=== PATIENT | male | born 1945 | race Caucasian/White ===

== ENCOUNTER 2017-03-14 09:18 | Emergency (ER) | payer OTHER, MEDICARE ==
[~2017-03-14] VITALS: Ht 180.3 cm; Wt 127.0 kg
[~2017-03-14 09:18] MED LIST: AMLO5TAB2 PO; ASPI81CH PO; ATOR1TAB18 PO; CITA20TA4 PO; DRON40TA PO; GLIP2.5T6 PO; HYDR50TAB PO; LISI40TAB PO; METO100T PO; NICO14DI3 TD; OMEP20CA3 PO; PRAD150C PO; TERA1CAP46 PO; VITA50003 PO
[2017-03-14] MEDS ORDERED: METO100T PO (09:59)
[2017-03-14] MEDS ORDERED: METF500T PO ×2 (09:59)
[2017-03-14] MEDS ORDERED: METF1000 PO (09:59)
[2017-03-14] MEDS ORDERED: K-TA10TA2 PO ×2 (09:59)
[2017-03-14] MEDS ORDERED: GABAPENTIN 300 MG CAP PO ONE (10:45)
[2017-03-14] MEDS ORDERED: VALI5TAB PO (11:18)
[2017-03-14] MEDS ORDERED: GABA-282 PO (11:18)
[2017-03-14 11:30] VITALS: BP 108/65
[2017-03-14] MEDS ORDERED: NORCO, ANEXSIA 5/325MG TABLET (HYDROcodone/ACETAMINOPHEN) PO ONE (11:30)
--- NOTE | 2017-03-14 11:49 | ED PDOC ---
Post-Departure Follow-Up AT THIS TIME, MADE AWARE THAT PT IS REFUSING TO GET INTO CAR FROM THE WHEEL CHAIR, STATING HE CAN'T. IS SIGNIFICANTLY SMALLER THAN PT AND UNABLE TO HELP HIM AMBULATE. PT ALREADY HAS VALIUM, GABAPENTIN AND NORCO FROM ER VISIT. PT IS DIABETIC AND SOLUM-MEDROL NOT APPROPRIATE FOR THIS PT AT THIS TIME. TORADOL OR OTHER ANTI-INFLAMMATORIES ALSO NOT INDICATED PT IS ON ASA AND XARELTO. PT DENIES ANY FECAL INCONTINENCE, NUMBNESS, WEAKNESS. IMAGING NOT INDICATED AT THIS TIME. AT THIS TIME, ATTEMPTED TO CHANGE DISPOSITION TO ADMITTED. [facility] STATING CANNOT CHANGE DISPOSITION AT THIS TIME. PT IS ADMITTED BY DR. YOUNG, HOSPITALIST. AT THIS TIME ([id number]), PT STATED HE DID NOT WANT TO BE ADMITTED AND STOOD UP OUT OF THE WHEEL CHAIR IN THE EXAM ROOM AND NOW WISHES TO GO HOME. SPOKE WITH RESIDENT AND HOSPITALIST AT THIS TIME REGARDING THIS PT. ADVISED HE WAS ALREADY DISCHARGED AND HAS ALREADY SIGNED THE DISCHARGE PAPERS. PT AND LEAVING DEPARTMENT AT THIS TIME. YENI CERRATO PA-C Mar 14, 2017 11:49
[2017-03-14] MEDS ORDERED: XARE20TA PO (13:21)
[2017-03-14] MEDS ORDERED: ASPI81TA7 PO (13:21)
[2017-03-14] MEDS ORDERED: POTA20TA PO ×2 (13:21)
== END 2017-03-14 11:33 | disposition home or self-care (01) ==
LOC: M ED 10:43
DX: M54.42 Lumbago with sciatica, left side (principal); R01.1 Cardiac murmur, unspecified; E11.9 Type 2 diabetes mellitus without complications; I25.10 Atherosclerotic heart disease of native coronary artery without angina pectoris; Z95.5 Presence of coronary angioplasty implant and graft; Z79.01 Long term (current) use of anticoagulants; F17.200 Nicotine dependence, unspecified, uncomplicated; Z79.899 Other long term (current) drug therapy; Z79.84 Long term (current) use of oral hypoglycemic drugs; Z79.82 Long term (current) use of aspirin
CPT/HCPCS: 96372; 99282; J3360

== ENCOUNTER 2017-03-17 09:54 | Inpatient (IN) | payer OTHER, MEDICARE ==
[~2017-03-17] VITALS: Ht 182.9 cm; Wt 103.0 kg
[2017-03-17] MEDS: LIDOCAINE 5% (LIDODERM) PATCH TD SCH (09:00)
[~2017-03-17 09:54] MED LIST changes: +ASPI81TA7 PO; +GABA-282 PO; +K-TA10TA2 PO; +METF1000 PO; +METF500T PO; +POTA20TA PO; +VALI5TAB PO; +XARE20TA PO
[2017-03-17] MEDS ORDERED: GABA-282 PO (10:28)
[2017-03-17] MEDS ORDERED: DIAZ5TAB PO (10:28)
[2017-03-17] MEDS ORDERED: SODIUM CHLORIDE 0.9% 1000 ML IV ONE (10:30)
[2017-03-17] MEDS ORDERED: ONDANSETRON 4MG/2ML VIAL (J2405) IV ONE (10:30)
[2017-03-17] MEDS ORDERED: MORPHINE 4 MG/ML 1ML SYRINGE IV ONE (10:30)
[2017-03-17 10:58] LABS: BASO # 0.1 K/mm3 (0.0-0.2); BASO % 0.4 % (0.0-1.0); EOS # 0.4 K/mm3 (0.0-0.50); EOS % 2.9 % (0.0-3.0); LARGE UNSTAINED CELL # 0.2 K/mm3 (0.0-0.4); LARGE UNSTAINED CELL % 1.7 % (0.0-4.0); LYMPH # 2.2 K/mm3 (1.5-4.5); LYMPH % 15.9 % (24.0-44.0); MEAN CORPUSCULAR HEMOGLOBIN 27.8 pg (27.0-33.0); MEAN CORPUSCULAR HGB CONC 31.6 g/dl (32.0-36.5); MONO # 0.8 K/mm3 (0.0-0.8); MONO % 6.3 % (0.0-5.0); NEUTROPHILS # 9.1 K/mm3 (1.8-7.7); NEUTROPHILS % 72.7 % (36.0-66.0); PLATELET COUNT, AUTOMATED 298 k/mm3 (150-450); RED CELL DISTRIBUTION WIDTH 14.5 % (11.5-14.5); WHITE BLOOD COUNT 12.5 K/mm3 (4.0-10.0)
[2017-03-17 11:15] LABS: ANION GAP 5 MEQ/L (8-16); BLOOD UREA NITROGEN 17 MG/DL (7-18); CALCIUM LEVEL 9.2 MG/DL (8.8-10.2); CARBON DIOXIDE LEVEL 30 MEQ/L (21-32); CHLORIDE LEVEL 106 MEQ/L (98-107); CREATININE FOR GFR 0.94 MG/DL (0.70-1.30); GLOMERULAR FILTRATION RATE > 60.0 (>49); GLUCOSE, FASTING 130 MG/DL (80-110); POTASSIUM SERUM 4.5 MEQ/L (3.5-5.1); SODIUM LEVEL 141 MEQ/L (136-145)
[2017-03-17] MEDS ORDERED: ACETAMINOPHEN TAB 650MG DOSE (2X325MG) PO PRN (12:45)
[2017-03-17] MEDS ORDERED: ONDANSETRON 4MG/2ML VIAL (J2405) IV PRN (12:45)
[2017-03-17] MEDS ORDERED: GLUCOSE 4 GM CHEW TABLET PO PRN (12:45)
[2017-03-17] MEDS ORDERED: DEXTROSE 50% 50 ML SYRINGE IV PRN (12:45)
[2017-03-17] MEDS ORDERED: GLUCAGON FOR INJ 1 MG VIAL (J1610) SC PRN (12:45)
[2017-03-17] MEDS ORDERED: ONDANSETRON 4 MG TAB (S0181) PO PRN (12:45)
--- NOTE | 2017-03-17 15:06 | HPEPDOC ---
Medical History and Physical Date of Admission Mar 17, 2017 at 12:39 History and Physical HISTORY AND PHYSICAL Date of admission: 03/17/2017 PCP: Dr. Manoj Mac at the [facility] Chief complaint: back pain HPI: 71-year-old male with atrial fibrillation status post ablation and pacemaker placement, coronary artery disease status post stents, diabetes mellitus type 2, hypertension, "a bad valve," who presented to the emergency department because his lower back hurt. Patient was seen in our emergency department for the same symptoms on . At that time, the patient was initially discharged from the ER, but the patient then stated he was unable to walk, so he was offered admission. The admitting resident physician went to see him, but he did not want to stay in the hospital and he stood up and walked, so he was subsequently discharged from the emergency department. At that time, he was given prescriptions for Valium and Neurontin. He proceeded to go to the emergency department at [facility] on Saturday. He tells me that they gave him some medication but he is not sure what it was. He is returning today because he states that he continues to be in pain. He states the pain is located at the center of his back and runs down his left leg. He says it began approximately 4 days ago. He describes it as feeling like some has kicked him in the back and stabbed him. He says that he has frequently had this same pain before, but it has never been this bad. He describes it as constant. Of note, the patient was taking the Valium more frequently than he was prescribed, but has not been taking the Neurontin. The patient initially says that nothing makes it better and nothing makes it worse, but after further discussion, he states that if he walks for a long distance, that bothers his back. He also states that his daughter gave him one of her tramadol, and that did not help. He denies any numbness or tingling in his groin. He states that if he attempts to urinate while standing, it is very painful, but if he urinates into the urinal while laying in bed, he is able to urinate without any difficulty. The patient does report several episodes of loose stools over the last couple days. He states that he will know he has to use the restroom, but they are so loose that he sometimes has an accident before he is able to make it to the commode. In the emergency department a rectal exam was performed, and was noted to show normal rectal tone Past medical history: Atrial fibrillation, coronary artery disease, diabetes mellitus type 2, hypertension, "a bad valve" that the patient is unable to further describe nor is he able to describe which valve it is Past surgical history: Cardiac ablation, pacemaker placement, back surgery, knee surgery, cardiac stents Family history: Diabetes mellitus type 2, coronary artery disease Social history: The patient used to smoke approximately one pack per day, he currently has decreased it to one third of a pack per day. He reports drinking heavily in the past, but states that he quit approximately 6-7 years ago. He denies any drug use. Allergies: No known drug allergies Review of systems: General: Negative for fever and chills Eyes: Negative for vision changes and ocular discharge ENT: Negative for sore throat and nose bleed Cardiovascular: Negative for chest pain and palpitations Respiratory: Negative for cough and shortness of breath GI: Negative for nausea and vomiting, positive for diarrhea Musculoskeletal: Positive for back pain Skin: Negative for rash Neuro: Negative for headache, dizziness, numbness. The patient reports occasional tingling in his left foot but none at the moment. Psych: Negative for depression and suicidal ideation Endocrine: Negative for polyuria : Positive for dysuria Heme: Negative for bleeding Home meds: See below Physical exam: Vital signs: Vital Sign - Last 24 Hours 03/17/17 03/17/17 03/17/17 03/17/17 10:19 10:24 10:32 10:39 Temp 97.9 Pulse 66 64 76 Resp 18 B/P (MAP) 178/79 (112) Pulse Ox 93 94 93 O2 Delivery Room Air 03/17/17 03/17/17 03/17/17 03/17/17 10:54 10:56 10:58 11:09 Pulse 60 60 Resp 14 B/P (MAP) 171/76 (107) Pulse Ox 94 88 03/17/17 03/17/17 03/17/17 03/17/17 11:10 11:13 11:24 11:39 Pulse 60 60 Resp 16 B/P (MAP) 147/69 (95) Pulse Ox 87 88 03/17/17 03/17/17 03/17/17 03/17/17 11:43 11:54 11:58 12:09 Pulse 60 60 B/P (MAP) 134/80 (98) 136/62 (86) Pulse Ox 87 88 03/17/17 03/17/17 03/17/17 03/17/17 12:39 12:43 12:58 13:00 Temp 99.6 Pulse 62 60 102 Resp 18 B/P (MAP) 145/72 (96) 139/65 (89) 137/91 (106) Pulse Ox 89 88 97 O2 Delivery Room Air 03/17/17 03/17/17 03/17/17 03/17/17 13:13 13:28 13:43 13:58 Pulse 60 66 74 60 B/P (MAP) 207/95 (132) Pulse Ox 92 90 91 90 03/17/17 03/17/17 03/17/17 14:13 14:28 14:59 Temp 98.5 Pulse 60 60 81 Resp 18 B/P (MAP) 142/78 (99) Pulse Ox 88 86 96 Gen.: awake, alert, no acute distress Eyes: Extraocular movements intact, normal sclera ENT: Moist mucous membranes Cardiovascular: RRR Lungs: clear to auscultation bilaterally, no rales, rhonchi, or wheeze Abdomen: Soft, NT/ND, normal BS Musculoskeletal: ipsilateral and contralateral straight leg elicits only back pain Extremities: No peripheral edema Neuro: alert and oriented 3, normal speech, both legs are about 3-4/5 strength , however, they are equal and symmetric; sensation to touch is equal in the BLE Psych: Normal mood with congruent affect Labs and radiology: See below WBC 12.5 BMP unremarkable UA shows 1+ leuk esterase, 32 wbc's, 1+ bacteria Assessment and plan: 71-year-old male with atrial fibrillation status post ablation and pacemaker placement, coronary artery disease status post stents, diabetes mellitus type 2 , hypertension, "a bad valve," who presented to the emergency department because his lower back hurt. He is admitted for intractable back pain, as well as possible UTI. 1. Possible UTI: We'll start the patient on Rocephin as well as check urine and blood cultures. The patient is afebrile, but his white count is slightly elevated to 12.5. The patient has not received any steroids at our facility, but we do not know what he received at [facility] emergency department. 2. Intractable back pain: The patient denies any saddle anesthesia, and he is not experiencing urinary retention. He reports very loose stools, and although he has had a couple accidents, he reports that he can feel when he needs to go, he just has trouble making it to the bathroom quickly enough. His straight leg exam is negative. Rectal exam performed by the ED physician showed normal rectal tone. I do not believe that this represents cauda equina. The patient was started on Valium and Neurontin recently, which we will continue. We will also add narcotics as needed for pain control, as well as Flexeril and a lidocaine patch. Given that he has diabetes, as well as the fact that he is on a blood thinner, we will attempt to avoid any steroids. Additionally, because of the blood thinner, we will also attempt to avoid any NSAIDs. The patient reports that he follows with Dr. Toth, one [facility] the [facility] at [facility] orthopedics. If the patient continues to be in persistent pain, we may consider consultation with their group. If he were to require imaging, he would need a CT myelogram, as his pacemaker prevents him from getting an MRI. We'll also get PT and OT to work with the patient. 3. A. fib status post ablation and pacemaker placement: The patient appears to be in sinus rhythm at this time. Continue his home metoprolol and home several toe. 4. Coronary artery disease status post stents: The patient currently denies any chest pain. We'll continue his home aspirin, statin, beta winston. 5. Diabetes mellitus type 2: We will hold the patient's home metformin. We will use sliding scale insulin while the patient is in-house. 6. Hypertension: The patient has had a few episodes of elevated blood pressure in the ER, but he has also had several readings that are normal. I suspect that this might be related to his pain. We'll continue his home beta winston, and will otherwise treat his underlying pain. DVT prophylaxis: Home Xarelto Dispo: Place in observation on the service of Dr. Portillo CODE STATUS: DO NOT INTUBATE Vital Signs Vital Signs Date Time Temp Pulse Resp B/P (MAP) Pulse Ox O2 Delivery O2 Flow Rate FiO2 03/17/17 14:59 98.5 81 18 142/78 (99) 96 03/17/17 13:00 Room Air Laboratory Data Labs 24H Laboratory Tests 2 03/17/17 10:47: White Blood Count 12.5H, Red Blood Count 4.56, Hemoglobin 12.7L, Hematocrit 40.1L, Mean Corpuscular Volume 88.0, Mean Corpuscular Hemoglobin 27.8, Mean Corpuscular Hemoglobin Concent 31.6L, Red Cell Distribution Width 14.5, Platelet Count 298, Neutrophils (%) (Auto) 72.7H, Lymphocytes (%) (Auto) 15.9L, Monocytes (%) (Auto) 6.3H, Eosinophils (%) (Auto) 2.9, Basophils (%) (Auto) 0.4 , Neutrophils # (Auto) 9.1H, Lymphocytes # (Auto) 2.2, Monocytes # (Auto) 0.8, Eosinophils # (Auto) 0.4, Basophils # (Auto) 0.1, Large Unclassified Cells % 1.7 , Large Unclassified Cells # 0.2, Urine Appearance HAZY, Urine Color YELLOW, Urine pH 5.0, Urine Specific Curran 1.021, Urine Protein 2+H, Urine Glucose (UA ) NEGATIVE, Urine Ketones NEGATIVE, Urine Urobilinogen 0.2, Urine Bilirubin NEGATIVE, Urine Leukocyte Esterase 1+H, Urine Blood NEGATIVE, Urine Nitrite NEGATIVE, Urine WBC (Auto) 32H, Urine RBC (Auto) 5H, Urine Hyaline Casts (Auto) 0, Urine Bacteria (Auto) 1+H, Urine Squamous Epithelial Cells 0, Urine Mucus ( Auto) SMALL, Urine Sperm (Auto) , Anion Gap 5L, Glomerular Filtration Rate > 60.0, Blood Urea Nitrogen 17, Creatinine 0.94, Sodium Level 141, Potassium Level 4.5, Chloride Level 106, Carbon Dioxide Level 30, Calcium Level 9.2 CBC/BMP Laboratory Tests 03/17/17 10:47 Red Blood Count 4.56, Mean Corpuscular Volume 88.0, Mean Corpuscular Hemoglobin 27.8, Mean Corpuscular Hemoglobin Concent 31.6 L, Red Cell Distribution Width 14.5, Neutrophils (%) (Auto) 72.7 H, Lymphocytes (%) (Auto) 15.9 L, Monocytes (% ) (Auto) 6.3 H, Eosinophils (%) (Auto) 2.9, Basophils (%) (Auto) 0.4, Neutrophils # (Auto) 9.1 H, Lymphocytes # (Auto) 2.2, Monocytes # (Auto) 0.8, Eosinophils # (Auto) 0.4, Basophils # (Auto) 0.1, Calcium Level 9.2 Home Medications Scheduled Aspirin (Aspirin) 81 Mg Tab, 81 MG PO DAILY Atorvastatin Calcium (Atorvastatin Calcium) 80 Mg Tab, 80 MG PO QPM Gabapentin (Gabapentin) 300 Mg Cap, 300 MG PO TID Metformin Hydrochloride (Metformin HCl) 1,000 Mg Tab, 1,000 MG PO QAM Metformin Hydrochloride (Metformin HCl) 500 Mg Tab, 500 MG PO BID TAKE AT NOON AND DINNERTIME Metoprolol Tartrate (Metoprolol Tartrate) 100 Mg Tab, 100 MG PO BID Omeprazole (Omeprazole) 20 Mg Cap, 20 MG PO DAILY Potassium Chloride (Klor-Con M20) 20 Meq Tabcr, 40 MEQ PO QAM Potassium Chloride (Klor-Con M20) 20 Meq Tabcr, 20 MEQ PO QPM Rivaroxaban (Xarelto) 20 Mg Tab, 20 MG PO QPM Terazosin HCl (Terazosin HCl) 1 Mg Cap, 1 MG PO QPM Scheduled PRN Diazepam (Diazepam) 5 Mg Tab, 5 MG PO Q8H PRN for BACK PAIN Allergies Coded Allergies: No Known Drug Allergy (Verified Allergy, Unknown, 05/06/14) CJ YOUNG Mar 17, 2017 15:06
[2017-03-17] MEDS: cefTRIAXone SOD 1 GM in D5W MINI-BAG PLUS 50 ML IV SCH (15:42)
[2017-03-17] MEDS: MORPHINE 2 MG/ML 1ML SYRINGE IV PRN ×2 (15:43→22:33)
[2017-03-17] MEDS: GABAPENTIN 300 MG CAP PO SCH ×2 (15:45→21:20)
[2017-03-17 16:00] VITALS: BP 172/98
[2017-03-17] MEDS: PERCOCET 5MG/325MG TAB PO PRN ×2 (17:06→21:12)
[2017-03-17] MEDS: HumaLOG INSULIN (NovoLOG) PER UNIT SC SCH ×2 (17:08→21:00)
[2017-03-17] MEDS: **NOTE PATIENT COMMENT** MISC XX SCH (21:00)
[2017-03-17] MEDS: ATORVASTATIN 20 MG TAB PO SCH (21:19)
[2017-03-17] MEDS: RIVAROXABAN 20 MG TAB (XARELTO) PO SCH (21:19)
[2017-03-17] MEDS: DOCUSATE SODIUM 100 MG CAP PO SCH (21:20)
[2017-03-17] MEDS: METOPROLOL TARTRATE 100 MG TAB PO SCH (21:20)
[2017-03-17] MEDS: TERAZOSIN 1 MG CAP PO SCH (21:20)
[2017-03-17] MEDS: POTASSIUM CHLORIDE 10 MEQ SR TABLET PO SCH (21:21)
[2017-03-17 22:00] VITALS: BP 164/81
[2017-03-18] MEDS: MORPHINE 2 MG/ML 1ML SYRINGE IV PRN ×5 (03:27→22:08)
[2017-03-18 06:00] VITALS: BP 127/60
[2017-03-18 06:48] LABS: ANION GAP 6 MEQ/L (8-16); BLOOD UREA NITROGEN 20 MG/DL (7-18); CALCIUM LEVEL 8.5 MG/DL (8.8-10.2); CARBON DIOXIDE LEVEL 31 MEQ/L (21-32); CHLORIDE LEVEL 106 MEQ/L (98-107); CREATININE FOR GFR 1.03 MG/DL (0.70-1.30); GLOMERULAR FILTRATION RATE > 60.0 (>49); GLUCOSE, FASTING 169 MG/DL (80-110); MAGNESIUM LEVEL 1.7 MG/DL (1.8-2.4); POTASSIUM SERUM 4.3 MEQ/L (3.5-5.1); SODIUM LEVEL 143 MEQ/L (136-145)
[2017-03-18 07:21] LABS: BASO # 0.1 K/mm3 (0.0-0.2); BASO % 0.6 % (0.0-1.0); EOS # 0.5 K/mm3 (0.0-0.50); EOS % 4.3 % (0.0-3.0); LARGE UNSTAINED CELL # 0.2 K/mm3 (0.0-0.4); LYMPH # 2.5 K/mm3 (1.5-4.5); LYMPH % 20.5 % (24.0-44.0); MEAN CORPUSCULAR HEMOGLOBIN 28.5 pg (27.0-33.0); MEAN CORPUSCULAR HGB CONC 32.1 g/dl (32.0-36.5); MEAN CORPUSCULAR VOLUME 88.9 fl (80.0-96.0); MONO # 0.8 K/mm3 (0.0-0.8); NEUTROPHILS # 7.1 K/mm3 (1.8-7.7); NEUTROPHILS % 65.5 % (36.0-66.0); PLATELET COUNT, AUTOMATED 264 k/mm3 (150-450); RED CELL DISTRIBUTION WIDTH 14.5 % (11.5-14.5); WHITE BLOOD COUNT 10.9 K/mm3 (4.0-10.0)
[2017-03-18] MEDS: GABAPENTIN 300 MG CAP PO SCH ×3 (08:41→20:18)
[2017-03-18] MEDS: OMEPRAZOLE 20 MG CAP PO SCH (08:41)
[2017-03-18] MEDS: DOCUSATE SODIUM 100 MG CAP PO SCH ×2 (08:41→20:18)
[2017-03-18] MEDS: POTASSIUM CHLORIDE 10 MEQ SR TABLET PO SCH ×2 (08:41→20:18)
[2017-03-18] MEDS: METOPROLOL TARTRATE 100 MG TAB PO SCH ×2 (08:41→20:18)
[2017-03-18] MEDS: ASPIRIN 81 MG ENTERIC TAB PO SCH (08:42)
[2017-03-18] MEDS: HumaLOG INSULIN (NovoLOG) PER UNIT SC SCH ×4 (08:42→20:19)
[2017-03-18] MEDS: LIDOCAINE 5% (LIDODERM) PATCH TD SCH (08:43)
[2017-03-18] MEDS ORDERED: MAG SULF 1GM/100ML (MAG RUN) 1 GM in APPROPRIATE DILUENT 1 EA IV ONE (09:00)
[2017-03-18] MEDS: PERCOCET 5MG/325MG TAB PO PRN ×3 (10:37→20:19)
--- NOTE | 2017-03-18 12:01 | IPNPDOC ---
Subjective Date Seen The patient was seen on 03/18/17. Subjective Chief Complaint/HPI The patient is a 71-year-old male admitted with a reason for visit of Intractable Back Pain. Events since last encounter Patient reports still having back pain. Pain is below the gluteus coordinates the leg on the left. Patient describes that the pain goes down his left leg to his heel. Patient rates the pain at approximately 3 out of 10 when laying down and with sitting up or moving goes to a 10 out of 10. Physical therapy stopped by today the patient was able to sit on the edge of the bed. General: Denies: Chills Constitutional: Denies: Chills, Fever Eyes: Denies: Vision change ENT: Denies: Head Aches Skin: Denies: Rash, Lesions Pulmonary: Denies: Dyspnea, Cough Cardiovascular: Denies: Chest Pain, Palpitations Gastrointestinal: Denies: Nausea, Vomiting, Abdominal Pain Genitourinary: Denies: Dysuria, Frequency Musculoskeletal: Reports: Back Pain (radiates down to his left heel) Neurological: Denies: Weakness, Numbness Psych: Reports: Mood Normal Objective Physical Examination General Exam: Positive: Alert, Cooperative, No Acute Distress Eye Exam: Positive: PERRLA, EOMI ENT Exam: Positive: Atraumatic, Mucous membr. moist/pink, Pharynx Normal Neck Exam: Positive: Supple, Negative: JVD, thyromegaly Chest Exam: Positive: Clear to auscultation, Normal air movement Heart Exam: Positive: Rate Normal, Normal S1, Normal S2, Negative: Gallops, Murmurs, Rubs Abdomen Exam: Positive: Normal bowel sounds, Negative: Tenderness, Mass Extremity Exam: Positive: Normal pulses (radial pulses 2 out of 4 bilaterally. Pupils 2 out of 4 bilaterally.), Negative: Clubbing, Cyanosis, Edema Skin Exam: Positive: Nl turgor and temperature, Negative: Rash, Breakdown Neuro Exam: Positive: Normal Speech, Strength at 5/5 X4 ext (lower extremities. ), Sensation Intact (no numbness lower extremities.) Psych Exam: Positive: Mood NL, Oriented x 3 VS, I&O, 24H, Fishbone Vital Signs/I&O Vital Signs Date Time Temp Pulse Resp B/P (MAP) Pulse Ox O2 Delivery O2 Flow Rate FiO2 03/18/17 11:44 18 03/18/17 11:40 92 Room Air 03/18/17 08:41 59 127/60 03/18/17 06:00 97.9 I&O- Last 24 Hours up to 6 AM 03/18/17 06:00 Intake Total 1250 ml Output Total 800 ml Balance 450 ml Laboratory Data 24H LABS Laboratory Tests 2 03/17/17 16:50: Bedside Glucose (Misc Panel) 133H 03/17/17 21:14: Bedside Glucose (Misc Panel) 127H 03/18/17 05:58: White Blood Count 10.9H, Red Blood Count 4.13L, Hemoglobin 11.8L, Hematocrit 36.7L, Mean Corpuscular Volume 88.9, Mean Corpuscular Hemoglobin 28.5, Mean Corpuscular Hemoglobin Concent 32.1, Red Cell Distribution Width 14.5, Platelet Count 264, Neutrophils (%) (Auto) 65.5, Lymphocytes (%) (Auto) 20.5L, Monocytes (%) (Auto) 7.0H, Eosinophils (%) (Auto) 4.3H, Basophils (%) (Auto) 0.6, Neutrophils # (Auto) 7.1, Lymphocytes # (Auto) 2.5, Monocytes # (Auto) 0.8, Eosinophils # (Auto) 0.5, Basophils # (Auto) 0.1, Large Unclassified Cells % 2.0 , Large Unclassified Cells # 0.2, Anion Gap 6L, Glomerular Filtration Rate > 60.0, Blood Urea Nitrogen 20H, Creatinine 1.03, Sodium Level 143, Potassium Level 4.3, Chloride Level 106, Carbon Dioxide Level 31, Calcium Level 8.5L, Magnesium Level 1.7L 03/18/17 11:36: Bedside Glucose (Misc Panel) 116H CBC/BMP Laboratory Tests 03/18/17 05:58 Red Blood Count 4.13 L, Mean Corpuscular Volume 88.9, Mean Corpuscular Hemoglobin 28.5, Mean Corpuscular Hemoglobin Concent 32.1, Red Cell Distribution Width 14.5, Neutrophils (%) (Auto) 65.5, Lymphocytes (%) (Auto) 20.5 L, Monocytes (%) (Auto) 7.0 H, Eosinophils (%) (Auto) 4.3 H, Basophils (%) (Auto) 0.6, Neutrophils # (Auto) 7.1, Lymphocytes # (Auto) 2.5, Monocytes # ( Auto) 0.8, Eosinophils # (Auto) 0.5, Basophils # (Auto) 0.1, Calcium Level 8.5 L Microbiology Microbiology 03/17/17 Blood Culture, Received Pending 03/17/17 Blood Culture, Received Pending 03/17/17 Urine Culture - Final, Complete Assessment/Plan Patient having no symptoms of UTI. Stopping patient's antibiotic today. Problems (1) Intractable back pain Problem Text: Patient has received multiple doses of pain medication. Patient is currently on Percocet 1 tab every 4 hours when necessary, morphine every 4 hours 2 mg IV when necessary, Valium 5 mg every 8 hours when necessary, gabapentin 300 mg 3 times a day. Patient also is receiving Zofran when necessary 's every 6 hours. Patient still had some pain on exam. Patient had full muscle strength bilaterally. Was unable to walk for PT today. May need to order a CT myelogram or MRI. Patient has a history of a pacemaker. This is to better assess structure of the spine. Patient has been seen by orthopedist. May need to refer back for pain management. (2) Left-sided low back pain with sciatica Status: Acute Problem Text: Patient still complaining of pain going down his leg. Pain is not as bad falling down. May need to assess with imaging. (3) Control of atrial fibrillation with pacemaker Problem Text: Patient is in sinus rhythm at this time. Continue metoprolol and Xarelto. (4) Diabetes mellitus type 2 in obese Problem Text: Continue to hold patient's metformin. Will use sliding scale insulin. (5) Hypertension Problem Text: Continue patient's home beta winston. Monitor as needed. (6) CAD (coronary artery disease) Problem Text: Patient's history of CT. Continue patient's aspirin, statin, beta winston. Monitor as needed. Plan / VTE VTE Prophylaxis Ordered?: Yes (home Xarelto) GME ATTESTATION GME ATTESTATION My preceptor for this patient encounter was Dr. Portillo and he was physically present in the building during the encounter and was fully available. As needed , all aspects of the patient interview, examination, medical decision making process, and medical care plan development were reviewed and approved by the preceptor. Preceptor is aware and concurs with the plan as stated in the body of this note and will attest to such by his/her cosignature. VIOLET CHAVES DO Mar 18, 2017 12:01
[2017-03-18 14:00] VITALS: BP 136/65
[2017-03-18] MEDS: cefTRIAXone SOD 1 GM in D5W MINI-BAG PLUS 50 ML IV SCH (15:50)
[2017-03-18] MEDS: ATORVASTATIN 20 MG TAB PO SCH (20:17)
[2017-03-18] MEDS: TERAZOSIN 1 MG CAP PO SCH (20:18)
[2017-03-18] MEDS: RIVAROXABAN 20 MG TAB (XARELTO) PO SCH (20:18)
[2017-03-18] MEDS: **NOTE PATIENT COMMENT** MISC XX SCH (20:19)
[2017-03-18 22:00] VITALS: BP 145/76
[2017-03-19] MEDS: PERCOCET 5MG/325MG TAB PO PRN ×4 (02:00→16:55)
--- NOTE | 2017-03-19 02:13 | REP ---
Clinical: Pacemaker. Arnaud: 05/06/2014. Findings: Mediastinum and cardiac silhouette are within normal limits. Dual lead pacemaker in satisfactory position. Lung lan are clear without focal consolidation, effusion, or pneumothorax. Skeletal structures intact. Impression: No acute cardiopulmonary process or focal consolidation appreciated. Signed by Rosendo Victor MD 03/19/2017 02:05 A
[2017-03-19 06:00] VITALS: BP 125/61
[2017-03-19 06:51] LABS: BASO % 0.4 % (0.0-1.0); EOS # 0.6 K/mm3 (0.0-0.50); EOS % 5.3 % (0.0-3.0); LARGE UNSTAINED CELL # 0.3 K/mm3 (0.0-0.4); LARGE UNSTAINED CELL % 2.8 % (0.0-4.0); LYMPH # 2.2 K/mm3 (1.5-4.5); LYMPH % 20.4 % (24.0-44.0); MEAN CORPUSCULAR HEMOGLOBIN 27.6 pg (27.0-33.0); MEAN CORPUSCULAR HGB CONC 30.7 g/dl (32.0-36.5); MEAN CORPUSCULAR VOLUME 89.9 fl (80.0-96.0); MONO # 0.7 K/mm3 (0.0-0.8); MONO % 6.8 % (0.0-5.0); NEUTROPHILS # 6.9 K/mm3 (1.8-7.7); NEUTROPHILS % 64.3 % (36.0-66.0); PLATELET COUNT, AUTOMATED 285 k/mm3 (150-450); RED CELL DISTRIBUTION WIDTH 14.3 % (11.5-14.5); WHITE BLOOD COUNT 10.8 K/mm3 (4.0-10.0)
[2017-03-19 07:16] LABS: ANION GAP 4 MEQ/L (8-16); BLOOD UREA NITROGEN 23 MG/DL (7-18); CALCIUM LEVEL 8.7 MG/DL (8.8-10.2); CARBON DIOXIDE LEVEL 32 MEQ/L (21-32); CHLORIDE LEVEL 107 MEQ/L (98-107); CREATININE FOR GFR 1.03 MG/DL (0.70-1.30); GLOMERULAR FILTRATION RATE > 60.0 (>49); GLUCOSE, FASTING 137 MG/DL (80-110); POTASSIUM SERUM 4.2 MEQ/L (3.5-5.1); SODIUM LEVEL 143 MEQ/L (136-145)
[2017-03-19] MEDS: ASPIRIN 81 MG ENTERIC TAB PO SCH (07:39)
[2017-03-19] MEDS: OMEPRAZOLE 20 MG CAP PO SCH (07:39)
[2017-03-19] MEDS: DOCUSATE SODIUM 100 MG CAP PO SCH ×2 (07:39→20:53)
[2017-03-19] MEDS: METOPROLOL TARTRATE 100 MG TAB PO SCH ×2 (07:39→20:53)
[2017-03-19] MEDS: LIDOCAINE 5% (LIDODERM) PATCH TD SCH (07:39)
[2017-03-19] MEDS: POTASSIUM CHLORIDE 10 MEQ SR TABLET PO SCH ×2 (07:40→20:53)
[2017-03-19] MEDS: GABAPENTIN 300 MG CAP PO SCH ×3 (07:40→20:53)
[2017-03-19] MEDS: MORPHINE 2 MG/ML 1ML SYRINGE IV PRN ×2 (07:40→12:10)
[2017-03-19] MEDS: HumaLOG INSULIN (NovoLOG) PER UNIT SC SCH ×4 (07:41→20:54)
--- NOTE | 2017-03-19 09:34 | REP ---
MRI LUMBAR SPINE WITHOUT AND WITH CONTRAST: HISTORY: Back pain. CONTRAST: ProHance 25 mL. COMPARISON: 01/01/2013. Decreased signal intensity on T2-weighted images is present in the lumbar intervertebral discs. The discs are decreased in height. These findings are consistent with disc degeneration. A diffuse disc bulge is present at the L1-2 level. There is hypertrophy of the ligamenta flava and posterior articulating facets. These findings produce minimal central canal stenosis. The L1 nerves exit the neural foramina without compression. A diffuse disc bulge is present at the L2-3 level. There is hypertrophy of the ligamenta flava and posterior articulating facets. These findings produce minimal central canal stenosis. The L2 nerves exit the neural foramina without compression. A diffuse disc bulge is present at the L3-4 level. There is hypertrophy of the ligamenta flava and posterior articulating facets. These findings produce moderate central canal stenosis. The L3 nerves exit the neural foramina without compression. A diffuse disc bulge is present at the L4-5 level. There is hypertrophy of the ligamenta flava and posterior articulating facets. The previously noted right synovial cyst is not seen. These findings produce severe central canal stenosis. The L4 nerves exit the neural foramina without compression. There is severe loss of height of the L5-S1 intervertebral disc. Posterior and lateral osteophytes are present. There is no thecal sac compression. There is hypertrophy of the posterior articulating facets. There is compression of the L5 nerves in the neural foramina. A right laminectomy defect is present. There is clumping of the cauda equina at the L5-S1 level consistent with arachnoiditis. The conus medullaris is normal in appearance terminating at the level of the T12-L1 intervertebral disc. Normal signal intensity is present in the lumbar vertebral bodies. IMPRESSION: 1. Minimal central canal stenosis at the L1-2 and L2-3 levels secondary to disc bulge, ligamentous and facet hypertrophy. The canal stenosis at the L2-3 level is a new finding. 2. Moderate central canal stenosis at the L3-4 level secondary to disc bulge, ligamentous and facet hypertrophy. There has been progression of the canal stenosis. 3. Severe central canal stenosis at the L4-5 level secondary to disc bulge, ligamentous and facet hypertrophy. The previously noted right synovial cyst is not seen. 4. Severe loss of height of the L5-S1 intervertebral disc. Posterior and lateral osteophytes are present. There is no thecal sac compression. There is compression of the L5 nerves in the neural foramina. A right laminectomy defect is present. The left L5 nerve compression is a new finding. 5. Arachnoiditis. Signed by Ricardo Luis MD 03/19/2017 09:44 A
--- NOTE | 2017-03-19 11:44 | IPNPDOC ---
Subjective Date Seen The patient was seen on 03/19/17. Subjective Chief Complaint/HPI The patient is a 71-year-old male admitted with a reason for visit of Intractable Back Pain. Events since last encounter Patient reports the back pain feels about the same as yesterday. No change in pain while laying down. Patient has not yet ambulated. Reports sitting on the edge of the bed yesterday. Has some discomfort with urination. Describes it as back pain. Constitutional: Denies: Chills, Fever Eyes: Denies: Vision change ENT: Denies: Head Aches Skin: Denies: Lesions Pulmonary: Denies: Dyspnea, Cough Cardiovascular: Denies: Chest Pain, Palpitations Gastrointestinal: Denies: Nausea, Vomiting, Abdominal Pain Genitourinary: Reports: Dysuria (back pain with urinating standing up. ), Denies: Frequency, Incontinence, Hematuria Neurological: Reports: Other Symptoms (No tremors. ), Denies: Weakness, Numbness, Change in speech Psych: Reports: Mood Normal Objective Physical Examination General Exam: Positive: Alert, Cooperative, No Acute Distress Eye Exam: Positive: PERRLA, EOMI ENT Exam: Positive: Atraumatic, Mucous membr. moist/pink, Pharynx Normal Neck Exam: Positive: Supple, Negative: JVD, thyromegaly Chest Exam: Positive: Clear to auscultation, Normal air movement Heart Exam: Positive: Rate Normal, Murmurs (systolic murmur 2 out of 6 left sternal border.) Abdomen Exam: Positive: Normal bowel sounds, Negative: Tenderness, Mass Extremity Exam: Positive: Normal pulses (radial pulses 2 out of 4 bilaterally. ), Other (No tremors on exam. ), Negative: Clubbing, Cyanosis, Edema Skin Exam: Positive: Nl turgor and temperature, Negative: Rash, Breakdown Neuro Exam: Positive: Normal Speech Psych Exam: Positive: Mood NL, Oriented x 3 Assessment /Plan Problems (1) Intractable back pain Problem Text: Patient has received multiple doses of pain medication. Patient is currently on Percocet 1 tab every 4 hours when necessary, morphine every 4 hours 2 mg IV when necessary, Valium 5 mg every 8 hours when necessary, gabapentin 300 mg 3 times a day. Patient also is receiving Zofran when necessary 's every 6 hours. Patient still had some pain on exam. Patient had full muscle strength bilaterally. MRI was ordered for this morning. This is to better assess structure of the spine. Patient does have a pacemaker however, patient can have an MRI. A benefits representative from the pacemaker company will be present during the MRI. Patient has a history of a pacemaker. This was visualized on chest radiograph on 03/18/17. Patient has been seen by orthopedist. May need to refer back for pain management. (2) Left-sided low back pain with sciatica Status: Acute Problem Text: Patient still complaining of pain going down his leg. Pain is not as bad falling down. MRI ordered today. (3) Control of atrial fibrillation with pacemaker Problem Text: Patient is in sinus rhythm at this time. Continue metoprolol and Xarelto. (4) Diabetes mellitus type 2 in obese Problem Text: Continue to hold patient's metformin. Will use sliding scale insulin. (5) Hypertension Problem Text: Continue patient's home beta winston. Monitor as needed. (6) CAD (coronary artery disease) Problem Text: Patient's history of MS. Continue patient's aspirin, statin, beta winston. Monitor as needed. Patient sees a Upper Extremity Surgeon at the [facility] in [place]. Patient will need to follow up outpatient. Plan/VTE VTE Prophylaxis Ordered?: Yes (home Xarelto) VS, I&O, 24H, Fishbone Vital Signs/I&O Vital Signs Date Time Temp Pulse Resp B/P (MAP) Pulse Ox O2 Delivery O2 Flow Rate FiO2 03/19/17 11:02 20 03/19/17 08:00 Room Air 03/19/17 07:39 67 125/61 03/19/17 06:00 97.5 93 03/19/17 05:21 2.0 I&O- Last 24 Hours up to 6 AM 03/19/17 06:00 Intake Total 1200 ml Output Total 250 ml Balance 950 ml Laboratory Data 24H LABS Laboratory Tests 2 03/18/17 17:18: Bedside Glucose (Misc Panel) 144H 03/18/17 19:50: Bedside Glucose (Misc Panel) 121H 03/19/17 06:23: White Blood Count 10.8H, Red Blood Count 4.31, Hemoglobin 11.9L, Hematocrit 38.8L, Mean Corpuscular Volume 89.9, Mean Corpuscular Hemoglobin 27.6, Mean Corpuscular Hemoglobin Concent 30.7L, Red Cell Distribution Width 14.3, Platelet Count 285, Neutrophils (%) (Auto) 64.3, Lymphocytes (%) (Auto) 20.4L, Monocytes (%) (Auto) 6.8H, Eosinophils (%) (Auto) 5.3H, Basophils (%) (Auto) 0.4 , Neutrophils # (Auto) 6.9, Lymphocytes # (Auto) 2.2, Monocytes # (Auto) 0.7, Eosinophils # (Auto) 0.6H, Basophils # (Auto) 0.0, Large Unclassified Cells % 2.8, Large Unclassified Cells # 0.3, Anion Gap 4L, Glomerular Filtration Rate > 60.0, Blood Urea Nitrogen 23H, Creatinine 1.03, Sodium Level 143, Potassium Level 4.2, Chloride Level 107, Carbon Dioxide Level 32, Calcium Level 8.7L, Magnesium Level 2.0 CBC/BMP Laboratory Tests 03/19/17 06:23 Red Blood Count 4.31, Mean Corpuscular Volume 89.9, Mean Corpuscular Hemoglobin 27.6, Mean Corpuscular Hemoglobin Concent 30.7 L, Red Cell Distribution Width 14.3, Neutrophils (%) (Auto) 64.3, Lymphocytes (%) (Auto) 20.4 L, Monocytes (%) (Auto) 6.8 H, Eosinophils (%) (Auto) 5.3 H, Basophils (%) (Auto) 0.4, Neutrophils # (Auto) 6.9, Lymphocytes # (Auto) 2.2, Monocytes # (Auto) 0.7, Eosinophils # (Auto) 0.6 H, Basophils # (Auto) 0.0, Calcium Level 8.7 L Microbiology Microbiology 03/17/17 Blood Culture - Preliminary, Resulted No growth after 24 hours . All specim... 03/17/17 Blood Culture - Preliminary, Resulted No growth after 24 hours . All specim... 03/17/17 Urine Culture - Final, Complete GME ATTESTATION GME ATTESTATION My preceptor for this patient encounter was Dr. Zuleta and he was physically present in the building during the encounter and was fully available. As needed , all aspects of the patient interview, examination, medical decision making process, and medical care plan development were reviewed and approved by the preceptor. Preceptor is aware and concurs with the plan as stated in the body of this note and will attest to such by his/her cosignature. VIOLET CHAVES DO Mar 19, 2017 11:44
[2017-03-19] MEDS: CYCLOBENZAPRINE 10 MG TAB PO PRN (12:55)
[2017-03-19 14:00] VITALS: BP 168/81
[2017-03-19] MEDS: ATORVASTATIN 20 MG TAB PO SCH (20:53)
[2017-03-19] MEDS: RIVAROXABAN 20 MG TAB (XARELTO) PO SCH (20:53)
[2017-03-19] MEDS: **NOTE PATIENT COMMENT** MISC XX SCH (20:54)
[2017-03-19] MEDS: TERAZOSIN 1 MG CAP PO SCH (20:54)
[2017-03-19 22:00] VITALS: BP 161/82
[2017-03-20] MEDS: PERCOCET 5MG/325MG TAB PO PRN ×3 (01:20→16:32)
[2017-03-20] MEDS: MORPHINE 2 MG/ML 1ML SYRINGE IV PRN (03:50)
[2017-03-20 06:00] VITALS: BP 149/81
[2017-03-20 07:14] LABS: BASO # 0.1 K/mm3 (0.0-0.2); BASO % 0.6 % (0.0-1.0); EOS # 0.5 K/mm3 (0.0-0.50); EOS % 4.1 % (0.0-3.0); LARGE UNSTAINED CELL # 0.2 K/mm3 (0.0-0.4); LARGE UNSTAINED CELL % 1.8 % (0.0-4.0); LYMPH # 2.6 K/mm3 (1.5-4.5); LYMPH % 17.8 % (24.0-44.0); MEAN CORPUSCULAR HEMOGLOBIN 27.6 pg (27.0-33.0); MEAN CORPUSCULAR HGB CONC 31.2 g/dl (32.0-36.5); MEAN CORPUSCULAR VOLUME 88.4 fl (80.0-96.0); MONO # 0.9 K/mm3 (0.0-0.8); MONO % 7.2 % (0.0-5.0); NEUTROPHILS % 68.5 % (36.0-66.0); PLATELET COUNT, AUTOMATED 268 k/mm3 (150-450); RED CELL DISTRIBUTION WIDTH 14.5 % (11.5-14.5); WHITE BLOOD COUNT 13.2 K/mm3 (4.0-10.0)
[2017-03-20 07:36] LABS: ANION GAP 3 MEQ/L (8-16); BLOOD UREA NITROGEN 22 MG/DL (7-18); CALCIUM LEVEL 8.7 MG/DL (8.8-10.2); CARBON DIOXIDE LEVEL 32 MEQ/L (21-32); CHLORIDE LEVEL 108 MEQ/L (98-107); CREATININE FOR GFR 0.94 MG/DL (0.70-1.30); GLOMERULAR FILTRATION RATE > 60.0 (>49); GLUCOSE, FASTING 122 MG/DL (80-110); MAGNESIUM LEVEL 1.9 MG/DL (1.8-2.4); POTASSIUM SERUM 4.3 MEQ/L (3.5-5.1); SODIUM LEVEL 143 MEQ/L (136-145)
[2017-03-20] MEDS ORDERED: PERCOCET 5MG/325MG TAB PO PRN (08:00)
[2017-03-20] MEDS: HumaLOG INSULIN (NovoLOG) PER UNIT SC SCH ×4 (08:18→20:32)
[2017-03-20] MEDS: KETOROLAC 30 MG/ML VIAL (J1885) IV SCH ×3 (08:18→20:29)
[2017-03-20] MEDS: GABAPENTIN 300 MG CAP PO SCH ×3 (08:19→20:31)
[2017-03-20] MEDS: OMEPRAZOLE 20 MG CAP PO SCH (08:19)
[2017-03-20] MEDS: POTASSIUM CHLORIDE 10 MEQ SR TABLET PO SCH ×2 (08:19→20:31)
[2017-03-20] MEDS: METOPROLOL TARTRATE 100 MG TAB PO SCH ×2 (08:19→20:31)
[2017-03-20] MEDS: DOCUSATE SODIUM 100 MG CAP PO SCH ×2 (08:19→20:29)
[2017-03-20] MEDS: ASPIRIN 81 MG ENTERIC TAB PO SCH (08:19)
[2017-03-20] MEDS: LIDOCAINE 5% (LIDODERM) PATCH TD SCH (08:20)
--- NOTE | 2017-03-20 11:16 | IPNPDOC ---
Subjective Date Seen The patient was seen on 03/20/17. Subjective Chief Complaint/HPI The patient is a 71-year-old male admitted with a reason for visit of Intractable Back Pain. Events since last encounter Patient reports the back pain feels about the same as yesterday. No real changes. Still rating down from the low back into his left heel. Says he is able to roll around more in the bed. Was able to sit up on the edge of the bed but patient experiences increase in pain when doing so. General: Denies: Chills Constitutional: Denies: Chills, Fever Eyes: Denies: Pain, Vision change ENT: Denies: Head Aches Skin: Denies: Rash, Lesions Pulmonary: Reports: Dyspnea (patient is on nasal cannula. 1 L.), Denies: Cough Cardiovascular: Denies: Chest Pain, Palpitations Gastrointestinal: Denies: Nausea, Vomiting Genitourinary: Denies: Dysuria, Frequency Hematologic: Denies: Bruising, Bleeding Excessively Musculoskeletal: Reports: Back Pain (low back pain on the left radiating down into the heel. Patient relates that about the same as the day before.) Neurological: Denies: Change in speech, Confusion Objective Physical Examination General Exam: Positive: Alert, Cooperative, No Acute Distress Eye Exam: Positive: PERRLA, EOMI ENT Exam: Positive: Atraumatic, Mucous membr. moist/pink, Pharynx Normal Neck Exam: Positive: Supple, Negative: JVD, thyromegaly Chest Exam: Positive: Clear to auscultation, Normal air movement Heart Exam: Positive: Rate Normal, Murmurs (systolic murmur 2 out of 6 left sternal border.) Abdomen Exam: Positive: Normal bowel sounds, Negative: Tenderness, Mass Extremity Exam: Positive: Normal pulses (radial pulses 2 out of 4 bilaterally. ), Negative: Clubbing, Cyanosis, Edema Skin Exam: Positive: Nl turgor and temperature, Negative: Rash, Breakdown Neuro Exam: Positive: Normal Speech Psych Exam: Positive: Mood NL, Oriented x 3 Assessment /Plan Assessment Murmur Patient has had a systolic murmur on exam. Patient has seen a specimen technician in [facility] in the past. Order placed to retrieve old records such as Echos, EKGs, progress notes, problem lists and medications. Also ordering ECHO while patient is admitted. Checking that are no changes since previous ECHO in case surgery is considered during this admission. Problems (1) Intractable back pain Problem Text: Patient has received multiple doses of pain medication. Patient is currently on Percocet 1 tab every 4 hours when necessary, morphine every 4 hours 2 mg IV when necessary, Valium 5 mg every 8 hours when necessary, gabapentin 300 mg 3 times a day. Patient also is receiving Zofran when necessary 's every 6 hours. Patient still had some pain on exam. Patient had full muscle strength bilaterally. Patient had an MRI of his lumbar spine on 03/20. MRI on 03/19/2017 showed 1. Minimal central canal stenosis at the L1-2 and L2-3 levels secondary to disc bulge, ligamentous and facet hypertrophy. The canal stenosis at the L2-3 level is a new finding. 2. Moderate central canal stenosis at the L3-4 level secondary to disc bulge, ligamentous and facet hypertrophy. There has been progression of the canal stenosis. 3. Severe central canal stenosis at the L4-5 level secondary to disc bulge, ligamentous and facet hypertrophy. The previously noted right synovial cyst is not seen. 4. Severe loss of height of the L5-S1 intervertebral disc. Posterior and lateral osteophytes are present. There is no thecal sac compression. There is compression of the L5 nerves in the neural foramina. A right laminectomy defect is present. The left L5 nerve compression is a new finding. 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 This was visualized on chest radiograph on 03/18/17. Patient has been seen by orthopedist previously. Consulting Dr. Rubi while patient is in the hospital for assistance in management of his low back pain. Appreciate Dr. Rubi's assistance with the patient at this time. (2) Left-sided low back pain with sciatica Status: Acute Problem Text: Patient still complaining of pain going down his leg. MRI performed. (3) Control of atrial fibrillation with pacemaker Problem Text: Patient is in sinus rhythm at this time. Continue metoprolol and Xarelto. (4) Diabetes mellitus type 2 in obese Problem Text: Continue to hold patient's metformin. Will use sliding scale insulin. (5) Hypertension Problem Text: Continue patient's home beta winston. Monitor as needed. (6) CAD (coronary artery disease) Problem Text: Patient's history of SC. Continue patient's aspirin, statin, beta winston. Monitor as needed. Patient sees a Resource Program Teacher at the [facility] in [place]. Patient will need to follow up outpatient. Plan/VTE VTE Prophylaxis Ordered?: Yes (home Xarelto) VS, I&O, 24H, Fishbone Vital Signs/I&O Vital Signs Date Time Temp Pulse Resp B/P (MAP) Pulse Ox O2 Delivery O2 Flow Rate FiO2 03/20/17 11:00 77 96 Nasal Cannula 1.0 03/20/17 10:32 18 03/20/17 08:19 149/81 03/20/17 06:00 98.1 I&O- Last 24 Hours up to 6 AM 03/20/17 06:00 Intake Total 840 ml Output Total 925 ml Balance -85 ml Laboratory Data 24H LABS Laboratory Tests 2 03/19/17 11:39: Bedside Glucose (Misc Panel) 151H 03/19/17 14:38: Urine Appearance CLEAR, Urine Color YELLOW, Urine pH 5.0, Urine Specific Mode 1.030, Urine Protein 2+H, Urine Glucose (UA) NEGATIVE, Urine Ketones NEGATIVE, Urine Urobilinogen 0.2, Urine Bilirubin NEGATIVE, Urine Leukocyte Esterase NEGATIVE, Urine Blood NEGATIVE, Urine Nitrite NEGATIVE, Urine WBC (Auto ) 4H, Urine RBC (Auto) 5H, Urine Hyaline Casts (Auto) 0, Urine Bacteria (Auto) NEGATIVE, Urine Squamous Epithelial Cells 0, Urine Mucus (Auto) SMALL, Urine Sperm (Auto) 03/19/17 16:16: Bedside Glucose (Misc Panel) 127H 03/19/17 20:28: Bedside Glucose (Misc Panel) 186H 03/20/17 06:57: White Blood Count 13.2H, Red Blood Count 4.17L, Hemoglobin 11.5L, Hematocrit 36.9L, Mean Corpuscular Volume 88.4, Mean Corpuscular Hemoglobin 27.6, Mean Corpuscular Hemoglobin Concent 31.2L, Red Cell Distribution Width 14.5, Platelet Count 268, Neutrophils (%) (Auto) 68.5H, Lymphocytes (%) (Auto) 17.8L, Monocytes (%) (Auto) 7.2H, Eosinophils (%) (Auto) 4.1H, Basophils (%) (Auto) 0.6 , Neutrophils # (Auto) 9.0H, Lymphocytes # (Auto) 2.6, Monocytes # (Auto) 0.9H, Eosinophils # (Auto) 0.5, Basophils # (Auto) 0.1, Large Unclassified Cells % 1.8 , Large Unclassified Cells # 0.2, Anion Gap 3L, Glomerular Filtration Rate > 60.0, Blood Urea Nitrogen 22H, Creatinine 0.94, Sodium Level 143, Potassium Level 4.3, Chloride Level 108H, Carbon Dioxide Level 32, Calcium Level 8.7L, Magnesium Level 1.9 CBC/BMP Laboratory Tests 03/20/17 06:57 Red Blood Count 4.17 L, Mean Corpuscular Volume 88.4, Mean Corpuscular Hemoglobin 27.6, Mean Corpuscular Hemoglobin Concent 31.2 L, Red Cell Distribution Width 14.5, Neutrophils (%) (Auto) 68.5 H, Lymphocytes (%) (Auto) 17.8 L, Monocytes (%) (Auto) 7.2 H, Eosinophils (%) (Auto) 4.1 H, Basophils (%) (Auto) 0.6, Neutrophils # (Auto) 9.0 H, Lymphocytes # (Auto) 2.6, Monocytes # ( Auto) 0.9 H, Eosinophils # (Auto) 0.5, Basophils # (Auto) 0.1, Calcium Level 8.7 L Microbiology Microbiology 03/17/17 Blood Culture - Preliminary, Resulted No Growth after 48 hours. All Specime... 03/17/17 Blood Culture - Preliminary, Resulted No Growth after 48 hours. All Specime... 03/17/17 Urine Culture - Final, Complete GME ATTESTATION GME ATTESTATION My preceptor for this patient encounter was Dr. Zuleta and he was physically present in the building during the encounter and was fully available. As needed , all aspects of the patient interview, examination, medical decision making process, and medical care plan development were reviewed and approved by the preceptor. Preceptor is aware and concurs with the plan as stated in the body of this note and will attest to such by his/her cosignature. VIOLET CHAVES DO Mar 20, 2017 11:16
[2017-03-20] MEDS: CYCLOBENZAPRINE 10 MG TAB PO PRN (12:34)
[2017-03-20 14:00] VITALS: BP 148/65
[2017-03-20] MEDS: diazePAM 5 MG TAB PO PRN (17:37)
--- NOTE | 2017-03-20 18:46 | CR ---
DATE OF CONSULTATION: 03/20/2017 REASON FOR CONSULTATION: Asked to see this patient to evaluate back discomfort radiating down the left lower extremity. HISTORY: Mr. Mccabe has had a long history of back problems, actually going back a few years that have been getting worse he thinks over the course the past 6 months. He has been having progressively worsening issues with ambulation. He sees Dr. Toth. He has had epidurals in the past, but has not had epidurals recently that he can recall. He indicates that he also had low back surgery for a disk in his back with Dr. Gilliam years ago. That was in the 1970s. Indicates that he was referred to [place] for evaluation of his back because of lumbar spinal stenosis (back issues) and they told him that could not have surgery because he was high risk because of his smoking, his obesity, his bad valve in his heart as well as his diabetes. He has been admitted to apparently the hospitalist service. He says he has not had an epidural while here. He says that he has not seen someone from pain management yet. He has been placed on oxygen here. He says he has not been out of bed with therapy. Says it hurts to sit or stand for prolonged periods of time, but it does not hurt to lay down. Recent MRI interpreted Dr. Luis as canal stenosis at 4-5, canal stenosis at 3-4, loss of height L5-S1 and suggestion of "clumping" of the cauda equina at L5-S1 that is consistent with arachnoiditis, a chronic condition. LABS: Laboratory studies here. He has had an elevated white count today 13.2. Microbiology here: Urine culture: No growth. Blood culture: No growth. Percent neutrophils 68.5. Did have significant leukocyte esterase on urinalysis 03/17/2017. ALLERGIES: NO KNOWN DRUG ALLERGIES. MEDICAL HISTORY: Atrial fibrillation, coronary artery disease, diabetes mellitus type 2, high blood pressure, valvular heart disease. [facility] He is unaware of what valve problem he has in his heart. PAST SURGICAL HISTORY: Including cardiac ablation, back surgery, knee surgery, cardiac stents. History recorded in the chart of pacemaker placement. FAMILY HISTORY: Diabetes type 2, coronary artery disease. SOCIAL HISTORY: While he used to smoke a pack a day, he has been trying to cut down and smokes about a half a pack a day. He does not currently drink. REVIEW OF SYSTEMS: General: He is not complaining of fever or chills. He is not complaining of visual changes. He is not complaining of sore throat. He is not complaining of chest pain. He is not complaining of shortness of breath, although he is on oxygen. He is not complaining of stomach trouble. He is not complaining of skin trouble. He is not complaining of neurologic changes. He is not complaining of depression or suicidal ideation. He does report diabetes. MRI as above. MEDICATIONS AT HOME: Include aspirin, atorvastatin. Had a history of being on gabapentin but he said he did not take it any more. Metformin, metoprolol, omeprazole,, potassium, rivaroxaban/Xarelto, terazosin and diazepam as needed for spasms. CLINICAL EXAMINATION: He is alert, oriented and cooperative. Seems to be able to talk in complete sentences, although he is wearing oxygen at about 3 liters right now. He is not short of breath. His abdomen is very large, not distended. It is soft. Extremities appreciates light touch. Motor seems to be intact. Extremities are warm and not edematous today. Back: Tender. Grossly no deformity or swelling or fluctuance around the back. Old incision on the back about 12 cm long over the lumbar spine. IMPRESSION: Chronic back pain. Lumbar spinal stenosis. Dural scarring. RECOMMENDATIONS: From an operative perspective, I agree with what the providers told him in [place]. In my opinion he is an extremely high risk for any type of spinal surgical procedure and I would not recommend that avenue of treatment. Even if the patient were to quit smoking, which would certainly be mandatory before any consideration of surgery, he would be high risk. I would recommend consultation and evaluation by pain management at [facility] and further considerations if appropriate for epidurals as long as an infection is ruled out as I do see he did have an elevated white count that is not explained. In the meantime, the primary team may work with the pain service to optimize dosing of gabapentin and other medications which could for this gentleman be helpful. Physical therapy. Physical therapy should see the patient and try to mobilize the patient and work on that on a daily basis. For further details please refer to medical record. Thank you for this interesting consultation.
[2017-03-20] MEDS: ATORVASTATIN 20 MG TAB PO SCH (20:30)
[2017-03-20] MEDS: TERAZOSIN 1 MG CAP PO SCH (20:30)
[2017-03-20] MEDS: RIVAROXABAN 20 MG TAB (XARELTO) PO SCH (20:31)
[2017-03-20] MEDS: **NOTE PATIENT COMMENT** MISC XX SCH (20:32)
[2017-03-20 22:00] VITALS: BP 148/66
[2017-03-21] MEDS: KETOROLAC 30 MG/ML VIAL (J1885) IV SCH ×4 (01:06→20:23)
[2017-03-21] MEDS: PERCOCET 5MG/325MG TAB PO PRN ×4 (02:11→22:10)
[2017-03-21 06:00] VITALS: BP 139/77
[2017-03-21 07:42] LABS: BASO # 0.1 K/mm3 (0.0-0.2); BASO % 0.6 % (0.0-1.0); EOS # 0.4 K/mm3 (0.0-0.50); EOS % 4.2 % (0.0-3.0); LARGE UNSTAINED CELL # 0.2 K/mm3 (0.0-0.4); LARGE UNSTAINED CELL % 1.8 % (0.0-4.0); LYMPH # 2.3 K/mm3 (1.5-4.5); LYMPH % 19.7 % (24.0-44.0); MEAN CORPUSCULAR HGB CONC 31.9 g/dl (32.0-36.5); MEAN CORPUSCULAR VOLUME 87.6 fl (80.0-96.0); MONO # 0.7 K/mm3 (0.0-0.8); MONO % 6.2 % (0.0-5.0); NEUTROPHILS # 7.2 K/mm3 (1.8-7.7); NEUTROPHILS % 67.5 % (36.0-66.0); PLATELET COUNT, AUTOMATED 256 k/mm3 (150-450); RED CELL DISTRIBUTION WIDTH 14.5 % (11.5-14.5); WHITE BLOOD COUNT 10.6 K/mm3 (4.0-10.0)
[2017-03-21 07:49] LABS: ANION GAP 4 MEQ/L (8-16); BLOOD UREA NITROGEN 32 MG/DL (7-18); CALCIUM LEVEL 8.6 MG/DL (8.8-10.2); CARBON DIOXIDE LEVEL 30 MEQ/L (21-32); CHLORIDE LEVEL 109 MEQ/L (98-107); CREATININE FOR GFR 1.15 MG/DL (0.70-1.30); GLOMERULAR FILTRATION RATE > 60.0 (>49); GLUCOSE, FASTING 123 MG/DL (80-110); MAGNESIUM LEVEL 2.3 MG/DL (1.8-2.4); POTASSIUM SERUM 4.5 MEQ/L (3.5-5.1); SODIUM LEVEL 143 MEQ/L (136-145)
[2017-03-21] MEDS: POTASSIUM CHLORIDE 10 MEQ SR TABLET PO SCH ×2 (08:09→20:23)
[2017-03-21] MEDS: GABAPENTIN 300 MG CAP PO SCH ×3 (08:09→20:23)
[2017-03-21] MEDS: METOPROLOL TARTRATE 100 MG TAB PO SCH ×2 (08:10→20:24)
[2017-03-21] MEDS: OMEPRAZOLE 20 MG CAP PO SCH (08:10)
[2017-03-21] MEDS: ASPIRIN 81 MG ENTERIC TAB PO SCH (08:10)
[2017-03-21] MEDS: DOCUSATE SODIUM 100 MG CAP PO SCH ×2 (08:10→20:23)
[2017-03-21] MEDS: HumaLOG INSULIN (NovoLOG) PER UNIT SC SCH ×4 (08:11→20:24)
[2017-03-21] MEDS: LIDOCAINE 5% (LIDODERM) PATCH TD SCH (08:11)
--- NOTE | 2017-03-21 10:53 | IPNPDOC ---
Subjective Date Seen The patient was seen on 03/21/17. Subjective Chief Complaint/HPI The patient is a 71-year-old male admitted with a reason for visit of Intractable Back Pain. Events since last encounter She reports still having back pain. Pain is has been laying down. He is most same as it did yesterday. Patient was unable to get up and ambulate with PT due to the pain. Patient reports being seen by Dr. Rubi. Dr. Rubi told the patient is nonoperable candidate at this time. Total abdominal pain nausea or vomiting. No headaches. Constitutional: Denies: Chills, Fever Eyes: Denies: Pain, Vision change ENT: Denies: Head Aches Skin: Denies: Rash Pulmonary: Reports: Dyspnea Cardiovascular: Denies: Chest Pain, Palpitations Gastrointestinal: Denies: Nausea, Vomiting Genitourinary: Denies: Dysuria, Frequency Hematologic: Denies: Bruising, Bleeding Excessively Musculoskeletal: Reports: Back Pain Neurological: Denies: Numbness, Change in speech, Confusion Psych: Reports: Mood Normal Objective Physical Examination General Exam: Positive: Alert, Cooperative, No Acute Distress Eye Exam: Positive: PERRLA, EOMI ENT Exam: Positive: Atraumatic, Mucous membr. moist/pink, Pharynx Normal Neck Exam: Positive: Supple, Negative: JVD, thyromegaly Chest Exam: Positive: Clear to auscultation, Normal air movement Heart Exam: Positive: Rate Normal, Murmurs (systolic murmur 2 out of 6 left sternal border.) Abdomen Exam: Positive: Normal bowel sounds, Negative: Tenderness, Mass Extremity Exam: Positive: Normal pulses (radial pulses 2 out of 4 bilaterally. ), Other (patient's muscle strength may be restricted due to pain. L1-L3 bilaterally for F5. L4-L5 and S1 5 out of 5.), Negative: Clubbing, Cyanosis, Edema Skin Exam: Positive: Nl turgor and temperature, Negative: Rash, Breakdown Neuro Exam: Positive: Normal Speech Psych Exam: Positive: Mood NL Assessment /Plan Assessment Murmur Patient has had a systolic murmur on exam. Patient has had a history of this. Patient has seen a pmo business analyst in [facility] in the past. Order placed to retrieve old records such as Echos, EKGs, progress notes, problem lists and medications. Also ordering ECHO while patient is admitted. Checking that are no changes since previous ECHO in case surgery is considered during this admission. Dysuria Repeat UA on 03/19/17 showed no leukocyte esterase or bacteria as previous UA had. Urine Culture negative. Problems (1) Intractable back pain Problem Text: Patient is currently on Toradol IV 15 mg every 6 and Percocet 1- 2 tabs every 4 hours for mild to moderate pain. Patient had an MRI of his lumbar spine on 03/20. MRI on 03/19/2017 showed 1. Minimal central canal stenosis at the L1-2 and L2-3 levels secondary to disc bulge, ligamentous and facet hypertrophy. The canal stenosis at the L2-3 level is a new finding. 2. Moderate central canal stenosis at the L3-4 level secondary to disc bulge, ligamentous and facet hypertrophy. There has been progression of the canal stenosis. 3. Severe central canal stenosis at the L4-5 level secondary to disc bulge, ligamentous and facet hypertrophy. The previously noted right synovial cyst is not seen. 4. Severe loss of height of the L5-S1 intervertebral disc. Posterior and lateral osteophytes are present. There is no thecal sac compression. There is compression of the L5 nerves in the neural foramina. A right laminectomy defect is present. The left L5 nerve compression is a new finding. 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 This was visualized on chest radiograph on 03/18/17. Patient has been seen by orthopedist previously. Consulted Dr. Rubi while patient is in the hospital for assistance in management of his low back pain. Per Dr. Rubi's consult note patient is not a surgical candidate at this time. Smoking sensation would be mandatory requirements and patient is a high risk. Recommendation to consult and evaluation by pain management. Appreciate Dr. Rubi's assistance with the patient at this time. Consult was placed for pain management. Patient has seen pain management in the past. Appreciate their assistance in management of the patient at this time. (2) Left-sided low back pain with sciatica Status: Acute Problem Text: Patient still complaining of pain going down his leg. MRI performed. (3) Control of atrial fibrillation with pacemaker Problem Text: Patient is in sinus rhythm at this time. Continue metoprolol and Xarelto. (4) Diabetes mellitus type 2 in obese Problem Text: Continue to hold patient's metformin. Will use sliding scale insulin. (5) Hypertension Problem Text: Continue patient's home beta winston. Monitor as needed. (6) CAD (coronary artery disease) Problem Text: Patient's history of AR. Continue patient's aspirin, statin, beta winston. Monitor as needed. Patient sees a Tablet Tester at the [facility] in [place]. Patient will need to follow up outpatient. Plan/VTE VTE Prophylaxis Ordered?: Yes (home Xarelto) VS, I&O, 24H, Fishbone Vital Signs/I&O Vital Signs Date Time Temp Pulse Resp B/P (MAP) Pulse Ox O2 Delivery O2 Flow Rate FiO2 03/21/17 10:34 96 Nasal Cannula 1.0 03/21/17 08:10 60 139/77 03/21/17 06:00 98.3 20 I&O- Last 24 Hours up to 6 AM 03/21/17 06:00 Intake Total 1200 ml Output Total 125 ml Balance 1075 ml Laboratory Data 24H LABS Laboratory Tests 2 03/20/17 12:17: Bedside Glucose (Misc Panel) 115 03/20/17 16:41: Bedside Glucose (Misc Panel) 134H 03/20/17 20:24: Bedside Glucose (Misc Panel) 122H 03/21/17 06:50: White Blood Count 10.6H, Red Blood Count 3.90L, Hemoglobin 10.9L, Hematocrit 34.2L, Mean Corpuscular Volume 87.6, Mean Corpuscular Hemoglobin 28.0, Mean Corpuscular Hemoglobin Concent 31.9L, Red Cell Distribution Width 14.5, Platelet Count 256, Neutrophils (%) (Auto) 67.5H, Lymphocytes (%) (Auto) 19.7L, Monocytes (%) (Auto) 6.2H, Eosinophils (%) (Auto) 4.2H, Basophils (%) (Auto) 0.6 , Neutrophils # (Auto) 7.2, Lymphocytes # (Auto) 2.3, Monocytes # (Auto) 0.7, Eosinophils # (Auto) 0.4, Basophils # (Auto) 0.1, Large Unclassified Cells % 1.8 , Large Unclassified Cells # 0.2, Anion Gap 4L, Glomerular Filtration Rate > 60.0, Blood Urea Nitrogen 32H, Creatinine 1.15, Sodium Level 143, Potassium Level 4.5, Chloride Level 109H, Carbon Dioxide Level 30, Calcium Level 8.6L, Magnesium Level 2.3 CBC/BMP Laboratory Tests 03/21/17 06:50 Red Blood Count 3.90 L, Mean Corpuscular Volume 87.6, Mean Corpuscular Hemoglobin 28.0, Mean Corpuscular Hemoglobin Concent 31.9 L, Red Cell Distribution Width 14.5, Neutrophils (%) (Auto) 67.5 H, Lymphocytes (%) (Auto) 19.7 L, Monocytes (%) (Auto) 6.2 H, Eosinophils (%) (Auto) 4.2 H, Basophils (%) (Auto) 0.6, Neutrophils # (Auto) 7.2, Lymphocytes # (Auto) 2.3, Monocytes # ( Auto) 0.7, Eosinophils # (Auto) 0.4, Basophils # (Auto) 0.1, Calcium Level 8.6 L Microbiology Microbiology 03/17/17 Blood Culture - Preliminary, Resulted No Growth after 72 hours. All specime... 03/17/17 Blood Culture - Preliminary, Resulted No Growth after 72 hours. All specime... 03/17/17 Urine Culture - Final, Complete GME ATTESTATION GME ATTESTATION My preceptor for this patient encounter was Dr. Zuleta and he was physically present in the building during the encounter and was fully available. As needed , all aspects of the patient interview, examination, medical decision making process, and medical care plan development were reviewed and approved by the preceptor. Preceptor is aware and concurs with the plan as stated in the body of this note and will attest to such by his/her cosignature. VIOLET CHAVES DO Mar 21, 2017 10:52
[2017-03-21 14:00] VITALS: BP 160/98
[2017-03-21] MEDS: diazePAM 5 MG TAB PO PRN (14:42)
--- NOTE | 2017-03-21 18:06 | CR.PDOC ---
[facility] Pain Clinic Consultation General Date of Consultation: 03/21/17 Consultation Report For: VIOLET CHAVES DO Chief Complaint The patient is a 71-year-old male admitted with a reason for visit of Intractable Back Pain. Pain management is asked to evaluate for further options to manage his pain History of Present Illness Prateek Mccabe is a 71-year-old white male who was admitted on 4 intractable low back pain. Patient was seen and evaluated. He reports he has been having pain in his low back for many years. He has been following intermittently with Dr. Lyons at [facility] orthopedics. In the past approximately 10 years ago. He did have epidural injections. Reports that this was helpful in decreasing some of his pain. Currently he reports the pain is centered over the left buttock with radiation into the left leg to the level of the knee and occasionally to the foot. He has noted a marked increase in pain over the last 6 months. He is followed usually by his primary care provider at the [facility] in [place]. He has had no recent treatment for his back pain. He states he was given some gabapentin, which she reports he was taking 6 tablets at a time. States that this was helpful. He reports recently the pain has become so bad he has not been able to get up and walk. Dates that if he is lying still. He is fairly comfortable. Denies any pain into the right leg or along the spine. Denies any numbness or tingling into the legs or feet. Has noted severe charley horses and cramping in his left posterior thigh but states he has had no specific weakness in his legs. Reports that his pain level as he is lying in bed at this time is 0-2/10. Reports getting up and walking will increase the pain to an 8-9/10. Denies any loss of bowel or bladder control. Home Medications Scheduled Aspirin (Aspirin) 81 Mg Tab, 81 MG PO DAILY, (Reported) Atorvastatin Calcium (Atorvastatin Calcium) 80 Mg Tab, 80 MG PO QPM, (Reported) Gabapentin (Gabapentin) 300 Mg Cap, 300 MG PO TID, (Reported) Metformin Hydrochloride (Metformin HCl) 1,000 Mg Tab, 1,000 MG PO QAM, (Reported ) Metformin Hydrochloride (Metformin HCl) 500 Mg Tab, 500 MG PO BID, (Reported) TAKE AT NOON AND DINNERTIME Metoprolol Tartrate (Metoprolol Tartrate) 100 Mg Tab, 100 MG PO BID, (Reported) Omeprazole (Omeprazole) 20 Mg Cap, 20 MG PO DAILY, (Reported) Potassium Chloride (Klor-Con M20) 20 Meq Tabcr, 40 MEQ PO QAM, (Reported) Potassium Chloride (Klor-Con M20) 20 Meq Tabcr, 20 MEQ PO QPM, (Reported) Rivaroxaban (Xarelto) 20 Mg Tab, 20 MG PO QPM, (Reported) Terazosin HCl (Terazosin HCl) 1 Mg Cap, 1 MG PO QPM, (Reported) Scheduled PRN Diazepam (Diazepam) 5 Mg Tab, 5 MG PO Q8H PRN for BACK PAIN, (Reported) Allergies Coded Allergies: No Known Drug Allergy (Verified Allergy, Unknown, 05/06/14) Past Medical History Medical History Atrial fibrillation currently on Xarelto, diabetes mellitus, non-insulin- dependent, obesity. Coronary artery disease, hypertension. Chart also indicates she has a pacemaker and has had coronary artery stents placed. Family History Significant Family History: Other (noncontributory) Social History Social History Smokes less than 1 pack cigarettes per day. History of heavy alcohol use but none in the last 6-7 years. Denies illicit substance use. Review of Systems Subjective Constitutional: Reports: fatigue, Denies: unexplained weight loss HEENT: Denies: head aches, vision problems, hearing problems Skin: Denies: lesions, rash, breakdown Pulmonary: Reports: cough (denies), shortness of breath (on exertion) Cardiovascular: Reports: irregular heart rate (has history of atrial fibrillation), Denies: chest pain, edema, palpitations Gastrointestinal: Reports: other (history of loose bowel movements. Denies GERD symptoms. Denies loss of bowel control) Genitourinary: Reports: other (denies difficulty with starting urinary stream, unless lying in bed), Denies: hematuria Endocrine: Reports: Diabetes mellitus Musculoskeletal: Reports: leg pain (left leg, usually to the knee level of the knee, occasionally to the foot), muscle pain, spasms (into the left posterior thigh) Neurological: Reports: numbness, pre-existing deficit, Denies: headache, seizures, tremors, weakness, migraines Physical Examination Physical Examination Vital Signs/I&O Vital Signs Date Time Temp Pulse Resp B/P (MAP) Pulse Ox O2 Delivery O2 Flow Rate FiO2 03/21/17 17:08 18 03/21/17 14:00 97.4 56 160/98 (118) 95 Nasal Cannula 1.0 I&O- Last 24 Hours up to 6 AM 03/21/17 06:00 Intake Total 1200 ml Output Total 125 ml Balance 1075 ml General Exam: Positive: alert, attentive, talkative, no acute distress, oriented times three ENT EXAM: Positive: normocephalic Neck Exam: Negative: Lymphadenopathy, Thyromegaly Chest Exam: Positive: Clear to auscultation (no wheezes, rales or rhonchi) Heart Exam: Positive: Regular rate and rhythm, Normal S1, S2, Negative: Murmurs, Rubs Abdominal Exam: Positive: Normal bowel sounds, Soft Extremity Exam: Negative: Edema Skin Exam: Positive: Warm, Dry, Negative: Rashes, Lesions Neuro Exam: Positive: Normal sensation (in the lower extremities) Inspection of spine Well-healed surgical incision identified over lumbar spinous processes. No tenderness with palpation over lumbar spinous processes or across the lumbar facets. Few trigger points and tight fibrous bands are identified. Exquisite tenderness noted with palpation over the left sacroiliac joint. Trigger points and tight fibrous bands identified into the left buttock and over the left piriformis. Musculoskeletal Muscle strength 5 over 5 in the bilateral upper extremities and right lower extremity 5 minus over 5 distally and proximally in the left lower extremity. No weakness with plantar flexion or extension. Straight leg raise positive on for pain in the buttock and some in the low back with at 20. Laboratory Data CBC/BMP Laboratory Tests 03/21/17 06:50 Red Blood Count 3.90 L, Mean Corpuscular Volume 87.6, Mean Corpuscular Hemoglobin 28.0, Mean Corpuscular Hemoglobin Concent 31.9 L, Red Cell Distribution Width 14.5, Neutrophils (%) (Auto) 67.5 H, Lymphocytes (%) (Auto) 19.7 L, Monocytes (%) (Auto) 6.2 H, Eosinophils (%) (Auto) 4.2 H, Basophils (%) (Auto) 0.6, Neutrophils # (Auto) 7.2, Lymphocytes # (Auto) 2.3, Monocytes # ( Auto) 0.7, Eosinophils # (Auto) 0.4, Basophils # (Auto) 0.1, Calcium Level 8.6 L FSBS Laboratory Tests Test 03/20/17 20:24 03/21/17 11:32 03/21/17 16:44 Range/Units Bedside Glucose (Misc Panel) 122 163 168 80-115 MG/DL Microbiology Microbiology 03/17/17 Blood Culture - Preliminary, Resulted No Growth after 72 hours. All specime... 03/17/17 Blood Culture - Preliminary, Resulted No Growth after 72 hours. All specime... 03/17/17 Urine Culture - Final, Complete Diagnostic and Imaging Studies MRI of the lumbar spine with and without contrast was completed on 03/19/2017. This demonstrates minimal central canal stenosis at the L1-2 and L2-3 level secondary to disc bulge ligamentous and facet hypertrophy. The canal stenosis at L2-3 level as a new finding. There is moderate central canal stenosis at L3- L4 level secondary to disc bulge ligamentous and facet hypertrophy. There is been progression of the canal stenosis. There is severe central canal stenosis at the L4-5 level secondary to disc bulge ligamentous and facet hypertrophy. The previously noted right synovial cyst is not seen. There is severe loss of height of the L5 S1 intervertebral disc. Posterior and lateral osteophytes are present. There is no thecal sac compression. There is compression of the L5 5 nerves in the neural foramina. A right laminectomy defect is present. The left L5 nerve compression is a new finding. There is also evidence of arachnoiditis with clumping of the cauda equina at the L5-S1 level. Assessment 1. Postlaminectomy pain syndromelumbar spine. 2. Left sacroiliac joint dysfunction/sacroiliitis. 3. Lumbar spinal stenosis at multiple levels. 4. 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 5. Lumbar radiculopathy. 6. Multiple medical problems including diabetes mellitus, atrial fibrillation on Xarelto, elevated white cell count of uncertain etiology, and obesity. Recommendation and Plan Case was reviewed with Dr. Vance and he did evaluate the MRI. He will be calling Dr. Luis,radiologiist. tomorrow to further review options. Patient reports he been taking large doses of gabapentin and had been noting some relief with this. Currently he is on 300 mg 3 times a day. It may be reasonable to increase this to 400 mg 3 times a day and slowly increase from there. Would have him continue with physical therapy. In particular he needs to work on balance, gait, and the correct use of a walker. Patient states he has done physical therapy in the past and has not provided much help. We did review option for interventional treatment. Ongoing Dr. Vance's discussion with Dr. Luis may look to move towards sacroiliac joint injection. Timing will depend on whether or not we will able to hold his Xaralto. We will evaluate that in the morning. Thank you Dr Chaves for allowing us to participate in the care of this most interesting patient. His multiple health issues are creating challenges. Should you have any questions we will be glad to discuss this with you at any time please contact us here at the pain center at [phone]. Destinee Willson Mar 21, 2017 18:06
[2017-03-21] MEDS: CYCLOBENZAPRINE 10 MG TAB PO PRN (18:42)
[2017-03-21] MEDS: ATORVASTATIN 20 MG TAB PO SCH (20:23)
[2017-03-21] MEDS: TERAZOSIN 1 MG CAP PO SCH (20:24)
[2017-03-21] MEDS: RIVAROXABAN 20 MG TAB (XARELTO) PO SCH (20:24)
[2017-03-21] MEDS: **NOTE PATIENT COMMENT** MISC XX SCH (20:25)
[2017-03-21 22:00] VITALS: BP 121/58
[2017-03-22] MEDS: KETOROLAC 30 MG/ML VIAL (J1885) IV SCH ×4 (01:39→19:54)
[2017-03-22] MEDS: diazePAM 5 MG TAB PO PRN ×3 (01:51→21:16)
[2017-03-22] MEDS: PERCOCET 5MG/325MG TAB PO PRN (03:17)
[2017-03-22 06:00] VITALS: BP 134/63
[2017-03-22] MEDS ORDERED: MOM 30ML SUSPENSION UDC PO PRN (07:30)
[2017-03-22 07:32] LABS: BASO # 0.1 K/mm3 (0.0-0.2); BASO % 0.6 % (0.0-1.0); EOS # 0.4 K/mm3 (0.0-0.50); EOS % 4.2 % (0.0-3.0); LARGE UNSTAINED CELL # 0.2 K/mm3 (0.0-0.4); LARGE UNSTAINED CELL % 1.4 % (0.0-4.0); LYMPH # 2.2 K/mm3 (1.5-4.5); LYMPH % 19.8 % (24.0-44.0); MEAN CORPUSCULAR HEMOGLOBIN 27.7 pg (27.0-33.0); MEAN CORPUSCULAR HGB CONC 31.4 g/dl (32.0-36.5); MEAN CORPUSCULAR VOLUME 88.3 fl (80.0-96.0); MONO # 0.6 K/mm3 (0.0-0.8); NEUTROPHILS # 6.9 K/mm3 (1.8-7.7); NEUTROPHILS % 67.9 % (36.0-66.0); PLATELET COUNT, AUTOMATED 250 k/mm3 (150-450); RED CELL DISTRIBUTION WIDTH 14.5 % (11.5-14.5); WHITE BLOOD COUNT 10.2 K/mm3 (4.0-10.0)
[2017-03-22 07:36] LABS: ANION GAP 4 MEQ/L (8-16); BLOOD UREA NITROGEN 35 MG/DL (7-18); CALCIUM LEVEL 8.5 MG/DL (8.8-10.2); CARBON DIOXIDE LEVEL 28 MEQ/L (21-32); CHLORIDE LEVEL 111 MEQ/L (98-107); GLOMERULAR FILTRATION RATE > 60.0 (>49); GLUCOSE, FASTING 138 MG/DL (80-110); MAGNESIUM LEVEL 2.1 MG/DL (1.8-2.4); SODIUM LEVEL 143 MEQ/L (136-145)
--- NOTE | 2017-03-22 07:49 | ECHO ---
DATE OF PROCEDURE: 03/21/2017 REFERRING PHYSICIAN: Ricardo Smyth MD INDICATION: Heart murmur. HEIGHT: 183 cm. WEIGHT: 103 kg. DIMENSIONS: IVS: 1.6 LV: 4.5 LVPW: 1.6 LA: 5.5 Aorta: 4.0 FINDINGS: The study is of acceptable technical quality. Left ventricle is of normal size and normal systolic function. I estimate EF around 55-60%. Moderate left ventricular hypertrophy is noted. Right ventricle appears to be normal size and systolic function. Left atrium is severely enlarged. Right atrium was poorly seen. Aortic valve is heavily sclerotic and there are definite restrictions of cusp mobility. By 2-D imaging, I assume around moderate aortic stenosis. There are prominent mitral annular calcifications, but mobility of the leaflets is preserved. Tricuspid and pulmonic valves appear normal. No pericardial effusion is noted. Inferior vena cava is dilated but collapses appropriately with respiration indicative of mildly elevated central venous pressure. Aortic root is dilated at 4.0 cm. Aortic arch and abdominal aorta were not seen. Doppler interrogation of aortic valve reveals approximately mild to moderate aortic insufficiency. There is probably moderately severe aortic stenosis. Mean gradient across the valve was 37, peak gradient 68 and calculated aortic valve area 0.5 cm2. Calculation is likely inaccurate due to error in LVOT measurement. Approximately mild mitral insufficiency is noted. There is trace tricuspid insufficiency. Calculated pulmonary artery pressure is at least in 40s which would correspond to moderate pulmonary hypertension. Trace pulmonic insufficiency is noted. Evaluation of diastolic function is inconclusive. The A-wave on mitral inflow is obscured by aortic insufficiency jet but tissue Doppler velocities of mitral annulus are very low and consequently I assume at least grade 2 diastolic dysfunction. CONCLUSIONS: 1. Study is of fair technical quality. 2. Normal LV size with moderate left ventricular hypertrophy and preserved LV systolic function. Likely grade 2 diastolic dysfunction. 3. Moderately severe aortic stenosis, [id number] aortic insufficiency. 4. Degenerative abnormalities of mitral valve resulting in mild mitral insufficiency. 5. Elevated central venous pressure. 6. At least moderate pulmonary hypertension. COMMENT: Subacute bacterial endocarditis (SBE) prophylaxis is not recommended. By 2-D imaging , the severity of aortic stenosis is not critical. CC: Sonam West MD [facility]
[2017-03-22] MEDS: POTASSIUM CHLORIDE 10 MEQ SR TABLET PO SCH ×2 (08:30→21:16)
[2017-03-22] MEDS: oxyCODONE 5MG TAB PO PRN ×3 (08:31→17:07)
[2017-03-22] MEDS: SENOKOT S TAB PO SCH ×2 (08:31→21:16)
[2017-03-22] MEDS: ASPIRIN 81 MG ENTERIC TAB PO SCH (08:31)
[2017-03-22] MEDS: METOPROLOL TARTRATE 100 MG TAB PO SCH ×2 (08:32→21:15)
[2017-03-22] MEDS: GABAPENTIN 300 MG CAP PO SCH ×3 (08:32→21:16)
[2017-03-22] MEDS: HumaLOG INSULIN (NovoLOG) PER UNIT SC SCH ×4 (08:32→21:00)
[2017-03-22] MEDS: OMEPRAZOLE 20 MG CAP PO SCH (08:32)
[2017-03-22] MEDS: LIDOCAINE 5% (LIDODERM) PATCH TD SCH (08:33)
--- NOTE | 2017-03-22 11:26 | IPNPDOC ---
Subjective Date Seen The patient was seen on 03/22/17. Subjective Chief Complaint/HPI The patient is a 71-year-old male admitted with a reason for visit of Intractable Back Pain. Events since last encounter Patient reports having constant pain. Pain got worse last night. Had trouble sleeping. Patient still has continuous pain down his left leg. Was not able to do much walking or standing yesterday. Was able to walk to the bathroom back and this caused severe pain. Pain clinic was consulted and did see patient yesterday. Patient has not had a BM since admission. Denies any abdominal pain, nausea, vomiting. Constitutional: Denies: Chills, Fever Eyes: Denies: Vision change ENT: Denies: Head Aches, Ear Pain Skin: Denies: Rash, Lesions Pulmonary: Denies: Dyspnea, Cough Cardiovascular: Denies: Chest Pain, Palpitations Gastrointestinal: Reports: Constipation (no BM since admission.), Denies: Nausea, Vomiting, Abdominal Pain Genitourinary: Denies: Dysuria, Frequency Hematologic: Denies: Bruising, Bleeding Excessively Musculoskeletal: Reports: Back Pain (left lobe back down the left leg.) Neurological: Denies: Weakness, Change in speech, Confusion Psych: Reports: Mood Normal Objective Physical Examination General Exam: Positive: Alert, Cooperative, No Acute Distress Eye Exam: Positive: PERRLA, EOMI ENT Exam: Positive: Atraumatic, Mucous membr. moist/pink, Pharynx Normal Neck Exam: Positive: Supple, Negative: JVD, thyromegaly Chest Exam: Positive: Clear to auscultation, Normal air movement Heart Exam: Positive: Rate Normal, Murmurs (systolic murmur 2 out of 6 left sternal border.) Abdomen Exam: Positive: Normal bowel sounds, Negative: Tenderness, Mass Extremity Exam: Positive: Normal pulses (radial pulses 2 out of 4 bilaterally. ), Other (patient's muscle strength may be restricted due to pain. L1-L3 bilaterally for F5. L4-L5 and S1 5 out of 5.), Negative: Clubbing, Cyanosis, Edema Skin Exam: Positive: Nl turgor and temperature, Negative: Rash, Breakdown Neuro Exam: Positive: Normal Speech Psych Exam: Positive: Mood NL Assessment /Plan Assessment (1) Intractable back pain Problem Text: Patient is currently on Toradol IV 15 mg every 6, Oxycodone 15 mg q4hr for pain, morphine q4hr for pain. Patient also has Ativan when necessary. Patient had an MRI of his lumbar spine on 03/20. MRI on 03/19/2017 showed 1. Minimal central canal stenosis at the L1-2 and L2-3 levels secondary to disc bulge, ligamentous and facet hypertrophy. The canal stenosis at the L2-3 level is a new finding. 2. Moderate central canal stenosis at the L3-4 level secondary to disc bulge, ligamentous and facet hypertrophy. There has been progression of the canal stenosis. 3. Severe central canal stenosis at the L4-5 level secondary to disc bulge, ligamentous and facet hypertrophy. The previously noted right synovial cyst is not seen. 4. Severe loss of height of the L5-S1 intervertebral disc. Posterior and lateral osteophytes are present. There is no thecal sac compression. There is compression of the L5 nerves in the neural foramina. A right laminectomy defect is present. The left L5 nerve compression is a new finding. 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 This was visualized on chest radiograph on 03/18/17. Patient has been seen by orthopedist previously. Consulted Dr. Rubi while patient is in the hospital for assistance in management of his low back pain. Per Dr. Rubi's consult note patient is not a surgical candidate at this time. Smoking sensation would be mandatory requirements and patient is a high risk. Recommendation to consult and evaluation by pain management. Appreciate Dr. Rubi's assistance with the patient at this time. [facility] management was consulted and was seen by SHERRIE Butler. Case was also reviewed with Dr. Vance. At this time per pain management recommendations may increase patient's gabapentin, continue physical therapy, consider interventional treatment such as sacroiliac joint injections. That is the case we'll need to hold Xarelto. Continue current treatment plan at this time. Appreciate their assistance in management of the patient at this time. (2) Left-sided low back pain with sciatica Status: Acute Problem Text: Patient still complaining of pain going down his leg. MRI showed no acute changes. (3) Control of atrial fibrillation with pacemaker Problem Text: Patient is in sinus rhythm at this time. Continue metoprolol and Xarelto. (4) Diabetes mellitus type 2 in obese Problem Text: Continue to hold patient's metformin. Will use sliding scale insulin. (5) Hypertension Problem Text: Continue patient's home beta win[place]. Monitor as needed. (6) CAD (coronary artery disease) Problem Text: Patient's history of [place]. Continue patient's aspirin, statin, beta winston. Monitor as needed. Murmur Echo was performed. Awaiting results. This was in case surgery was considered. Old records were requested and will need to be reviewed. Plan/VTE VTE Prophylaxis Ordered?: Yes (home Xarelto) VS, I&O, 24H, Fishbone Vital Signs/I&O Vital Signs Date Time Temp Pulse Resp B/P (MAP) Pulse Ox O2 Delivery O2 Flow Rate FiO2 03/22/17 09:30 12 03/22/17 08:32 68 134/63 03/22/17 07:37 Room Air 03/22/17 07:35 93 03/22/17 06:00 96.8 1.0 I&O- Last 24 Hours up to 6 AM 03/22/17 06:00 Intake Total 510 ml Output Total 375 ml Balance 135 ml Laboratory Data 24H LABS Laboratory Tests 2 03/21/17 11:32: Bedside Glucose (Misc Panel) 163H 03/21/17 16:44: Bedside Glucose (Misc Panel) 168H 03/21/17 20:14: Bedside Glucose (Misc Panel) 115 03/22/17 07:04: White Blood Count 10.2H, Red Blood Count 3.99L, Hemoglobin 11.0L, Hematocrit 35.2L, Mean Corpuscular Volume 88.3, Mean Corpuscular Hemoglobin 27.7, Mean Corpuscular Hemoglobin Concent 31.4L, Red Cell Distribution Width 14.5, Platelet Count 250, Neutrophils (%) (Auto) 67.9H, Lymphocytes (%) (Auto) 19.8L, Monocytes (%) (Auto) 6.0H, Eosinophils (%) (Auto) 4.2H, Basophils (%) (Auto) 0.6 , Neutrophils # (Auto) 6.9, Lymphocytes # (Auto) 2.2, Monocytes # (Auto) 0.6, Eosinophils # (Auto) 0.4, Basophils # (Auto) 0.1, Large Unclassified Cells % 1.4 , Large Unclassified Cells # 0.2, Anion Gap 4L, Glomerular Filtration Rate > 60.0, Blood Urea Nitrogen 35H, Creatinine 1.10, Sodium Level 143, Potassium Level 5.0, Chloride Level 111H, Carbon Dioxide Level 28, Calcium Level 8.5L, Magnesium Level 2.1 CBC/BMP Laboratory Tests 03/22/17 07:04 Red Blood Count 3.99 L, Mean Corpuscular Volume 88.3, Mean Corpuscular Hemoglobin 27.7, Mean Corpuscular Hemoglobin Concent 31.4 L, Red Cell Distribution Width 14.5, Neutrophils (%) (Auto) 67.9 H, Lymphocytes (%) (Auto) 19.8 L, Monocytes (%) (Auto) 6.0 H, Eosinophils (%) (Auto) 4.2 H, Basophils (%) (Auto) 0.6, Neutrophils # (Auto) 6.9, Lymphocytes # (Auto) 2.2, Monocytes # ( Auto) 0.6, Eosinophils # (Auto) 0.4, Basophils # (Auto) 0.1, Calcium Level 8.5 L Microbiology Microbiology 03/17/17 Blood Culture - Preliminary, Resulted No Growth after 72 hours. All specime... 03/17/17 Blood Culture - Preliminary, Resulted No Growth after 72 hours. All specime... 03/17/17 Urine Culture - Final, Complete GME ATTESTATION GME ATTESTATION My preceptor for this patient encounter was Dr. Zuleta and he was physically present in the building during the encounter and was fully available. As needed , all aspects of the patient interview, examination, medical decision making process, and medical care plan development were reviewed and approved by the preceptor. Preceptor is aware and concurs with the plan as stated in the body of this note and will attest to such by his/her cosignature. VIOLET CHAVES DO Mar 22, 2017 11:26
[2017-03-22 14:00] VITALS: BP 158/68
[2017-03-22] MEDS: CYCLOBENZAPRINE 10 MG TAB PO PRN (14:44)
[2017-03-22] MEDS: MORPHINE 2 MG/ML 1ML SYRINGE IV PRN (15:21)
[2017-03-22] MEDS: **NOTE PATIENT COMMENT** MISC XX SCH (21:00)
[2017-03-22] MEDS: ATORVASTATIN 20 MG TAB PO SCH (21:15)
[2017-03-22] MEDS: TERAZOSIN 1 MG CAP PO SCH (21:16)
[2017-03-22] MEDS: RIVAROXABAN 20 MG TAB (XARELTO) PO SCH (21:17)
[2017-03-22 22:00] VITALS: BP 169/89
[2017-03-23] MEDS: KETOROLAC 30 MG/ML VIAL (J1885) IV SCH ×4 (02:55→20:32)
[2017-03-23] MEDS: oxyCODONE 5MG TAB PO PRN ×2 (04:45→11:35)
[2017-03-23 06:00] VITALS: BP 158/84
[2017-03-23 06:58] LABS: BASO % 0.6 % (0.0-1.0); EOS # 0.5 K/mm3 (0.0-0.50); EOS % 5.2 % (0.0-3.0); LARGE UNSTAINED CELL # 0.2 K/mm3 (0.0-0.4); LARGE UNSTAINED CELL % 2.3 % (0.0-4.0); LYMPH # 2.4 K/mm3 (1.5-4.5); LYMPH % 22.3 % (24.0-44.0); MEAN CORPUSCULAR HEMOGLOBIN 27.8 pg (27.0-33.0); MEAN CORPUSCULAR VOLUME 89.7 fl (80.0-96.0); MONO # 0.6 K/mm3 (0.0-0.8); MONO % 5.7 % (0.0-5.0); NEUTROPHILS # 6.1 K/mm3 (1.8-7.7); NEUTROPHILS % 63.9 % (36.0-66.0); PLATELET COUNT, AUTOMATED 246 k/mm3 (150-450); RED CELL DISTRIBUTION WIDTH 14.8 % (11.5-14.5); WHITE BLOOD COUNT 9.6 K/mm3 (4.0-10.0)
[2017-03-23] MEDS: CYCLOBENZAPRINE 10 MG TAB PO PRN (06:58)
[2017-03-23 07:05] LABS: ANION GAP 4 MEQ/L (8-16); BLOOD UREA NITROGEN 38 MG/DL (7-18); CARBON DIOXIDE LEVEL 32 MEQ/L (21-32); CHLORIDE LEVEL 108 MEQ/L (98-107); CREATININE FOR GFR 1.13 MG/DL (0.70-1.30); GLOMERULAR FILTRATION RATE > 60.0 (>49); GLUCOSE, FASTING 122 MG/DL (80-110); SODIUM LEVEL 144 MEQ/L (136-145)
[2017-03-23 07:06] LABS: POTASSIUM SERUM 5.2 MEQ/L (3.5-5.1)
[2017-03-23] MEDS: MORPHINE 2 MG/ML 1ML SYRINGE IV PRN ×3 (07:12→23:59)
[2017-03-23] MEDS: LIDOCAINE 5% (LIDODERM) PATCH TD SCH (08:35)
[2017-03-23] MEDS: GABAPENTIN 300 MG CAP PO SCH ×3 (08:36→20:31)
[2017-03-23] MEDS: HumaLOG INSULIN (NovoLOG) PER UNIT SC SCH ×4 (08:36→20:51)
[2017-03-23] MEDS: ASPIRIN 81 MG ENTERIC TAB PO SCH (08:36)
[2017-03-23] MEDS: SENOKOT S TAB PO SCH ×2 (08:36→20:33)
[2017-03-23] MEDS: OMEPRAZOLE 20 MG CAP PO SCH (08:37)
[2017-03-23] MEDS: METOPROLOL TARTRATE 100 MG TAB PO SCH ×2 (08:37→20:51)
--- NOTE | 2017-03-23 12:36 | IPNPDOC ---
Subjective Date Seen The patient was seen on 03/23/17. Subjective Chief Complaint/HPI The patient is a 71-year-old male admitted with a reason for visit of Intractable Back Pain. Events since last encounter Patient still having back pain. Pain about the same as before. No real change. Patient tolerating diet. Encouraging oral intake. Patient still has not had a BM since admission. General: Denies: Chills Constitutional: Denies: Fever Eyes: Denies: Vision change ENT: Denies: Head Aches, Ear Pain Skin: Denies: Jaundice Pulmonary: Denies: Dyspnea (Patient not on oxygen. ), Cough Cardiovascular: Denies: Chest Pain, Palpitations Gastrointestinal: Denies: Nausea, Vomiting, Abdominal Pain Genitourinary: Denies: Dysuria, Frequency Hematologic: Denies: Bruising, Bleeding Excessively Musculoskeletal: Reports: Back Pain Neurological: Reports: Weakness, Denies: Numbness, Change in speech, Confusion Psych: Reports: Mood Normal Objective Physical Examination General Exam: Positive: Alert, Cooperative, No Acute Distress Eye Exam: Positive: PERRLA, EOMI ENT Exam: Positive: Atraumatic, Mucous membr. moist/pink, Pharynx Normal Neck Exam: Positive: Supple, Negative: JVD, thyromegaly Chest Exam: Positive: Clear to auscultation, Normal air movement Heart Exam: Positive: Rate Normal, Murmurs (systolic murmur 2 out of 6 left sternal border.) Abdomen Exam: Positive: Normal bowel sounds, Negative: Tenderness, Mass Extremity Exam: Positive: Normal pulses (radial pulses 2 out of 4 bilaterally. ), Negative: Clubbing, Cyanosis, Edema Skin Exam: Positive: Nl turgor and temperature, Negative: Rash, Breakdown Neuro Exam: Positive: Normal Speech Psych Exam: Positive: Mood NL Assessment /Plan Assessment (1) Intractable back pain Problem Text: Patient is currently on Toradol IV 15 mg every 6 hours, oxycodone HCL 15 mg every 4 hours when necessary, Valium 5 mg every 8 hours when necessary, Flexeril 10 mg every 8 hour when necessary, and a Lidoderm patch daily. Patient still having some pain and discomfort with rest but increases with sitting and ambulation. 3-4/10 at rest and up to 10/10 when ambulating. Starting oxycodone CR 10 mg twice a day for better pain control. Patient had an MRI of his lumbar spine on 03/20. MRI on 03/19/2017 showed 1. Minimal central canal stenosis at the L1-2 and L2-3 levels secondary to disc bulge, ligamentous and facet hypertrophy. The canal stenosis at the L2-3 level is a new finding. 2. Moderate central canal stenosis at the L3-4 level secondary to disc bulge, ligamentous and facet hypertrophy. There has been progression of the canal stenosis. 3. Severe central canal stenosis at the L4-5 level secondary to disc bulge, ligamentous and facet hypertrophy. The previously noted right synovial cyst is not seen. 4. Severe loss of height of the L5-S1 intervertebral disc. Posterior and lateral osteophytes are present. There is no thecal sac compression. There is compression of the L5 nerves in the neural foramina. A right laminectomy defect is present. The left L5 nerve compression is a new finding. 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 This was visualized on chest radiograph on 03/18/17. Patient has been seen by orthopedist previously. Consulted Dr. Rubi while patient is in the hospital for assistance in management of his low back pain. Per Dr. Rubi's consult note patient is not a surgical candidate at this time. Smoking sensation would be mandatory requirements and patient is a high risk. Recommendation to consult and evaluation by pain management. Appreciate Dr. Rubi's assistance with the patient at this time. [facility] management was consulted and was seen by SHERRIE Butler. Case was also reviewed with Dr. Vance. At this time per pain management recommendations may increase patient's gabapentin, continue physical therapy, consider interventional treatment such as sacroiliac joint injections. If that is the case, we'll need to hold Xarelto at that time. Continue for now. Continue current treatment plan at this time. Appreciate their assistance in management of the patient at this time. Encourage ambulation and physical therapy. Appreciate their assistance with care of this patient. (2) Left-sided low back pain with sciatica Status: Acute Problem Text: Patient still complaining of pain going down his leg. MRI showed no acute changes. (3) Control of atrial fibrillation with pacemaker Problem Text: Patient is in sinus rhythm at this time. Continue metoprolol and Xarelto. (4) Diabetes mellitus type 2 in obese Problem Text: Continue to hold patient's metformin. Will use sliding scale insulin. (5) Hypertension Problem Text: Continue patient's home beta winston and terazosin. Monitor as needed. (6) CAD (coronary artery disease) Problem Text: Patient's history of [place]. Continue patient's aspirin, statin, beta winston. Monitor as needed. Murmur Echo was performed. Awaiting results. This was in case surgery was considered. Old records were requested and will need to be reviewed. Urinary difficulty Patient reports pain with urination. Having difficulty starting. Ordering repeat UA and culture. Also post void residual to make sure bladder is emptying. Patient is on 1 mg flomax daily. Cystoscopy from 2013 was normal. This was done for hematuria. No follow up with urology since. Plan/VTE VTE Prophylaxis Ordered?: Yes (home Xarelto) VS, I&O, 24H, Fishbone Vital Signs/I&O Vital Signs Date Time Temp Pulse Resp B/P (MAP) Pulse Ox O2 Delivery O2 Flow Rate FiO2 03/23/17 11:35 16 03/23/17 08:43 Room Air 03/23/17 08:37 61 158/84 03/23/17 06:00 97.7 95 1.0 I&O- Last 24 Hours up to 6 AM 03/23/17 06:00 Intake Total 1320 ml Output Total 1050 ml Balance 270 ml Laboratory Data 24H LABS Laboratory Tests 2 03/22/17 12:00: Bedside Glucose (Misc Panel) 122H 03/22/17 16:49: Bedside Glucose (Misc Panel) 128H 03/22/17 21:12: Bedside Glucose (Misc Panel) 124H 03/23/17 06:23: White Blood Count 9.6, Red Blood Count 3.99L, Hemoglobin 11.1L, Hematocrit 35.8L , Mean Corpuscular Volume 89.7, Mean Corpuscular Hemoglobin 27.8, Mean Corpuscular Hemoglobin Concent 31.0L, Red Cell Distribution Width 14.8H, Platelet Count 246, Neutrophils (%) (Auto) 63.9, Lymphocytes (%) (Auto) 22.3L, Monocytes (%) (Auto) 5.7H, Eosinophils (%) (Auto) 5.2H, Basophils (%) (Auto) 0.6 , Neutrophils # (Auto) 6.1, Lymphocytes # (Auto) 2.4, Monocytes # (Auto) 0.6, Eosinophils # (Auto) 0.5, Basophils # (Auto) 0.0, Large Unclassified Cells % 2.3 , Large Unclassified Cells # 0.2, Anion Gap 4L, Glomerular Filtration Rate > 60.0, Blood Urea Nitrogen 38H, Creatinine 1.13, Sodium Level 144, Potassium Level 5.2H, Chloride Level 108H, Carbon Dioxide Level 32, Calcium Level 9.0, Magnesium Level 2.0 CBC/BMP Laboratory Tests 03/23/17 06:23 Red Blood Count 3.99 L, Mean Corpuscular Volume 89.7, Mean Corpuscular Hemoglobin 27.8, Mean Corpuscular Hemoglobin Concent 31.0 L, Red Cell Distribution Width 14.8 H, Neutrophils (%) (Auto) 63.9, Lymphocytes (%) (Auto) 22.3 L, Monocytes (%) (Auto) 5.7 H, Eosinophils (%) (Auto) 5.2 H, Basophils (%) (Auto) 0.6, Neutrophils # (Auto) 6.1, Lymphocytes # (Auto) 2.4, Monocytes # ( Auto) 0.6, Eosinophils # (Auto) 0.5, Basophils # (Auto) 0.0, Calcium Level 9.0 Microbiology Microbiology 03/17/17 Blood Culture - Final, Complete NO GROWTH AFTER 5 DAYS 03/17/17 Blood Culture - Final, Complete NO GROWTH AFTER 5 DAYS 03/17/17 Urine Culture - Final, Complete GME ATTESTATION GME ATTESTATION My preceptor for this patient encounter was Dr. Zuleta and he was physically present in the building during the encounter and was fully available. As needed , all aspects of the patient interview, examination, medical decision making process, and medical care plan development were reviewed and approved by the preceptor. Preceptor is aware and concurs with the plan as stated in the body of this note and will attest to such by his/her cosignature. VIOLET CHAVES DO Mar 23, 2017 11:43
[2017-03-23 14:00] VITALS: BP 158/77
[2017-03-23] MEDS: oxyCODONE 10 MG CR TAB PO SCH ×2 (14:05→21:56)
[2017-03-23] MEDS: diazePAM 5 MG TAB PO PRN (16:42)
[2017-03-23] MEDS ORDERED: MOM 30ML SUSPENSION UDC PO ONE (19:00)
[2017-03-23] MEDS: ATORVASTATIN 20 MG TAB PO SCH (20:33)
[2017-03-23 20:45] VITALS: BP 168/82
[2017-03-23] MEDS: RIVAROXABAN 20 MG TAB (XARELTO) PO SCH (20:49)
[2017-03-23] MEDS: **NOTE PATIENT COMMENT** MISC XX SCH (20:52)
[2017-03-23] MEDS: TERAZOSIN 1 MG CAP PO SCH (21:57)
[2017-03-23 22:00] VITALS: BP 158/70
--- NOTE | 2017-03-23 22:00 | REPUSA ---
CLINICAL HISTORY: Fall. TECHNIQUE: Multiple axial CT images were obtained through the brain without IV contrast material. COMMENTS: There is normal configuration of sella turcica. There are no intra or extra-axial collections. There is no mass effect or midline shift. There is no evidence of hematoma formation. No hydrocephalus is p resent. The ventricles are symmetrical. No abnormal calcifications are present. There is diffuse age-appropriate cerebellar and cerebral atrophy with proportionally dilated ventricl es and cortical sulci. There are bilateral periventricular and subcortical white matter hypolucencies compatible with mild c hronic microvascular disease. Otherwise, no significant focal abnormalities are seen either in the posterior fossa or supratentoria l compartment. IMPRESSION: 1. Age-appropriate cerebellar and cerebral atrophy. 2. Mild chronic microvascular disease. 3. No evidence of acute intracranial pathology. Thank you for your kind referral of this patient.
[2017-03-24] MEDS: KETOROLAC 30 MG/ML VIAL (J1885) IV SCH ×4 (02:18→21:06)
[2017-03-24 06:00] VITALS: BP 149/73
[2017-03-24 06:50] LABS: BASO # 0.1 K/mm3 (0.0-0.2); BASO % 0.6 % (0.0-1.0); EOS # 0.4 K/mm3 (0.0-0.50); EOS % 4.6 % (0.0-3.0); LARGE UNSTAINED CELL # 0.2 K/mm3 (0.0-0.4); LARGE UNSTAINED CELL % 1.9 % (0.0-4.0); LYMPH # 2.2 K/mm3 (1.5-4.5); LYMPH % 21.1 % (24.0-44.0); MEAN CORPUSCULAR HEMOGLOBIN 28.4 pg (27.0-33.0); MEAN CORPUSCULAR HGB CONC 32.5 g/dl (32.0-36.5); MEAN CORPUSCULAR VOLUME 87.5 fl (80.0-96.0); MONO # 0.7 K/mm3 (0.0-0.8); MONO % 7.1 % (0.0-5.0); NEUTROPHILS # 6.3 K/mm3 (1.8-7.7); NEUTROPHILS % 64.6 % (36.0-66.0); PLATELET COUNT, AUTOMATED 236 k/mm3 (150-450); RED CELL DISTRIBUTION WIDTH 14.7 % (11.5-14.5); WHITE BLOOD COUNT 9.7 K/mm3 (4.0-10.0)
[2017-03-24 06:53] LABS: ANION GAP 5 MEQ/L (8-16); BLOOD UREA NITROGEN 36 MG/DL (7-18); CALCIUM LEVEL 8.6 MG/DL (8.8-10.2); CARBON DIOXIDE LEVEL 30 MEQ/L (21-32); CHLORIDE LEVEL 109 MEQ/L (98-107); CREATININE FOR GFR 1.05 MG/DL (0.70-1.30); GLOMERULAR FILTRATION RATE > 60.0 (>49); GLUCOSE, FASTING 125 MG/DL (80-110); MAGNESIUM LEVEL 2.4 MG/DL (1.8-2.4); POTASSIUM SERUM 4.6 MEQ/L (3.5-5.1); SODIUM LEVEL 144 MEQ/L (136-145)
[2017-03-24] MEDS: HumaLOG INSULIN (NovoLOG) PER UNIT SC SCH ×4 (08:29→20:54)
[2017-03-24] MEDS: LIDOCAINE 5% (LIDODERM) PATCH TD SCH (08:30)
[2017-03-24] MEDS: METOPROLOL TARTRATE 100 MG TAB PO SCH ×2 (08:31→21:08)
[2017-03-24] MEDS: oxyCODONE 10 MG CR TAB PO SCH (08:31)
[2017-03-24] MEDS: GABAPENTIN 400 MG CAP PO SCH ×3 (08:31→21:07)
[2017-03-24] MEDS: ASPIRIN 81 MG ENTERIC TAB PO SCH (08:31)
[2017-03-24] MEDS: OMEPRAZOLE 20 MG CAP PO SCH (08:31)
[2017-03-24] MEDS: CYCLOBENZAPRINE 10 MG TAB PO PRN ×2 (08:31→18:55)
[2017-03-24] MEDS: SENOKOT S TAB PO SCH ×2 (08:31→21:08)
--- NOTE | 2017-03-24 09:40 | IPNPDOC ---
Subjective Date Seen The patient was seen on 03/24/17. Subjective Chief Complaint/HPI The patient is a 71-year-old male admitted with a reason for visit of Intractable Back Pain. Events since last encounter Mechanical fall last evening while in bathroom, tripping event, no aura, focal weakness, syncope, palpitations, chest pain, had imaging, no change in the nature of his pain this am, tolerating diet, has not yet had bm Constitutional: Denies: Chills, Fever Pulmonary: Denies: Dyspnea, Cough Cardiovascular: Denies: Chest Pain, Palpitations Gastrointestinal: Denies: Nausea, Vomiting, Abdominal Pain Objective Physical Examination General Exam: Positive: Alert, Cooperative, No Acute Distress Eye Exam: Negative: Sclera icteric ENT Exam: Positive: Mucous membr. moist/pink Chest Exam: Positive: Clear to auscultation, Normal air movement, Negative: Rales, Rhonchi, Wheezing Heart Exam: Positive: Rate Normal, Murmurs (systolic murmur 4 out of 6 left sternal border.) Abdomen Exam: Positive: Normal bowel sounds, Soft, Negative: Tenderness, Mass Extremity Exam: Positive: Clubbing, Normal pulses (radial pulses 2 out of 4 bilaterally. ) Skin Exam: Positive: Rash Neuro Exam: Positive: Normal Speech Psych Exam: Positive: Mental status NL Assessment /Plan Problems (1) Intractable back pain Problem Text: Patient is currently on * Toradol day 4 of 5 (03/24/17) * Oxycontin bid * Oxy IR q4 prn * IV Morphine PRN * Flexeril * Valium * Lidoderm Patient had an MRI of his lumbar spine on 03/20. MRI on 03/19/2017 showed 1. Minimal central canal stenosis at the L1-2 and L2-3 levels secondary to disc bulge, ligamentous and facet hypertrophy. The canal stenosis at the L2-3 level is a new finding. 2. Moderate central canal stenosis at the L3-4 level secondary to disc bulge, ligamentous and facet hypertrophy. There has been progression of the canal stenosis. 3. Severe central canal stenosis at the L4-5 level secondary to disc bulge, ligamentous and facet hypertrophy. The previously noted right synovial cyst is not seen. 4. Severe loss of height of the L5-S1 intervertebral disc. Posterior and lateral osteophytes are present. There is no thecal sac compression. There is compression of the L5 nerves in the neural foramina. A right laminectomy defect is present. The left L5 nerve compression is a new finding. 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 This was visualized on chest radiograph on 03/18/17. Patient has been seen by orthopedist previously. Consulted Dr. Rubi while patient is in the hospital for assistance in management of his low back pain. Per Dr. Rubi's consult note patient is not a surgical candidate at this time. Smoking sensation would be mandatory requirements and patient is a high risk. Recommendation to consult and evaluation by pain management. Appreciate Dr. Rubi's assistance with the patient at this time. Consult was placed for pain management. Patient has seen pain management in the past. Appreciate their assistance in management of the patient at this time. Will hold xarelto in preparation for possible injections (2) Left-sided low back pain with sciatica Status: Acute Problem Text: Patient still complaining of pain going down his leg and in left buttock (3) Control of atrial fibrillation with pacemaker Problem Text: Patient is in sinus rhythm at this time. Continue metoprolol, holding Xarelto. (4) Diabetes mellitus type 2 in obese Problem Text: Continue to hold patient's metformin. Will use sliding scale insulin. (5) Hypertension Problem Text: Continue patient's home beta winston. Monitor as needed. (6) CAD (coronary artery disease) Problem Text: Patient's history of [place]. Continue patient's aspirin, statin, beta winston. Monitor as needed. Patient sees [facility] [place]. Patient will need to follow up outpatient. (7) Moderate to severe aortic stenosis Problem Text: Not critical on Echo this admission (8) Diastolic CHF Problem Text: Grade II, compensated (9) Pulmonary hypertension, moderate to severe Status: Chronic Plan/VTE VTE Prophylaxis Ordered?: Yes (home Xarelto) VS, I&O, 24H, Fishbone Vital Signs/I&O Vital Signs Date Time Temp Pulse Resp B/P (MAP) Pulse Ox O2 Delivery O2 Flow Rate FiO2 03/24/17 08:31 16 03/24/17 08:31 60 149/73 03/24/17 06:00 98.1 94 Room Air 03/23/17 06:00 1.0 I&O- Last 24 Hours up to 6 AM 03/24/17 06:00 Intake Total 1200 ml Output Total 775 ml Balance 425 ml Laboratory Data 24H LABS Laboratory Tests 2 03/23/17 11:34: Bedside Glucose (Misc Panel) 101 03/23/17 11:44: Urine Appearance CLEAR, Urine Color YELLOW, Urine pH 5.0, Urine Specific [place] 1.028, Urine Protein 1+H, Urine Glucose (UA) NEGATIVE, Urine Ketones NEGATIVE, Urine Urobilinogen 0.2, Urine Bilirubin NEGATIVE, Urine Leukocyte Esterase NEGATIVE, Urine Blood NEGATIVE, Urine Nitrite NEGATIVE, Urine WBC (Auto ) 1, Urine RBC (Auto) 1, Urine Hyaline Casts (Auto) 0, Urine Bacteria (Auto) NEGATIVE, Urine Squamous Epithelial Cells 0, Urine Mucus (Auto) SMALL, Urine Sperm (Auto) 03/23/17 16:36: Bedside Glucose (Misc Panel) 154H 03/23/17 20:29: Bedside Glucose (Misc Panel) 108 03/24/17 06:10: White Blood Count 9.7, Red Blood Count 3.80L, Hemoglobin 10.8L, Hematocrit 33.2L , Mean Corpuscular Volume 87.5, Mean Corpuscular Hemoglobin 28.4, Mean Corpuscular Hemoglobin Concent 32.5, Red Cell Distribution Width 14.7H, Platelet Count 236, Neutrophils (%) (Auto) 64.6, Lymphocytes (%) (Auto) 21.1L, Monocytes (%) (Auto) 7.1H, Eosinophils (%) (Auto) 4.6H, Basophils (%) (Auto) 0.6 , Neutrophils # (Auto) 6.3, Lymphocytes # (Auto) 2.2, Monocytes # (Auto) 0.7, Eosinophils # (Auto) 0.4, Basophils # (Auto) 0.1, Large Unclassified Cells % 1.9 , Large Unclassified Cells # 0.2, Anion Gap 5L, Glomerular Filtration Rate > 60.0, Blood Urea Nitrogen 36H, Creatinine 1.05, Sodium Level 144, Potassium Level 4.6, Chloride Level 109H, Carbon Dioxide Level 30, Calcium Level 8.6L, Magnesium Level 2.4 CBC/BMP Laboratory Tests 03/24/17 06:10 Red Blood Count 3.80 L, Mean Corpuscular Volume 87.5, Mean Corpuscular Hemoglobin 28.4, Mean Corpuscular Hemoglobin Concent 32.5, Red Cell Distribution Width 14.7 H, Neutrophils (%) (Auto) 64.6, Lymphocytes (%) (Auto) 21.1 L, Monocytes (%) (Auto) 7.1 H, Eosinophils (%) (Auto) 4.6 H, Basophils (%) (Auto) 0.6, Neutrophils # (Auto) 6.3, Lymphocytes # (Auto) 2.2, Monocytes # ( Auto) 0.7, Eosinophils # (Auto) 0.4, Basophils # (Auto) 0.1, Calcium Level 8.6 L Microbiology Microbiology 03/17/17 Blood Culture - Final, Complete NO GROWTH AFTER 5 DAYS 03/17/17 Blood Culture - Final, Complete NO GROWTH AFTER 5 DAYS 03/23/17 Urine Culture - Final, Complete 03/17/17 Urine Culture - Final, Complete FLJANICE ROMAN MD Mar 24, 2017 09:40
[2017-03-24] MEDS: oxyCODONE 5MG TAB PO PRN (11:17)
[2017-03-24 14:00] VITALS: BP 138/62
[2017-03-24] MEDS: POTASSIUM CHLORIDE 10 MEQ SR TABLET PO SCH (21:07)
[2017-03-24] MEDS: TERAZOSIN 1 MG CAP PO SCH (21:07)
[2017-03-24] MEDS: ATORVASTATIN 20 MG TAB PO SCH (21:07)
[2017-03-24] MEDS: **NOTE PATIENT COMMENT** MISC XX SCH (21:08)
[2017-03-24 22:00] VITALS: BP 167/72
[2017-03-25] MEDS: oxyCODONE 5MG TAB PO PRN ×4 (00:44→17:55)
[2017-03-25] MEDS: KETOROLAC 30 MG/ML VIAL (J1885) IV SCH (02:52)
[2017-03-25] MEDS: diazePAM 5 MG TAB PO PRN (03:30)
[2017-03-25 06:00] VITALS: BP 172/79
[2017-03-25 06:33] LABS: MEAN CORPUSCULAR HGB CONC 32.6 g/dl (32.0-36.5); MEAN CORPUSCULAR VOLUME 88.9 fl (80.0-96.0); RED CELL DISTRIBUTION WIDTH 14.9 % (11.5-14.5); WHITE BLOOD COUNT 8.7 K/mm3 (4.0-10.0)
[2017-03-25 06:50] LABS: ANION GAP 3 MEQ/L (8-16); BLOOD UREA NITROGEN 37 MG/DL (7-18); CALCIUM LEVEL 8.7 MG/DL (8.8-10.2); CARBON DIOXIDE LEVEL 31 MEQ/L (21-32); CHLORIDE LEVEL 111 MEQ/L (98-107); CREATININE FOR GFR 1.19 MG/DL (0.70-1.30); GLOMERULAR FILTRATION RATE > 60.0 (>49); GLUCOSE, FASTING 156 MG/DL (80-110); POTASSIUM SERUM 4.8 MEQ/L (3.5-5.1); SODIUM LEVEL 145 MEQ/L (136-145)
[2017-03-25] MEDS: GABAPENTIN 400 MG CAP PO SCH ×3 (08:15→21:01)
[2017-03-25] MEDS: SENOKOT S TAB PO SCH ×2 (08:16→21:01)
[2017-03-25] MEDS: ASPIRIN 81 MG ENTERIC TAB PO SCH (08:16)
[2017-03-25] MEDS: METOPROLOL TARTRATE 100 MG TAB PO SCH ×2 (08:16→21:01)
[2017-03-25] MEDS: OMEPRAZOLE 20 MG CAP PO SCH (08:16)
[2017-03-25] MEDS: LIDOCAINE 5% (LIDODERM) PATCH TD SCH (08:17)
[2017-03-25] MEDS: HumaLOG INSULIN (NovoLOG) PER UNIT SC SCH ×4 (08:18→21:00)
--- NOTE | 2017-03-25 11:55 | IPNPDOC ---
Subjective Date Seen The patient was seen on 03/25/17. Subjective Chief Complaint/HPI The patient is a 71-year-old male admitted with a reason for visit of Intractable Back Pain. Events since last encounter Patient reports still having pain. Pain is constant on laying down at 3 or 4 out of 10. No changes at all. Pain increases sharply with ambulation and sitting on edge of the bed. Patient however is able to sit up on the edge of the bed for exam. Was reported to be more fatigued and not himself yesterday but patient does not remember this. Patient would like something better for pain control. Constitutional: Denies: Fever, Malaise Eyes: Denies: Vision change ENT: Denies: Head Aches, Ear Pain Skin: Denies: Rash, Lesions Pulmonary: Denies: Dyspnea, Cough Cardiovascular: Denies: Chest Pain, Palpitations Gastrointestinal: Denies: Nausea, Vomiting Genitourinary: Denies: Dysuria, Frequency Musculoskeletal: Reports: Back Pain Neurological: Denies: Weakness, Numbness Psych: Reports: Mood Normal Objective Physical Examination General Exam: Positive: Alert, Cooperative, No Acute Distress Eye Exam: Negative: Sclera icteric ENT Exam: Positive: Mucous membr. moist/pink Chest Exam: Positive: Clear to auscultation, Normal air movement, Negative: Rales, Rhonchi, Wheezing Heart Exam: Positive: Rate Normal, Murmurs (systolic murmur 4 out of 6 left sternal border.) Abdomen Exam: Positive: Normal bowel sounds, Soft, Negative: Tenderness, Mass Extremity Exam: Positive: Clubbing, Normal pulses (radial pulses 2 out of 4 bilaterally. ) Skin Exam: Positive: Rash Neuro Exam: Positive: Normal Speech Psych Exam: Positive: Mental status NL Assessment /Plan Problems (1) Intractable back pain Problem Text: Patient is currently on * Toradol stopped due to 5 days total. * Oxycontin discontinued due to patient's change in mental status yesterday. * Oxy IR q4 prn * IV Morphine discontinued * Flexeril * Valium * Lidoderm Patient had an MRI of his lumbar spine on 03/20. MRI on 03/19/2017 showed 1. Minimal central canal stenosis at the L1-2 and L2-3 levels secondary to disc bulge, ligamentous and facet hypertrophy. The canal stenosis at the L2-3 level is a new finding. 2. Moderate central canal stenosis at the L3-4 level secondary to disc bulge, ligamentous and facet hypertrophy. There has been progression of the canal stenosis. 3. Severe central canal stenosis at the L4-5 level secondary to disc bulge, ligamentous and facet hypertrophy. The previously noted right synovial cyst is not seen. 4. Severe loss of height of the L5-S1 intervertebral disc. Posterior and lateral osteophytes are present. There is no thecal sac compression. There is compression of the L5 nerves in the neural foramina. A right laminectomy defect is present. The left L5 nerve compression is a new finding. 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 This was visualized on chest radiograph on 03/18/17. Patient has been seen by orthopedist previously. Consulted Dr. Rubi while patient is in the hospital for assistance in management of his low back pain. Per Dr. Rubi's consult note patient is not a surgical candidate at this time. Smoking sensation would be mandatory requirements and patient is a high risk. Recommendation to consult and evaluation by pain management. Appreciate Dr. Rubi's assistance with the patient at this time. Consult was placed for pain management. Patient has seen pain management in the past. Appreciate their assistance in management of the patient at this time. Will hold xarelto in preparation for possible injections. Called pain managements and left couple messages for a return phone call. Let them know that Xarelto has been held. The patient could possibly benefit from injections as previously discussed and note. [place] like call back and patient is scheduled for pain injections at 1 PM today. (2) Left-sided low back pain with sciatica Status: Acute Problem Text: Patient still complaining of pain going down his leg and in left buttock (3) Control of atrial fibrillation with pacemaker Problem Text: Patient is in sinus rhythm at this time. Continue metoprolol, holding Xarelto. (4) Diabetes mellitus type 2 in obese Problem Text: Continue to hold patient's metformin. Will use sliding scale insulin. (5) Hypertension Problem Text: Continue patient's home beta [place]. Monitor as needed. (6) CAD (coronary artery disease) Problem Text: Patient's history of [place]. Continue patient's aspirin, statin, beta winston. Monitor as needed. Patient sees a Singing Messenger at the OR in [place]. Patient will need to follow up outpatient. (7) Moderate to severe aortic stenosis Problem Text: Not critical on Echo this admission (8) Diastolic CHF Problem Text: Grade II, compensated (9) Pulmonary hypertension, moderate to severe Status: Chronic Plan/VTE VTE Prophylaxis Ordered?: Yes (home Xarelto) VS, I&O, 24H, Fishbone Vital Signs/I&O Vital Signs Date Time Temp Pulse Resp B/P (MAP) Pulse Ox O2 Delivery O2 Flow Rate FiO2 03/25/17 10:16 16 03/25/17 08:16 62 144/79 03/25/17 07:30 Room Air 03/25/17 07:30 93 03/25/17 06:00 97.8 03/23/17 06:00 1.0 I&O- Last 24 Hours up to 6 AM 03/25/17 06:00 Intake Total 960 ml Output Total 1125 ml Balance -165 ml Laboratory Data 24H LABS Laboratory Tests 2 03/24/17 11:54: Bedside Glucose (Misc Panel) 138H 03/24/17 16:39: Bedside Glucose (Misc Panel) 162H 03/24/17 20:27: Bedside Glucose (Misc Panel) 159H 03/25/17 06:09: Anion Gap 3L, Glomerular Filtration Rate > 60.0, Blood Urea Nitrogen 37H, Creatinine 1.19, Sodium Level 145, Potassium Level 4.8, Chloride Level 111H, Carbon Dioxide Level 31, Calcium Level 8.7L CBC/BMP Laboratory Tests 03/25/17 06:09 Red Blood Count 3.57 L, Mean Corpuscular Volume 88.9, Mean Corpuscular Hemoglobin 29.0, Mean Corpuscular Hemoglobin Concent 32.6, Red Cell Distribution Width 14.9 H, Calcium Level 8.7 L Microbiology Microbiology 03/17/17 Blood Culture - Final, Complete NO GROWTH AFTER 5 DAYS 03/17/17 Blood Culture - Final, Complete NO GROWTH AFTER 5 DAYS 03/23/17 Urine Culture - Final, Complete 03/17/17 Urine Culture - Final, Complete GME ATTESTATION GME ATTESTATION My preceptor for this patient encounter was Dr. Zuleta and he was physically present in the building during the encounter and was fully available. As needed , all aspects of the patient interview, examination, medical decision making process, and medical care plan development were reviewed and approved by the preceptor. Preceptor is aware and concurs with the plan as stated in the body of this note and will attest to such by his/her cosignature. VIOLET CHAVES DO Mar 25, 2017 11:55
[2017-03-25] MEDS ORDERED: BUPIVACAINE HCL 0.25% 30 ML VIAL As Ordered ONE (14:33)
[2017-03-25] MEDS ORDERED: ISOVUE-M 300 61% 15ML VIAL (Q9967) As Ordered ONE (14:33)
[2017-03-25] MEDS ORDERED: TRIAMCINOLONE ACETONIDE SUSP 40 MG/ML VIAL (J3301) As Ordered ONE (14:33)
[2017-03-25] MEDS ORDERED: LIDOCAINE 1% SDV INJ 30 ML VIAL As Ordered ONE (14:33)
--- NOTE | 2017-03-25 17:04 | REP ---
FLUOROSCOPIC GUIDANCE: The images were reviewed with Dr. Estevez. The patient has a history of back pain. The portable C-ARM was provided in the OR by Dr. Silvestre for fluoroscopic guidance. 3 intraoperative fluoroscopic spot films were obtained for needle placement verification for left SI joint injection. The films are on the PACS system and are available for review. 24 seconds of fluoroscopic time was utilized for this procedure. Reviewed by UBD Pantjoa 03/25/2017 05:09 PEdited and Signed by Titus Estevez MD 03/25/2017 05:18 P
[2017-03-25] MEDS: ATORVASTATIN 20 MG TAB PO SCH (21:00)
[2017-03-25] MEDS: **NOTE PATIENT COMMENT** MISC XX SCH (21:00)
[2017-03-25] MEDS: TERAZOSIN 1 MG CAP PO SCH (21:01)
[2017-03-25] MEDS: POTASSIUM CHLORIDE 10 MEQ SR TABLET PO SCH (21:01)
[2017-03-25 22:00] VITALS: BP 134/72
[2017-03-26 06:00] VITALS: BP 177/83
[2017-03-26 06:47] LABS: MEAN CORPUSCULAR HEMOGLOBIN 28.9 pg (27.0-33.0); MEAN CORPUSCULAR HGB CONC 32.5 g/dl (32.0-36.5); WHITE BLOOD COUNT 10.4 K/mm3 (4.0-10.0)
[2017-03-26 07:14] LABS: ANION GAP 3 MEQ/L (8-16); BLOOD UREA NITROGEN 29 MG/DL (7-18); CALCIUM LEVEL 8.7 MG/DL (8.8-10.2); CARBON DIOXIDE LEVEL 32 MEQ/L (21-32); CHLORIDE LEVEL 105 MEQ/L (98-107); CREATININE FOR GFR 0.92 MG/DL (0.70-1.30); GLOMERULAR FILTRATION RATE > 60.0 (>49); GLUCOSE, FASTING 155 MG/DL (80-110); POTASSIUM SERUM 4.2 MEQ/L (3.5-5.1); SODIUM LEVEL 140 MEQ/L (136-145)
[2017-03-26] MEDS: LIDOCAINE 5% (LIDODERM) PATCH TD SCH (08:31)
[2017-03-26] MEDS: ASPIRIN 81 MG ENTERIC TAB PO SCH (08:31)
[2017-03-26] MEDS: SENOKOT S TAB PO SCH ×2 (08:32→21:14)
[2017-03-26] MEDS: GABAPENTIN 400 MG CAP PO SCH ×3 (08:32→21:13)
[2017-03-26] MEDS: OMEPRAZOLE 20 MG CAP PO SCH (08:32)
[2017-03-26] MEDS: METOPROLOL TARTRATE 100 MG TAB PO SCH ×2 (08:32→21:14)
[2017-03-26] MEDS: HumaLOG INSULIN (NovoLOG) PER UNIT SC SCH ×4 (08:33→21:00)
[2017-03-26] MEDS: oxyCODONE 5MG TAB PO PRN ×2 (11:38→15:55)
--- NOTE | 2017-03-26 15:06 | IPNPDOC ---
Subjective Date Seen The patient was seen on 03/26/17. Subjective Chief Complaint/HPI The patient is a 71-year-old male admitted with a reason for visit of Intractable Back Pain. Events since last encounter Patient reports that he is feeling better. Reports that the injection yesterday was beneficial. Pain has decreased to not much while lying down, like a 1/10 or less. Patient has not walked too much since injections. Was able to go to the bathroom without as much difficulty. Constitutional: Denies: Chills, Fever Eyes: Denies: Pain, Vision change ENT: Denies: Head Aches Skin: Denies: Rash, Lesions Pulmonary: Reports: Dyspnea (on oxygen), Denies: Cough Cardiovascular: Denies: Chest Pain, Palpitations Gastrointestinal: Denies: Nausea, Vomiting Genitourinary: Denies: Dysuria, Frequency Hematologic: Denies: Bruising, Bleeding Excessively Musculoskeletal: Reports: Back Pain Neurological: Denies: Change in speech, Confusion Psych: Reports: Mood Normal Objective Physical Examination General Exam: Positive: Alert, Cooperative, No Acute Distress Eye Exam: Negative: Sclera icteric ENT Exam: Positive: Mucous membr. moist/pink Neck Exam: Negative: Supple, JVD, thyromegaly Chest Exam: Positive: Clear to auscultation, Normal air movement, Negative: Rales, Rhonchi, Wheezing Heart Exam: Positive: Rate Normal, Murmurs (systolic murmur 3 out of 6 left sternal border.) Abdomen Exam: Positive: Normal bowel sounds, Soft, Negative: Tenderness, Mass Extremity Exam: Positive: Normal pulses (radial pulses 2 out of 4 bilaterally. ), Negative: Clubbing Skin Exam: Positive: Rash Neuro Exam: Positive: Normal Speech, Strength at 5/5 X4 ext (Strength 5/5 bilateral lower extremities. ) Psych Exam: Positive: Mental status NL Assessment /Plan Problems (1) Intractable back pain Problem Text: Patient is currently on * Oxy IR q4 prn * Flexeril * Valium * Lidoderm Patient had an MRI of his lumbar spine on 03/20. MRI on 03/19/2017 showed 1. Minimal central canal stenosis at the L1-2 and L2-3 levels secondary to disc bulge, ligamentous and facet hypertrophy. The canal stenosis at the L2-3 level is a new finding. 2. Moderate central canal stenosis at the L3-4 level secondary to disc bulge, ligamentous and facet hypertrophy. There has been progression of the canal stenosis. 3. Severe central canal stenosis at the L4-5 level secondary to disc bulge, ligamentous and facet hypertrophy. The previously noted right synovial cyst is not seen. 4. Severe loss of height of the L5-S1 intervertebral disc. Posterior and lateral osteophytes are present. There is no thecal sac compression. There is compression of the L5 nerves in the neural foramina. A right laminectomy defect is present. The left L5 nerve compression is a new finding. 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 This was visualized on chest radiograph on 03/18/17. Patient has been seen by orthopedist previously. Consulted Dr. Rubi while patient is in the hospital for assistance in management of his low back pain. Per Dr. Rubi's consult note patient is not a surgical candidate at this time. Smoking sensation would be mandatory requirements and patient is a high risk. Recommendation to consult and evaluation by pain management. Appreciate Dr. Rubi's assistance with the patient at this time. Consult was placed for pain management. Patient has seen pain management in the past. Appreciate their assistance in management of the patient at this time. Will hold Xarelto in preparation for possible injections. Patient had pain management injection yesterday. Patient has improvement today and almost no pain at rest. Will continue to work with physical therapy today and strengthening. [facility]es tomorrow morning for possible discharge. Pain management would like patient to follow up in 2 weeks. Continue to hold Xarelto today in case patient required more injections from pain management. Will continue it tomorrow. (2) Left-sided low back pain with sciatica Status: Acute Problem Text: Patient still complaining of pain going down his leg and in left buttock (3) Control of atrial fibrillation with pacemaker Problem Text: Patient is in sinus rhythm at this time. Continue metoprolol, holding Xarelto. (4) Diabetes mellitus type 2 in obese Problem Text: Continue to hold patient's metformin. Will use sliding scale insulin. (5) Hypertension Problem Text: Continue patient's home beta [place]. Monitor as needed. (6) CAD (coronary artery disease) Problem Text: Patient's history of [place]. Continue patient's aspirin, statin, beta winston. Monitor as needed. Patient sees a Brush Holder Assembler at the [facility] in [place]. Patient will need to follow up outpatient. (7) Moderate to severe aortic stenosis Problem Text: Not critical on Echo this admission (8) Diastolic CHF Problem Text: Grade II, compensated (9) Pulmonary hypertension, moderate to severe Status: Chronic Plan/VTE VTE Prophylaxis Ordered?: Yes (holding Xarelto, stockings and sequentials) VS, I&O, 24H, Fishbone Vital Signs/I&O Vital Signs Date Time Temp Pulse Resp B/P (MAP) Pulse Ox O2 Delivery O2 Flow Rate FiO2 03/26/17 12:33 16 03/26/17 08:32 145/78 03/26/17 08:00 92 Room Air 03/26/17 06:00 97.2 66 2.0 I&O- Last 24 Hours up to 6 AM 03/26/17 06:00 Intake Total 960 ml Output Total 475 ml Balance 485 ml Laboratory Data 24H LABS Laboratory Tests 2 03/25/17 16:48: Bedside Glucose (Misc Panel) 149H 03/25/17 20:17: Bedside Glucose (Misc Panel) 166H 03/26/17 06:26: Anion Gap 3L, Glomerular Filtration Rate > 60.0, Blood Urea Nitrogen 29H, Creatinine 0.92, Sodium Level 140, Potassium Level 4.2, Chloride Level 105, Carbon Dioxide Level 32, Calcium Level 8.7L 03/26/17 11:57: Bedside Glucose (Misc Panel) 172H CBC/BMP Laboratory Tests 03/26/17 06:26 Red Blood Count 3.75 L, Mean Corpuscular Volume 89.0, Mean Corpuscular Hemoglobin 28.9, Mean Corpuscular Hemoglobin Concent 32.5, Red Cell Distribution Width 15.0 H, Calcium Level 8.7 L Microbiology Microbiology 03/17/17 Blood Culture - Final, Complete NO GROWTH AFTER 5 DAYS 03/17/17 Blood Culture - Final, Complete NO GROWTH AFTER 5 DAYS 03/23/17 Urine Culture - Final, Complete 03/17/17 Urine Culture - Final, Complete GME ATTESTATION GME ATTESTATION My preceptor for this patient encounter was Dr. Zuleta and he was physically present in the building during the encounter and was fully available. As needed , all aspects of the patient interview, examination, medical decision making process, and medical care plan development were reviewed and approved by the preceptor. Preceptor is aware and concurs with the plan as stated in the body of this note and will attest to such by his/her cosignature. VIOLET CHAVES DO Mar 26, 2017 15:06
[2017-03-26] MEDS: **NOTE PATIENT COMMENT** MISC XX SCH (21:00)
[2017-03-26] MEDS: ATORVASTATIN 20 MG TAB PO SCH (21:13)
[2017-03-26] MEDS: TERAZOSIN 1 MG CAP PO SCH (21:14)
[2017-03-26] MEDS: POTASSIUM CHLORIDE 10 MEQ SR TABLET PO SCH (21:14)
[2017-03-26 22:00] VITALS: BP 131/67
[2017-03-27 06:00] VITALS: BP 137/70
[2017-03-27 06:51] LABS: MEAN CORPUSCULAR HEMOGLOBIN 27.8 pg (27.0-33.0); MEAN CORPUSCULAR HGB CONC 30.9 g/dl (32.0-36.5); RED CELL DISTRIBUTION WIDTH 15.3 % (11.5-14.5); WHITE BLOOD COUNT 10.8 K/mm3 (4.0-10.0)
[2017-03-27 07:01] LABS: ANION GAP 3 MEQ/L (8-16); BLOOD UREA NITROGEN 27 MG/DL (7-18); CALCIUM LEVEL 8.6 MG/DL (8.8-10.2); CARBON DIOXIDE LEVEL 31 MEQ/L (21-32); CHLORIDE LEVEL 108 MEQ/L (98-107); CREATININE FOR GFR 0.96 MG/DL (0.70-1.30); GLOMERULAR FILTRATION RATE > 60.0 (>49); GLUCOSE, FASTING 178 MG/DL (80-110); POTASSIUM SERUM 4.3 MEQ/L (3.5-5.1); SODIUM LEVEL 142 MEQ/L (136-145)
[2017-03-27] MEDS: LIDOCAINE 5% (LIDODERM) PATCH TD SCH (08:17)
[2017-03-27 08:18] VITALS: BP 137/70
[2017-03-27] MEDS: ASPIRIN 81 MG ENTERIC TAB PO SCH (08:18)
[2017-03-27] MEDS: SENOKOT S TAB PO SCH (08:18)
[2017-03-27] MEDS: HumaLOG INSULIN (NovoLOG) PER UNIT SC SCH (08:18)
[2017-03-27] MEDS: METOPROLOL TARTRATE 100 MG TAB PO SCH (08:18)
[2017-03-27] MEDS: OMEPRAZOLE 20 MG CAP PO SCH (08:18)
[2017-03-27] MEDS: GABAPENTIN 400 MG CAP PO SCH (08:18)
--- NOTE | 2017-03-27 10:44 | IPNPDOC ---
Subjective Date Seen The patient was seen on 03/27/17. Subjective Chief Complaint/HPI The patient is a 71-year-old male admitted with a reason for visit of Intractable Back Pain. Events since last encounter Patient is sitting up in bed. He reports he's feeling a lot better. The pain at the moment is 110. Was able to do a lot more walking. Patient reports even walking without the walker at periods of time. Was able to make it to the bathroom and back with little difficulty compared to before. Is feeling a lot better and is ready to go home. Is able to tolerate his food orally. Constitutional: Denies: Chills, Fever Eyes: Denies: Vision change ENT: Denies: Head Aches, Ear Pain Skin: Denies: Rash, Lesions Pulmonary: Denies: Dyspnea, Cough Cardiovascular: Denies: Chest Pain, Palpitations Gastrointestinal: Denies: Nausea, Vomiting, Abdominal Pain Genitourinary: Denies: Dysuria, Frequency Musculoskeletal: Reports: Back Pain Neurological: Denies: Weakness, Numbness, Change in speech, Confusion Psych: Reports: Mood Normal Objective Physical Examination General Exam: Positive: Alert, Cooperative, No Acute Distress, Other (sitting up on the edge of the bed. Eating breakfast.) Eye Exam: Negative: Sclera icteric ENT Exam: Positive: Mucous membr. moist/pink Neck Exam: Negative: Supple, JVD, thyromegaly Chest Exam: Positive: Clear to auscultation, Normal air movement, Negative: Rales, Rhonchi, Wheezing Heart Exam: Positive: Rate Normal, Murmurs (systolic murmur 3 out of 6 left sternal border.) Abdomen Exam: Positive: Normal bowel sounds, Soft, Negative: Tenderness, Mass Extremity Exam: Positive: Normal pulses (radial pulses 2 out of 4 bilaterally. ), Negative: Clubbing Skin Exam: Positive: Rash Neuro Exam: Positive: Normal Speech Psych Exam: Positive: Mental status NL Assessment /Plan Problems (1) Intractable back pain Problem Text: Patient is currently on * Oxy IR q4 prn * Flexeril * Valium * Lidoderm patch Patient had an MRI of his lumbar spine on 03/20. MRI on 03/19/2017 showed 1. Minimal central canal stenosis at the L1-2 and L2-3 levels secondary to disc bulge, ligamentous and facet hypertrophy. The canal stenosis at the L2-3 level is a new finding. 2. Moderate central canal stenosis at the L3-4 level secondary to disc bulge, ligamentous and facet hypertrophy. There has been progression of the canal stenosis. 3. Severe central canal stenosis at the L4-5 level secondary to disc bulge, ligamentous and facet hypertrophy. The previously noted right synovial cyst is not seen. 4. Severe loss of height of the L5-S1 intervertebral disc. Posterior and lateral osteophytes are present. There is no thecal sac compression. There is compression of the L5 nerves in the neural foramina. A right laminectomy defect is present. The left L5 nerve compression is a new finding. 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 This was visualized on chest radiograph on 03/18/17. Patient has been seen by orthopedist previously. Consulted Dr. Rubi while patient is in the hospital for assistance in management of his low back pain. Per Dr. Rubi's consult note patient is not a surgical candidate at this time. Smoking sensation would be mandatory requirements and patient is a high risk. Recommendation to consult and evaluation by pain management. Appreciate Dr. Rubi's assistance with the patient at this time. Consult was placed for pain management. Patient has seen pain management in the past. Appreciate their assistance in management of the patient at this time. Will hold Xarelto in preparation for possible injections. Patient had pain management injection 03/25/2017. Patient has improvement, almost no pain at rest. Will continue to work with physical therapy today and strengthening. Did not pass physical therapy yesterday for discharge. Will need to be reassessed today. Patient's pain is better managed taking less of the oxycodone and has not had any Valium for 2 days. Pain management would like patient to follow up in 2 weeks. Restarting patient's Xarelto for atrial fibrillation today. (2) Left-sided low back pain with sciatica Status: Acute Problem Text: Patient still complaining of pain going down his leg and in left buttock (3) Control of atrial fibrillation with pacemaker Problem Text: Patient is in sinus rhythm at this time. Starting Xarelto today. (4) Diabetes mellitus type 2 in obese Problem Text: Continue to hold patient's metformin. Will use sliding scale insulin. (5) Hypertension Problem Text: Continue patient's home beta [place]. Monitor as needed. (6) CAD (coronary artery disease) Problem Text: Patient's history of [place]. Continue patient's aspirin, statin, beta winston. Monitor as needed. Patient sees a Oil Drilling Engineer at the [facility] in [place]. Patient will need to follow up outpatient. (7) Moderate to severe aortic stenosis Problem Text: Not critical on Echo this admission (8) Diastolic CHF Problem Text: Grade II, compensated (9) Pulmonary hypertension, moderate to severe Status: Chronic Plan/VTE VTE Prophylaxis Ordered?: Yes (Restarting Xarelto today. Compression stockings. ) VS, I&O, 24H, Fishbone Vital Signs/I&O Vital Signs Date Time Temp Pulse Resp B/P (MAP) Pulse Ox O2 Delivery O2 Flow Rate FiO2 03/27/17 08:25 93 Room Air 03/27/17 08:18 60 137/70 03/27/17 06:00 98.0 18 03/26/17 06:00 2.0 I&O- Last 24 Hours up to 6 AM 03/27/17 06:00 Intake Total 1200 ml Output Total 1325 ml Balance -125 ml Laboratory Data 24H LABS Laboratory Tests 2 03/26/17 11:57: Bedside Glucose (Misc Panel) 172H 03/26/17 16:47: Bedside Glucose (Misc Panel) 206H 03/26/17 21:01: Bedside Glucose (Misc Panel) 174H 03/27/17 06:25: Anion Gap 3L, Glomerular Filtration Rate > 60.0, Blood Urea Nitrogen 27H, Creatinine 0.96, Sodium Level 142, Potassium Level 4.3, Chloride Level 108H, Carbon Dioxide Level 31, Calcium Level 8.6L CBC/BMP Laboratory Tests 03/27/17 06:25 Red Blood Count 3.80 L, Mean Corpuscular Volume 90.0, Mean Corpuscular Hemoglobin 27.8, Mean Corpuscular Hemoglobin Concent 30.9 L, Red Cell Distribution Width 15.3 H, Calcium Level 8.6 L Microbiology Microbiology 03/17/17 Blood Culture - Final, Complete NO GROWTH AFTER 5 DAYS 03/17/17 Blood Culture - Final, Complete NO GROWTH AFTER 5 DAYS 03/23/17 Urine Culture - Final, Complete 03/17/17 Urine Culture - Final, Complete GME ATTESTATION GME ATTESTATION My preceptor for this patient encounter was Dr. Dillon and he was physically present in the building during the encounter and was fully available. As needed , all aspects of the patient interview, examination, medical decision making process, and medical care plan development were reviewed and approved by the preceptor. Preceptor is aware and concurs with the plan as stated in the body of this note and will attest to such by his/her co-signature. VIOLET CHAVES DO Mar 27, 2017 10:44
[2017-03-27] MEDS ORDERED: GABA-283 PO (11:56)
[2017-03-27] MEDS ORDERED: LIDO5TD TD (11:56)
[2017-03-27] MEDS ORDERED: OXYCO5TA PO (11:59)
[2017-03-27] MEDS ORDERED: OXYC15TA76 PO ×2 (13:12→13:31)
[2017-03-27] MEDS ORDERED: OXYC-517 PO (14:00)
--- NOTE | 2017-03-27 17:00 | DS.PDOC ---
Discharge Summary General Date of Admission Mar 19, 2017 at 07:15 Date of Discharge 03/27/17 Attending Physician: VIOLET PARKER MD Specialist/Consultants Involve: Landon Silvestre MD Specialist/Consultants Involve SHERRIE Butler MD Discharge Summary Primary Care Physician: Dr. Manoj Mac PROCEDURES PERFORMED DURING STAY: 1. Sacroiliac joint injection ADMITTING DIAGNOSES: 1. Possible UTI. 2. Intractable back pain. 3. Atrial fibrillation status post ablation and pacemaker placement. DISCHARGE DIAGNOSES: 1. Intractable back pain. 2. Atrial fibrillation with pacemaker. 3. Diastolic congestive heart failure. COMPLICATIONS/CHIEF COMPLAINT: Intractable Back Pain. HISTORY OF PRESENT ILLNESS: Patient is a 71-year-old male with past medical history significant for atrial fibrillation status post ablation and pacemaker placement, coronary artery disease post stents, diabetes mellitus type 2, hypertension, aortic stenosis presented to the ER on 03/17/2017 because of low back pain. Patient was seen in the ER previously of of admission for low back pain as well. At that time patient was initially discharged from the ER but upon discharge, patient stated he was unable to walk. Therefore patient was offered admission. Upon discussing admission with the resident physician the patient admitted he did not want to stay in the hospital and subsequently stood up and walked. Therefore he was discharged from the emergency room. Patient was given prescriptions for Valium and Neurontin. The following day on Saturday patient proceeded to go to the emergency department [facility]. He was given some medication but is unsure of what it was. He is returning to the emergency department today because he continues to have pain. He states the pain is located in the center of his back and runs on his left leg. The pain had begun 4 days previous to admission. On admission patient describes it as feeling like someone kicked him in the back and stabbed him. He says he's had this pain before but has never been this bad. It was a constant pain. Patient had been taking Valium more frequently than being prescribed but is not taking Neurontin. Patient also tried a dose of daughter's tramadol which did not help. Denies any numbness or tingling in his groin. Is having some pain when attempting to urinate standing up but has no difficulty laying down urinating into a urinal. Is having some looser stools on admission prior. Rectal exam on the ER was noted to have a normal rectal tone. HOSPITAL COURSE: Upon admission patient was worked up for his intractable back pain. Patient was placed on several different types of pain medication. His Valium and Neurontin were continued. An MRI of patient's lumbar spine did not reveal anything significant. A head CT also did not reveal any acute changes. Patient had been seen by orthopedic surgeon in the past and was seen by Dr. Iftikhar Rubi on the hospital. Patient was deemed a nonsurgical candidate. Dr. Rubi recommended pain management for assistance. They were also consulted during this visit. Both Destinee Willson and Dr. Silvestre examined the patient. He was deems to possibly benefit from a sacroiliac joint injection. They recommended increasing patient's Neurontin to 400 mg 3 times a day from 300 mg. Patient's Xarelto for atrial fibrillation was stopped 1 days prior to procedure. Sacroiliac joint injection was performed and patient noticed benefit from this. Prior to procedure patient had been mostly lying in bed and pain medication was not adequately controlling his pain. While in the hospital echocardiogram was performed. Patient has a cardiac history significant for aortic stenosis, coronary artery disease post stent placement, heart failure, and atrial fibrillation. Patient previously seen a inside tester down at the [facility] in [place]. This echo was performed in case patient was deemed a surgical candidate. Initial urinalysis was positive for bacteria and leukocyte esterase. And patient was initially started on Rocephin. However patient denied any symptoms of dysuria or frequency. Rocephin was stopped. Urine cultures came back negative. Repeat urinalysis due to pain were also negative. DISCHARGE MEDICATIONS: Please see below. ALLERGIES: Please see below. PHYSICAL EXAMINATION ON DISCHARGE: VITAL SIGNS: Please see below. GENERAL: Cooperative and comfortable. Alert and orientated. No acute distress. HEENT: No signs of injury. No rhinorrhea. Extraocular muscles intact. NECK: No enlarged lymph nodes. CARDIOVASCULAR EXAMINATION: Systolic 3/6 murmur left sternal border. RESPIRATORY EXAMINATION: Clear to auscultation bilaterally. No wheezing or rhonchi. ABDOMINAL EXAMINATION: Soft and nontender. Bowel sounds heard auscultation. EXTREMITIES: No lower extremity edema. Radial pulses 2 out of 4 bilaterally. SKIN: No new lesions or rashes. NEUROLOGICAL EXAMINATION: Speech intact. PSYCHIATRIC EXAMINATION: Normal affect. LABORATORY DATA: Please see below. IMAGING: Echocardiogram showed 1. Study is of fair technical quality. 2. Normal LV size with moderate left ventricular hypertrophy and preserved LV systolic function. Likely grade 2 diastolic dysfunction. 3. Moderately severe aortic stenosis, [id number] aortic insufficiency. 4. Degenerative abnormalities of mitral valve resulting in mild mitral insufficiency. 5. Elevated central venous pressure. 6. At least moderate pulmonary hypertension. Head CT showed 1. Age-appropriate cerebellar and cerebral atrophy. 2. Mild chronic microvascular disease. 3. No evidence of acute intracranial pathology Lumbar Spine MRI showed 1. Minimal central canal stenosis at the L1-2 and L2-3 levels secondary to disc bulge, ligamentous and facet hypertrophy. The canal stenosis at the L2-3 level is a new finding. 2. Moderate central canal stenosis at the L3-4 level secondary to disc bulge, ligamentous and facet hypertrophy. There has been progression of the canal stenosis. 3. Severe central canal stenosis at the L4-5 level secondary to disc bulge, ligamentous and facet hypertrophy. The previously noted right synovial cyst is not seen. 4. Severe loss of height of the L5-S1 intervertebral disc. Posterior and lateral osteophytes are present. There is no thecal sac compression. There is compression of the L5 nerves in the neural foramina. A right laminectomy defect is present. The left L5 nerve compression is a new finding. 5. Arachnoiditis. Chest x-ray revealed No acute cardiopulmonary process or focal consolidation appreciated. PROGNOSIS: Patient is a 71-year-old male with past medical history significant for atrial fibrillation status post ablation and pacemaker placement, coronary artery disease post stents, DMtype2,hypertension, aortic stenosis who presented to the ER because of low back pain. Patient's pain was better managed post sacroiliac joint injection. Patient was cleared by physical therapy for home. Continuing patient on Oxycodone, Lidoderm patch, Valium for pain. Will follow- up with his primary care physician and pain management. Patient return to the ER if symptoms worsen. Restarting patient on Xarelto and hold metformin on discharge. Patient's potassium has been within normal range past 48 hours continue patient on lower dose of potassium daily. ACTIVITY: As tolerated DIET: Consistent carbohydrate. DISCHARGE PLAN: Home DISPOSITION: 01 Home, Self-Care. DISCHARGE INSTRUCTIONS: 1. Follow-up with PCP Dr. Manoj Mac in 1-3 days 2. Follow-up with pain management in 1-3 days. DISCHARGE CONDITION: Stable TIME SPENT ON DISCHARGE: Greater than 30 minutes. Vital Signs/I&Os Vital Signs Date Time Temp Pulse Resp B/P (MAP) Pulse Ox O2 Delivery O2 Flow Rate FiO2 03/27/17 08:25 93 Room Air 03/27/17 08:18 60 137/70 03/27/17 06:00 98.0 18 03/26/17 06:00 2.0 I&O- Last 24 Hours up to 6 AM 03/27/17 06:00 Intake Total 1200 ml Output Total 1325 ml Balance -125 ml Laboratory Data Labs 24H Laboratory Tests 2 03/26/17 16:47: Bedside Glucose (Misc Panel) 206H 03/26/17 21:01: Bedside Glucose (Misc Panel) 174H 03/27/17 06:25: Anion Gap 3L, Glomerular Filtration Rate > 60.0, Blood Urea Nitrogen 27H, Creatinine 0.96, Sodium Level 142, Potassium Level 4.3, Chloride Level 108H, Carbon Dioxide Level 31, Calcium Level 8.6L CBC/BMP Laboratory Tests 03/27/17 06:25 Red Blood Count 3.80 L, Mean Corpuscular Volume 90.0, Mean Corpuscular Hemoglobin 27.8, Mean Corpuscular Hemoglobin Concent 30.9 L, Red Cell Distribution Width 15.3 H, Calcium Level 8.6 L FSBS Laboratory Tests Test 03/26/17 16:47 03/26/17 21:01 Range/Units Bedside Glucose (Misc Panel) 206 174 80-115 MG/DL Microbiology Microbiology 03/17/17 Blood Culture - Final, Complete NO GROWTH AFTER 5 DAYS 03/17/17 Blood Culture - Final, Complete NO GROWTH AFTER 5 DAYS 03/23/17 Urine Culture - Final, Complete 03/17/17 Urine Culture - Final, Complete Discharge Medications Scheduled Aspirin (Aspirin) 81 Mg Tab, 81 MG PO DAILY, (Reported) Atorvastatin Calcium (Atorvastatin Calcium) 80 Mg Tab, 80 MG PO QPM, (Reported) Gabapentin (Gabapentin) 400 Mg Cap, 400 MG PO TID Lidocaine (Lidocaine) 5 % Pad, 1 PATCH TD DAILY Metformin Hydrochloride (Metformin HCl) 1,000 Mg Tab, 1,000 MG PO QAM, (Reported ) Metformin Hydrochloride (Metformin HCl) 500 Mg Tab, 500 MG PO BID, (Reported) TAKE AT NOON AND DINNERTIME Metoprolol Tartrate (Metoprolol Tartrate) 100 Mg Tab, 100 MG PO BID, (Reported) Omeprazole (Omeprazole) 20 Mg Cap, 20 MG PO DAILY, (Reported) Potassium Chloride (Klor-Con M20) 20 Meq Tabcr, 20 MEQ PO QPM, (Reported) Rivaroxaban (Xarelto) 20 Mg Tab, 20 MG PO QPM, (Reported) Terazosin HCl (Terazosin HCl) 1 Mg Cap, 1 MG PO QPM, (Reported) Scheduled PRN Diazepam (Diazepam) 5 Mg Tab, 5 MG PO Q8H PRN for BACK PAIN, (Reported) Oxycodone HCl (Oxycodone HCl) 5 Mg Tab, 15 MG PO Q6HP PRN for SEVERE PAIN (PS 8- 10) Oxycodone HCl (Oxycodone HCl) 5 Mg Tab, 5 MG PO Q6HP PRN for pain Take 3 tablets every 6 hours as needed for pain Oxycodone Hcl (Oxycodone HCl) 15 Mg Tab, 15 MG PO Q6HP PRN for pain Oxycodone Hcl (Oxycodone HCl) 15 Mg Tab, 5 MG PO Q6HP PRN for pain Take 3 tablets every 6 hours as needed Allergies Coded Allergies: No Known Drug Allergy (Verified Allergy, Unknown, 05/06/14) GME ATTESTATION GME ATTESTATION My preceptor for this patient encounter was Dr. Parker and he was physically present in the building during the encounter and was fully available. As needed , all aspects of the patient interview, examination, medical decision making process, and medical care plan development were reviewed and approved by the preceptor. Preceptor is aware and concurs with the plan as stated in the body of this note and will attest to such by his/her co-signature. VIOLET CHAVES DO Mar 27, 2017 16:34
[2017-03-27] MEDS ORDERED: RIVAROXABAN 20 MG TAB (XARELTO) PO SCH (18:00)
== END 2017-03-27 13:35 | disposition home or self-care (01) | DRG 347 ==
LOC: EDBD 09:54 → M ED 10:48 → M ED INP 12:39 → M MS5PR 15:03 → OBSVTOIN 03-19 07:15
PROVIDERS: ADMIT Hospitalist; ATTEND Internal Medicine
PROC: 3E0R3NZ Introduction of Analgesics, Hypnotics, Sedatives into Spinal Canal, Percutaneous Approach (ICD-10-PCS; principal; 2017-03-25)
DX: M54.42 Lumbago with sciatica, left side (principal); G03.1 Chronic meningitis; I11.0 Hypertensive heart disease with heart failure; I50.32 Chronic diastolic (congestive) heart failure; I48.91 Unspecified atrial fibrillation; M48.06 Spinal stenosis, lumbar region; Z66 Do not resuscitate; E11.9 Type 2 diabetes mellitus without complications; E66.9 Obesity, unspecified; R01.1 Cardiac murmur, unspecified; F17.210 Nicotine dependence, cigarettes, uncomplicated; M96.1 Postlaminectomy syndrome, not elsewhere classified; M51.26 Other intervertebral disc displacement, lumbar region; Z79.82 Long term (current) use of aspirin; Z79.84 Long term (current) use of oral hypoglycemic drugs; Z83.3 Family history of diabetes mellitus; Z82.49 Family history of ischemic heart disease and other diseases of the circulatory system; Z95.0 Presence of cardiac pacemaker; Z79.01 Long term (current) use of anticoagulants; I25.2 Old myocardial infarction; Z68.30 Body mass index [BMI] 30.0-30.9, adult; Z79.899 Other long term (current) drug therapy

== ENCOUNTER → 2017-03-25 | Outpatient (CLI) | payer MEDICARE, OTHER ==
[~2017-03-25] MED LIST changes: +ASPI1TAB15 PO; -ASPI81TA7 PO; -ATOR1TAB18 PO; +ATOR80TA59 PO; +DIAZ5TAB PO; +GABA-283 PO; +LIDO5TD TD; +METF-808 PO; -METF1000 PO; +METF10004 PO; -METF500T PO; +METF500T13 PO; -METO100T PO; +METO100T5 PO; +OXYC-517 PO; +OXYC15TA76 PO; +OXYCO5TA PO; +VITA1CAP40 PO; -VITA50003 PO
--- NOTE | 2017-04-04 23:50 | ECWPNPC ---
PATIENT NAME: HUGH PIERRE : 1945 GENDER: MALE VISIT DATE: 03/25/2017 DISCHARGE DATE: 03/25/17740 VISIT LOCKED DATE TIME: PHYSICIAN: SANTANA CARTWRIGHT RESOURCE: SANTANA CARTWRIGHT REASON FOR APPOINTMENT 1. INPATIENT-PSYCHIATRIC HISTORY OF PRESENT ILLNESS HISTORY OF PRESENT ILLNESS: PAIN THE PATIENT DESCRIBES THE PAIN... FALL RISK SCREENING: SCREENING :NO FALLS IN THE PAST YEAR CURRENT MEDICATIONS TAKING ATORVASTATIN CALCIUM 80 MG TABLET 1 TABLET ORALLY ONCE A DAY, NOTES: 03/24/172099 TAKING LANCETS 28G MISCELLANEOUS DIRECTED TAKING METOPROLOL TARTRATE 100 MG TABLET 1 TABLET ORALLY TWICE A DAY, NOTES: 03/25/17 08 TAKING OMEPRAZOLE 20 MG TABLET DELAYED RELEASE 1 TABLET ORALLY ONCE A DAY, NOTES: 03/25/17 08 TAKING TERAZOSIN HCL 1 MG CAPSULE 1 CAPSULE ORALLY ONCE A DAY, NOTES: 03/24/17 09--2099 TAKING DABIGATRAN ETEXILATE MESYLATE 150 MG CAPSULE 1 CAPSULE ORALLY TWICE A DAY TAKING GABAPENTIN 400 MG CAPSULE 1 TABLET ORALLY THREE TIMES A DAY, NOTES: 03/25/17 08 TAKING MULTAQ 400 MG TABLET 1 TABLET WITH MEALS ORALLY TWICE A DAY TAKING POTASSIUM CHLORIDE 20 MEQ PACKET 1 PACKET WITH FOOD ORALLY ONCE A DAY, NOTES: 03/24/172099 TAKING OXYCODONE HCL 10 MG TABLET 1 TABLET NEEDED ORALLY Q 12 HOURS, NOTES: 03/24/17 0830 TAKING ASPIRIN ADULT LOW DOSE 81 MG TABLET DELAYED RELEASE 1 TABLET ORALLY ONCE A DAY, NOTES: 03/25/17 0800 TAKING KETOROLAC TROMETHAMINE 15 MG/ML SOLUTION 1 ML NEEDED IV EVERY 6 HRS NEEDED, NOTES: 03/25/17 0300 TAKING LIDOCAINE & ADHESIVE SHEET 5 % KIT EXTERNALLY , NOTES: 03/24/17 OFF AT 2100 TAKING CYCLOBENZAPRINE HCL 10 MG TABLET 1 TABLET NEEDED ORALLY THREE TIMES A DAY, NOTES: 03/24/17 1900 TAKING DIAZEPAM 5 MG TABLET 1 TABLET NEEDED ORALLY Q 8 HOURS NEEDED, NOTES: 03/25/17 0330 TAKING XARELTO 20 MG TABLET 1 TABLET WITH FOOD ORALLY ONCE A DAY, NOTES: 03/23/172099 NOT-TAKING AMITRIPTYLINE & DIET MANAGE CT 25 MG MISCELLANEOUS DIRECTED ORALLY NOT-TAKING AMLODIPINE 10 MG TABLET ORAL NOT-TAKING CITALOPRAM HYDROBROMIDE 40 MG TABLET 0.5 TABLET ORALLY ONCE A DAY NOT-TAKING ERGOCALCIFEROL 27154 UNIT CAPSULE 1 CAPSULE ORALLY NOT-TAKING GEMFIBROZIL 600 MG TABLET 1 TABLET ORALLY TWICE A DAY NOT-TAKING GLIPIZIDE 5 MG TABLET 1 TABLET ORALLY ONCE A DAY NOT-TAKING HYDROCHLOROTHIAZIDE 50 MG TABLET 1 TABLET ORALLY ONCE A DAY NOT-TAKING LISINOPRIL 40 40 MG TABLET DIRECTED ORAL NOT-TAKING NAPROXEN 500 MG TABLET DELAYED RELEASE 1 TABLET ORALLY TWICE A DAY NOT-TAKING SILDENAFIL CITRATE 50 MG TABLET 1 TABLET NEEDED ORALLY ONCE A DAY PAST MEDICAL HISTORY HEMATURIA DM HTN GERD HYPERLIPIDEMIA ARTHRITIS LEFT KNEE A-FIB - S/P CARDIAC ABLATION CARDIAC STENTS IN PLACE 12/17/05 GA 10/2005,06/15/2009 ALLERGIES N.K.D.A. SURGICAL HISTORY ATHEROSCOPIC LEFT KNEE X BACK 1976 CARDIAC STENTS 12/17/05 CARDIAC CATH WITH ABLATION 06/17/09 HOSPITALIZATION/MAJOR DIAGNOSTIC PROCEDURE MYOCARDIAL INFARCTION SURGICAL RELATED A-FIB 10/2013 REVIEW OF SYSTEMS REVIEWED BY: PROVIDER: . CONSTITUTIONAL: ANY CHANGE IN YOUR MEDICAL CONDITION? NO . CHILLS NO . FEVER NO . INFECTION: DO YOU HAVE NEW INFECTIONS? NO . DO YOU HAVE HISTORY OF MRSA? NO . MUSCULOSKELETAL: ANY NEW PATTERNS OF PAIN OR NUMBNESS? YES . GASTROENTEROLOGY: ANY NEW CHANGE IN BOWEL CONTROL? NO . GENITOURINARY: ANY NEW CHANGE IN BLADDER CONTROL? NO . IS THERE A CHANCE YOU COULD BE ? NO . HEMATOLOGY/LYMPH: DO YOU TAKE ANY BLOOD THINNERS? (FOR EXAMPLE- COUMADIN, PLAVIX, AGGRENOX, PLATEL, PRADAXA, OR XARELTO) NO . WHEN WAS YOUR LAST DOSE? DATE: TIME: . NEUROLOGY: HAVE YOU FALLEN IN THE PAST 6 MONTHS? YES . ANY NEW EXTREMITY NUMBNESS OR WEAKNESS? NO . CARDIOLOGY: DO YOU HAVE A PACEMAKER OR DEFIBRILLATOR? YES, PACEMAKER . RESPIRATORY: HAVE YOU BEEN SICK IN THE PAST WEEK? NO . FEVER NO . FLU LIKE SYMPTOMS? NO . COUGH NO . INTEGUMENTARY: DO YOU HAVE ANY RASHES OR OPEN SORES? NO . ALLERGIC/IMMUNO: ARE YOU ALLERGIC TO SHELLFISH OR IV DYE? NO . ANY NEW ALLERGIES? NO . PSYCHIATRIC: DO YOU HAVE THOUGHTS OF HURTING YOURSELF OR SOMEONE ELSE? NO . ARE YOU ABUSED, NEGLECTED, OR IN AN UNSAFE ENVIRONMENT? NO . ENDOCRINOLOGY: ARE YOU DIABETIC? YES . OTHER: DO YOU NEED ANY PRESCRIPTIONS? NO . IF YES, PLEASE LIST: ____ . ANY NEW PROBLEMS WITH YOUR MEDICATIONS? NO . WHEN DID YOU LAST EAT? 03/24/17@DINNER . WHEN DID YOU LAST DRINK? 03/25/17@1100 . WHAT DID YOU LAST DRINK? WATER . NAME OF PERSON DRIVING YOU HOME? PT IS AN INPT . DO YOU HAVE ANY OTHER QUESTIONS OR CONCERNS NO . VITAL SIGNS WT 275.0 LBS, HT 70", BMI 39.45 INDEX, BP 155/69 MM HG, HR 62 /MIN, RR 18 /MIN, TEMP 97.6 F, OXYGEN SAT % 94%, NA INITIALS TL 1334PATIENT STATED WEIGHT- TL. ASSESSMENTS SACROILIITIS, NOT ELSEWHERE CLASSIFIED - M46.1 (PRIMARY) PROCEDURES PN SI PRE PROCEDURE DIAGNOSIS SACROILIITIS, SACROILIAC JOINT DYSFUNCTION POST PROCEDURE DIAGNOSIS SACROILIITIS, SACROILIAC JOINT DYSFUNCTION PROCEDURE LEFT SACROILIAC JOINT BLOCK SURGEON DR. SANTANA CARTWRIGHT LADDER OPERATOR NONE ANESTHESIA LOCAL PRE PROCEDURE NOTE PATIENT WITH HISTORY OF CHRONIC LOW BACK PAIN. I EVALUATED THE PATIENT AND REVIEWED THE CHART. I WENT OVER THE RISKS, ALTERNATIVES, AND BENEFITS ASSOCIATED WITH THIS PROCEDURE. THE PATIENT WOULD LIKE TO PROCEED AND GAVE CONSENT TO PERFORM THE PROCEDURE. THE PATIENT DENIES UNEXPLAINABLE WEIGHT LOSS, FEVER, CHILLS, OR NEW CHANGES IN URINARY OR BOWEL CONTROL DESCRIPTION OF PROCEDURE THE PATIENT WAS BROUGHT TO THE PROCEDURE ROOM AND PLACED IN THE PRONE POSITION. THE LUMBOSACRAL AREA WAS CLEANED WITH CHLORAPREP SOLUTION AND DRAPED ASEPTICALLY. THE PROCEDURE WAS DONE UNDER STERILE CONDITIONS. I CHECKED LATERALITY AND THE LEVEL WHERE THE PROCEDURE WAS GOING TO BE PERFORMED WITH THE PATIENT AND THE SUPPORTING STAFF AT THE MOMENT OF THE TIME OUT IN THE PROCEDURE ROOM. UNDER FLUOROSCOPIC GUIDANCE, TARGET POINT WAS SELECTED AT THE LOWER BORDER OF THE LEFT SACROILIAC JOINT. TARGET POINT WAS SELECTED AFTER MEDIAL ROTATION AND TILT OF THE MAGNIFIER OF THE C-ARM. LIDOCAINE WAS USED TO NUMB THE SKIN AND SUBCUTANEOUS TISSUE BELOW IT. A SPINAL NEEDLE, 22-GAUGE, WAS ADVANCED UNDER FLUOROSCOPIC GUIDANCE AND FOLLOWING PATIENT FEEDBACK UNTIL THE TARGET AREA WAS TOUCHED. THE POSITION OF THE NEEDLE WAS VERIFIED WITH AP AND LATERAL VIEWS. AFTER PROPER POSITION OF THE NEEDLE WAS ACHIEVED, ISOVUE M DYE 30%, 0.25 ML, WAS INJECTED SHOWING SPREAD OF THE DYE. THEN, A SOLUTION OF 20 MG OF KENALOG WAS INJECTED IN RIGHT JOINT WITH 3 ML OF BUPIVACAINE 0.125%. THERE WAS NO EVIDENCE OF BLOOD, PARESTHESIA OR CEREBROSPINAL FLUID DURING THE PROCEDURE. THE PATIENT WAS SENT TO THE RECOVERY ROOM. THE PATIENT WAS MOVING THE EXTREMITIES AND DOING WELL. THERE WAS NO COMPLICATION DURING THE PROCEDURE. FLUOROSCOPY TIME WAS 24 SECONDS POST PROCEDURE NOTE THE PATIENT WILL BE SEEN IN A FOLLOW UP IN THE NEXT FEW WEEKS. INSTRUCTIONS WERE GIVEN, QUESTIONS WERE ANSWERED, AND THE PATIENT EXPRESSED UNDERSTANDING AND AGREED WITH THE PLAN. I, OWEN CHEEMA, DOCUMENTED THE ABOVE INFORMATION ACTING A SCRIBE FOR DR. CARTWRIGHT. I HAVE REVIEWED THE ABOVE DOCUMENT, WRITTEN BY OWEN SIMMS AND I VERIFY THAT IT IS ACCURATE DIAGNOSTIC IMAGING [facility] FLUORO GUIDANCE (PAIN)[id number] PROCEDURE CODES 53098 INJECT SACROILIAC JOINT 6045F RADXPS IN END [id number] PXD DISPOSITION & COMMUNICATION FOLLOW UP 3 WEEKS ELECTRONICALLY SIGNED BY SANTANA CARTWRIGHT MD ON 04/04/2017 AT 10:51 AM EDT DISCLAIMER : THIS IS A VISIT SUMMARY EXTRACTED FROM THE [employer] CHART. IT IS NOT A COPY OF THE [employer] PROGRESS NOTE. BRENDA
== END | disposition home or self-care (01) ==
LOC: M PAIN 13:00
PROVIDERS: ATTEND Anesthesiology
DX: G89.29 Other chronic pain (principal); M46.1 Sacroiliitis, not elsewhere classified; E11.9 Type 2 diabetes mellitus without complications; I10 Essential (primary) hypertension; K21.9 Gastro-esophageal reflux disease without esophagitis; E78.5 Hyperlipidemia, unspecified; M17.12 Unilateral primary osteoarthritis, left knee; I48.91 Unspecified atrial fibrillation; Z95.5 Presence of coronary angioplasty implant and graft; I25.2 Old myocardial infarction; Z79.899 Other long term (current) drug therapy; Z79.84 Long term (current) use of oral hypoglycemic drugs; Z79.82 Long term (current) use of aspirin; Z79.01 Long term (current) use of anticoagulants

== ENCOUNTER → 2017-04-18 | Outpatient (REF) | payer MEDICARE ==
[2017-04-18 15:45] LABS: INR 1.25
== END ==
LOC: M LABDRAW1 13:57
PROVIDERS: ATTEND Physical Medicine & Rehabilitation
DX: M47.27 Other spondylosis with radiculopathy, lumbosacral region (principal); Z79.01 Long term (current) use of anticoagulants

== ENCOUNTER 2017-04-29 10:14 | Emergency (ER) | payer OTHER, MEDICARE ==
[~2017-04-29] VITALS: Ht 180.3 cm; Wt 122.7 kg
[~2017-04-29 10:14] MED LIST changes: -METF-808 PO
[2017-04-29] MEDS ORDERED: METF-808 PO (10:26)
--- NOTE | 2017-04-29 10:54 | ED PDOC ---
Post-Departure Follow-Up PT IN EXAM ROOM REQUESTING REFERRAL TO THE PAIN MANAGEMENT CLINIC AND ASKING THIS PLASTER APPLICATOR TO, "GET A DOCTOR DOWN HERE THAT CAN GIVE ME A REFERRAL IF YOU CAN' T." EXPLAINED MULTIPLE TIMES THAT WE CANNOT GIVE REFERRALS OR PRIOR AUTHORIZATIONS THROUGH THE ER FOR SPECIALISTS AND THAT IS NEEDS TO COME FROM HIS PCP. [facility] REFUSES TO GIVE HIM A REFERRAL TO PAIN MANAGEMENT. PT ALSO SEES [facility] AND STATES THEY WILL NOT GIVE HIM ONE EITHER. YENI CERRATO PA-C Apr 29, 2017 10:54
[2017-04-29] MEDS ORDERED: methylPREDNISolone INJ 125 MG/2 ML VIAL (J2930) IM ONE (11:00)
[2017-04-29] MEDS ORDERED: GABAPENTIN 300 MG CAP PO ONE (11:00)
[2017-04-29 11:30] VITALS: BP 116/79
[2017-04-29] MEDS ORDERED: GABA-282 PO (11:41)
== END 2017-04-29 11:55 | disposition home or self-care (01) ==
LOC: M ED 10:14
DX: M54.32 Sciatica, left side (principal); G89.29 Other chronic pain; E11.9 Type 2 diabetes mellitus without complications; I25.2 Old myocardial infarction; F43.10 Post-traumatic stress disorder, unspecified; F17.210 Nicotine dependence, cigarettes, uncomplicated; Z95.0 Presence of cardiac pacemaker; Z95.5 Presence of coronary angioplasty implant and graft; Z79.891 Long term (current) use of opiate analgesic; Z79.899 Other long term (current) drug therapy
CPT/HCPCS: 96372; 99282; J2930; J3360

== ENCOUNTER 2017-10-29 19:25 | Inpatient (IN) | payer MEDICARE, OTHER ==
[2017-10-29] MEDS: TERAZOSIN 1 MG CAP PO (01:17)
[2017-10-29] MEDS: NS 1,000 ML IV (04:45)
[2017-10-29] MEDS: PANTOPRAZOLE 40MG INJ (PROTONIX) (C9113) IV (20:30)
[2017-10-29] MEDS: OCTREOTIDE ACETATE 1,200 MCG in NS 238.8 ML IV (20:30)
[2017-10-29 20:49] LABS: ALBUMIN 3.5 GM/DL (3.2-5.2); ALBUMIN/GLOBULIN RATIO 1.17 (1.00-1.93); ALKALINE PHOSPHATASE 62 U/L (45-117); ALT/SGPT 10 U/L (12-78); ANION GAP 9 MEQ/L (8-16); AST/SGOT 8 U/L (7-37); BASO # 0.1 10^3/uL (0.0-0.2); BASO % 0.4 % (0.0-1.0); BILIRUBIN,DIRECT 0.2 MG/DL (0.0-0.2); BILIRUBIN,TOTAL 0.9 MG/DL (0.2-1.0); BLOOD UREA NITROGEN 16 MG/DL (7-18); CALCIUM LEVEL 8.6 MG/DL (8.8-10.2); CARBON DIOXIDE LEVEL 27 MEQ/L (21-32); CHLORIDE LEVEL 105 MEQ/L (98-107); CREATININE FOR GFR 0.94 MG/DL (0.70-1.30); EOS # 0.1 10^3/uL (0.0-0.50); EOS % 0.8 % (0.0-3.0); GLOMERULAR FILTRATION RATE > 60.0 (>49); GLUCOSE, FASTING 138 MG/DL (80-110); HEMATOCRIT 22.7 % (42.0-52.0); IMMATURE GRANULOCYTE # 0.1 10^3/uL (0-0); IMMATURE GRANULOCYTE % 0.5 % (0-0); LIPASE 113 U/L (73-393); LYMPH # 1.5 10^3/uL (1.5-4.5); LYMPH % 10.3 % (24.0-44.0); MEAN CORPUSCULAR HGB CONC 28.6 g/dl (32.0-36.5); MEAN CORPUSCULAR VOLUME 73.5 fl (80.0-96.0); MONO % 6.8 % (0.0-5.0); NEUTROPHILS # 11.7 10^3/uL (1.8-7.7); NEUTROPHILS % 81.2 % (36.0-66.0); PLATELET COUNT, AUTOMATED 304 10^3/uL (150-450); POTASSIUM SERUM 3.6 MEQ/L (3.5-5.1); RED BLOOD COUNT 3.09 10^6/uL (4.30-6.10); RED CELL DISTRIBUTION WIDTH 18.6 % (11.5-14.5); SODIUM LEVEL 141 MEQ/L (136-145); TOTAL PROTEIN 6.5 GM/DL (6.4-8.2); WHITE BLOOD COUNT 14.4 10^3/uL (4.0-10.0)
[2017-10-29 20:57] LABS: HEMOGLOBIN 6.5 g/dl (14.0-18.0)
[2017-10-29] MEDS: ACETAMINOPHEN TAB 650MG DOSE (2X325MG) PO (21:00)
[2017-10-29 21:04] LABS: INR 1.52; PROTHROMBIN TIME 18.7 SECONDS (12.4-14.5)
[2017-10-29 21:37] LABS: TROPONIN I < 0.02 NG/ML (< 0.10)
[2017-10-29 21:56] LABS: CK-MB VALUE MASS 1.5 NG/ML (0.0-3.6); CPK CREATINE PHOSPHOKINASE 46 U/L (39-308); MB/CK RELATIVE INDEX 3.26 (< OR =4)
[2017-10-29] MEDS ORDERED: ISOVUE-370 76% 100ML VIAL (Q9967) As Ordered (22:27)
[2017-10-29 22:52] LABS: IMMEDIATE SPIN CROSSMATCH 1 2
[2017-10-29] MEDS ORDERED: GLUCAGON FOR INJ 1 MG VIAL (J1610) SC (23:45)
[2017-10-29] MEDS ORDERED: ONDANSETRON 4MG/2ML VIAL (J2405) IV (23:45)
[2017-10-29] MEDS ORDERED: DEXTROSE 50% 50 ML SYRINGE IV (23:45)
[2017-10-29] MEDS ORDERED: GLUCOSE 4 GM CHEW TABLET PO (23:45)
[2017-10-30] MEDS: CIPROFLOXACIN 400 MG in APPROPRIATE DILUENT 1 EA IV (00:37)
[2017-10-30] MEDS ORDERED: ACETAMINOPHEN TAB 650MG DOSE (2X325MG) PO (00:45)
[2017-10-30 00:48] LABS: BEDSIDE GLUCOSE 128 MG/DL (80-115)
[2017-10-30] MEDS: METOPROLOL TARTRATE 100 MG TAB PO ×3 (01:13→20:44)
[2017-10-30] MEDS: HumaLOG INSULIN (NovoLOG) PER UNIT SC ×4 (01:14→18:29)
[2017-10-30] MEDS: PANTOPRAZOLE SODIUM 40 MG in D5W 50 ML IV ×5 (02:34→22:00)
[2017-10-30 06:12] LABS: BASO # 0.1 10^3/uL (0.0-0.2); BASO % 0.5 % (0.0-1.0); EOS # 0.4 10^3/uL (0.0-0.50); EOS % 3.7 % (0.0-3.0); HEMATOCRIT 24.2 % (42.0-52.0); HEMOGLOBIN 7.4 g/dl (14.0-18.0); IMMATURE GRANULOCYTE % 0.3 % (0-0); LYMPH % 25.1 % (24.0-44.0); MEAN CORPUSCULAR HGB CONC 30.6 g/dl (32.0-36.5); MEAN CORPUSCULAR VOLUME 75.2 fl (80.0-96.0); MONO # 1.3 10^3/uL (0.0-0.8); MONO % 11.4 % (0.0-5.0); NEUTROPHILS # 6.9 10^3/uL (1.8-7.7); PLATELET COUNT, AUTOMATED 252 10^3/uL (150-450); RED BLOOD COUNT 3.22 10^6/uL (4.30-6.10); RED CELL DISTRIBUTION WIDTH 18.5 % (11.5-14.5); WHITE BLOOD COUNT 11.8 10^3/uL (4.0-10.0)
[2017-10-30 06:14] LABS: BEDSIDE GLUCOSE 120 MG/DL (80-115)
[2017-10-30 06:28] LABS: IMMEDIATE SPIN CROSSMATCH 1 4
[2017-10-30 06:37] LABS: ANION GAP 5 MEQ/L (8-16); BLOOD UREA NITROGEN 16 MG/DL (7-18); CALCIUM LEVEL 8.3 MG/DL (8.8-10.2); CARBON DIOXIDE LEVEL 31 MEQ/L (21-32); CHLORIDE LEVEL 105 MEQ/L (98-107); CREATININE FOR GFR 0.82 MG/DL (0.70-1.30); GLOMERULAR FILTRATION RATE > 60.0 (>49); GLUCOSE, FASTING 107 MG/DL (80-110); POTASSIUM SERUM 3.5 MEQ/L (3.5-5.1); SODIUM LEVEL 141 MEQ/L (136-145)
[2017-10-30] MEDS: OMEPRAZOLE 20 MG CAP PO (08:38)
[2017-10-30] MEDS: hydroCHLOROthiazide 25 MG TAB PO (08:39)
[2017-10-30] MEDS: NS 1,000 ML IV ×2 (10:24→23:37)
[2017-10-30 10:56] LABS: HEMOGLOBIN 8.6 g/dl (14.0-18.0)
[2017-10-30] MEDS ORDERED: PANTOPRAZOLE 40MG INJ (PROTONIX) (C9113) As Ordered (11:25)
[2017-10-30 12:11] LABS: HEMATOCRIT 27.9 % (42.0-52.0); HEMOGLOBIN 8.6 g/dl (14.0-18.0)
[2017-10-30 12:13] LABS: BEDSIDE GLUCOSE 123 MG/DL (80-115)
[2017-10-30] MEDS ORDERED: ALBUTEROL SULFATE 2.5 MG/0.5 ML INH NEB SOLN As Ordered (16:11)
[2017-10-30] MEDS: ALBUTEROL SULFATE 2.5 MG/0.5 ML INH NEB SOLN INH (16:15)
[2017-10-30] MEDS ORDERED: PROPOFOL 200 MG/20 ML VIAL As Ordered ×2 (17:07)
[2017-10-30] MEDS ORDERED: LIDOCAINE 2% INJ 100 MG/5 ML SDV (FOR ANES.) As Ordered (17:08)
[2017-10-30 18:18] LABS: HEMATOCRIT 29.8 % (42.0-52.0); HEMOGLOBIN 9.1 g/dl (14.0-18.0)
[2017-10-30 18:27] LABS: BEDSIDE GLUCOSE 104 MG/DL (80-115)
[2017-10-30] MEDS: LR 1,000 ML IV (18:29)
[2017-10-30] MEDS: TERAZOSIN 1 MG CAP PO (18:35)
[2017-10-30] MEDS: oxyCODONE 5MG TAB PO (18:44)
[2017-10-30 23:57] LABS: HEMATOCRIT 27.5 % (42.0-52.0); HEMOGLOBIN 8.3 g/dl (14.0-18.0)
[2017-10-31 00:37] LABS: BEDSIDE GLUCOSE 112 MG/DL (80-115)
[2017-10-31] MEDS: PANTOPRAZOLE SODIUM 40 MG in D5W 50 ML IV ×2 (03:49→05:45)
[2017-10-31] MEDS: oxyCODONE 5MG TAB PO ×2 (04:43→19:38)
[2017-10-31] MEDS ORDERED: IPRATROPIUM 0.5MG/ALBUTEROL 2.5MG INH SOL UD 3ML (DUONEB)(J7620) NEB (05:30)
[2017-10-31 06:12] LABS: BEDSIDE GLUCOSE 164 MG/DL (80-115)
[2017-10-31] MEDS: HumaLOG INSULIN (NovoLOG) PER UNIT SC ×5 (06:28→20:59)
[2017-10-31 07:15] LABS: BASO # 0.1 10^3/uL (0.0-0.2); BASO % 0.6 % (0.0-1.0); EOS # 0.5 10^3/uL (0.0-0.50); EOS % 3.5 % (0.0-3.0); HEMOGLOBIN 8.1 g/dl (14.0-18.0); IMMATURE GRANULOCYTE # 0.1 10^3/uL (0-0); IMMATURE GRANULOCYTE % 0.5 % (0-0); LYMPH # 1.3 10^3/uL (1.5-4.5); LYMPH % 9.8 % (24.0-44.0); MEAN CORPUSCULAR HEMOGLOBIN 22.8 pg (27.0-33.0); MEAN CORPUSCULAR VOLUME 76.1 fl (80.0-96.0); MONO # 1.3 10^3/uL (0.0-0.8); MONO % 9.5 % (0.0-5.0); NEUTROPHILS % 76.1 % (36.0-66.0); PLATELET COUNT, AUTOMATED 244 10^3/uL (150-450); RED BLOOD COUNT 3.55 10^6/uL (4.30-6.10); RED CELL DISTRIBUTION WIDTH 18.6 % (11.5-14.5); WHITE BLOOD COUNT 13.2 10^3/uL (4.0-10.0)
[2017-10-31 07:39] LABS: ANION GAP 7 MEQ/L (8-16); BLOOD UREA NITROGEN 12 MG/DL (7-18); CALCIUM LEVEL 7.8 MG/DL (8.8-10.2); CARBON DIOXIDE LEVEL 28 MEQ/L (21-32); CHLORIDE LEVEL 108 MEQ/L (98-107); GLOMERULAR FILTRATION RATE > 60.0 (>49); GLUCOSE, FASTING 129 MG/DL (80-110); POTASSIUM SERUM 3.3 MEQ/L (3.5-5.1); SODIUM LEVEL 143 MEQ/L (136-145)
[2017-10-31] MEDS: IPRATROPIUM 0.5MG/ALBUTEROL 2.5MG INH SOL UD 3ML (DUONEB)(J7620) NEB ×3 (07:53→21:22)
[2017-10-31] MEDS: PANTOPRAZOLE 40MG TAB (PROTONIX) PO (08:39)
[2017-10-31] MEDS: hydroCHLOROthiazide 25 MG TAB PO (08:39)
[2017-10-31] MEDS: METOPROLOL TARTRATE 100 MG TAB PO ×2 (08:40→20:58)
[2017-10-31] MEDS ORDERED: GLUCAGON FOR INJ 1 MG VIAL (J1610) SC (09:15)
[2017-10-31] MEDS ORDERED: DEXTROSE 50% 50 ML SYRINGE IV (09:15)
[2017-10-31] MEDS ORDERED: GLUCOSE 4 GM CHEW TABLET PO (09:15)
[2017-10-31] MEDS: POTASSIUM CHLORIDE 10 MEQ SR TABLET PO (10:01)
[2017-10-31 12:10] LABS: HEMATOCRIT 26.9 % (42.0-52.0); HEMOGLOBIN 8.2 g/dl (14.0-18.0)
[2017-10-31 12:12] LABS: BEDSIDE GLUCOSE 93 MG/DL (80-115)
[2017-10-31 17:41] LABS: BEDSIDE GLUCOSE 111 MG/DL (80-115)
[2017-10-31 18:23] LABS: HEMATOCRIT 29.8 % (42.0-52.0); HEMOGLOBIN 8.8 g/dl (14.0-18.0)
[2017-10-31] MEDS: TERAZOSIN 1 MG CAP PO (19:39)
[2017-10-31 21:05] LABS: BEDSIDE GLUCOSE 114 MG/DL (80-115)
[2017-11-01] MEDS: IPRATROPIUM 0.5MG/ALBUTEROL 2.5MG INH SOL UD 3ML (DUONEB)(J7620) NEB ×2 (01:54→08:05)
[2017-11-01 07:45] LABS: BEDSIDE GLUCOSE 133 MG/DL (80-115)
[2017-11-01 07:54] LABS: BASO # 0.1 10^3/uL (0.0-0.2); BASO % 0.8 % (0.0-1.0); EOS # 0.4 10^3/uL (0.0-0.50); EOS % 3.4 % (0.0-3.0); HEMATOCRIT 27.6 % (42.0-52.0); HEMOGLOBIN 8.4 g/dl (14.0-18.0); IMMATURE GRANULOCYTE % 0.3 % (0-0); LYMPH # 2.1 10^3/uL (1.5-4.5); LYMPH % 17.3 % (24.0-44.0); MEAN CORPUSCULAR HEMOGLOBIN 23.4 pg (27.0-33.0); MEAN CORPUSCULAR HGB CONC 30.4 g/dl (32.0-36.5); MEAN CORPUSCULAR VOLUME 76.9 fl (80.0-96.0); MONO # 1.4 10^3/uL (0.0-0.8); MONO % 11.6 % (0.0-5.0); NEUTROPHILS % 66.6 % (36.0-66.0); PLATELET COUNT, AUTOMATED 228 10^3/uL (150-450); RED BLOOD COUNT 3.59 10^6/uL (4.30-6.10); RED CELL DISTRIBUTION WIDTH 19.3 % (11.5-14.5); WHITE BLOOD COUNT 11.9 10^3/uL (4.0-10.0)
[2017-11-01 08:10] LABS: ANION GAP 6 MEQ/L (8-16); BLOOD UREA NITROGEN 11 MG/DL (7-18); CALCIUM LEVEL 8.6 MG/DL (8.8-10.2); CARBON DIOXIDE LEVEL 28 MEQ/L (21-32); CHLORIDE LEVEL 107 MEQ/L (98-107); CREATININE FOR GFR 0.88 MG/DL (0.70-1.30); GLOMERULAR FILTRATION RATE > 60.0 (>49); GLUCOSE, FASTING 125 MG/DL (80-110); POTASSIUM SERUM 3.2 MEQ/L (3.5-5.1); SODIUM LEVEL 141 MEQ/L (136-145)
[2017-11-01] MEDS: HumaLOG INSULIN (NovoLOG) PER UNIT SC (08:13)
[2017-11-01] MEDS: PANTOPRAZOLE 40MG TAB (PROTONIX) PO (08:14)
[2017-11-01] MEDS: METOPROLOL TARTRATE 100 MG TAB PO (08:14)
[2017-11-01] MEDS: hydroCHLOROthiazide 25 MG TAB PO (08:14)
== END 2017-11-01 09:25 | disposition home or self-care (01) | DRG 300 ==
LOC: M ED 19:25 → M ED INP 23:12
PROVIDERS: Specialist
PROC: 0W3P8ZZ Control Bleeding in Gastrointestinal Tract, Via Natural or Artificial Opening Endoscopic (ICD-10-PCS; principal; 2017-10-30 10:56)
PROC: 30253N1 (ICD-10-PCS; 2017-10-30 16:39)
DX: Q27.33 Arteriovenous malformation of digestive system vessel (principal); I50.32 Chronic diastolic (congestive) heart failure; D62 Acute posthemorrhagic anemia; I11.0 Hypertensive heart disease with heart failure; E11.9 Type 2 diabetes mellitus without complications; K21.9 Gastro-esophageal reflux disease without esophagitis; N40.0 Benign prostatic hyperplasia without lower urinary tract symptoms; E78.5 Hyperlipidemia, unspecified; E87.6 Hypokalemia; I27.20 Pulmonary hypertension, unspecified; I48.91 Unspecified atrial fibrillation; F17.210 Nicotine dependence, cigarettes, uncomplicated; I25.10 Atherosclerotic heart disease of native coronary artery without angina pectoris; I35.1 Nonrheumatic aortic (valve) insufficiency; Z95.5 Presence of coronary angioplasty implant and graft; Z79.84 Long term (current) use of oral hypoglycemic drugs; Z79.899 Other long term (current) drug therapy; Z95.0 Presence of cardiac pacemaker; Z79.01 Long term (current) use of anticoagulants

== ENCOUNTER 2018-06-04 10:15 | Day surgery (SDC) | payer MEDICARE ==
[2018-06-04] MEDS: NS 1,000 ML IV (10:30)
[2018-06-04] MEDS ORDERED: PROPOFOL 500 MG/50 ML VIAL As Ordered (12:43)
[2018-06-04] MEDS ORDERED: LIDOCAINE 2% INJ 100 MG/5 ML SDV (FOR ANES.) As Ordered (12:43)
== END 2018-06-04 13:55 | disposition home or self-care (01) ==
LOC: M OPP 10:15
DX: Z12.11 Encounter for screening for malignant neoplasm of colon (principal); Z86.010 Personal history of colon polyps; D12.3 Benign neoplasm of transverse colon; D12.2 Benign neoplasm of ascending colon; K64.0 First degree hemorrhoids; K57.30 Diverticulosis of large intestine without perforation or abscess without bleeding; I48.91 Unspecified atrial fibrillation; I25.10 Atherosclerotic heart disease of native coronary artery without angina pectoris; Z95.5 Presence of coronary angioplasty implant and graft; I35.9 Nonrheumatic aortic valve disorder, unspecified; I25.2 Old myocardial infarction; R01.1 Cardiac murmur, unspecified; I10 Essential (primary) hypertension; E78.5 Hyperlipidemia, unspecified; Z95.0 Presence of cardiac pacemaker; E11.9 Type 2 diabetes mellitus without complications; M10.9 Gout, unspecified; E55.9 Vitamin D deficiency, unspecified; Z87.19 Personal history of other diseases of the digestive system; E66.9 Obesity, unspecified; G62.9 Polyneuropathy, unspecified; R06.02 Shortness of breath; M19.90 Unspecified osteoarthritis, unspecified site; M54.9 Dorsalgia, unspecified; F10.21 Alcohol dependence, in remission; F32.9 Major depressive disorder, single episode, unspecified; F43.10 Post-traumatic stress disorder, unspecified; J44.9 Chronic obstructive pulmonary disease, unspecified; F17.210 Nicotine dependence, cigarettes, uncomplicated; Z79.84 Long term (current) use of oral hypoglycemic drugs; Z79.899 Other long term (current) drug therapy; Z79.01 Long term (current) use of anticoagulants; Z80.0 Family history of malignant neoplasm of digestive organs; Z83.71 Family history of colonic polyps
CPT/HCPCS: 45385

== ENCOUNTER 2018-06-16 11:01 | Inpatient (IN) | payer MEDICARE ==
[2018-06-16 12:10] LABS: HEMATOCRIT 45.4 % (42.0-52.0); HEMOGLOBIN 15.1 g/dl (13.5-17.5); MEAN CORPUSCULAR HEMOGLOBIN 31.1 pg (27.0-33.0); MEAN CORPUSCULAR HGB CONC 33.3 g/dl (32.0-36.5); MEAN CORPUSCULAR VOLUME 93.4 fl (80.0-96.0); PLATELET COUNT, AUTOMATED 196 10^3/uL (150-450); RED BLOOD COUNT 4.86 10^6/uL (4.30-6.10); WHITE BLOOD COUNT 9.9 10^3/uL (4.0-10.0)
[2018-06-16 12:13] LABS: INR 1.62; PROTHROMBIN TIME 19.5 SECONDS (12.1-14.4)
[2018-06-16 12:14] LABS: PARTIAL THROMBOPLASTIN TIME 33.2 SECONDS (25.4-37.6)
[2018-06-16] MEDS: PANTOPRAZOLE 40MG INJ (PROTONIX) (C9113) IV (12:24)
[2018-06-16 12:26] LABS: ALBUMIN 3.6 GM/DL (3.2-5.2); ALBUMIN/GLOBULIN RATIO 1.03 (1.00-1.93); ALKALINE PHOSPHATASE 55 U/L (45-117); ALT/SGPT 16 U/L (12-78); ANION GAP 7 MEQ/L (8-16); AST/SGOT 14 U/L (7-37); BILIRUBIN,DIRECT 0.4 MG/DL (0.0-0.2); BILIRUBIN,TOTAL 1.7 MG/DL (0.2-1.0); BLOOD UREA NITROGEN 13 MG/DL (7-18); CALCIUM LEVEL 9.3 MG/DL (8.8-10.2); CARBON DIOXIDE LEVEL 27 MEQ/L (21-32); CHLORIDE LEVEL 107 MEQ/L (98-107); CREATININE FOR GFR 0.98 MG/DL (0.70-1.30); GLOMERULAR FILTRATION RATE > 60.0 (>42); GLUCOSE, FASTING 100 MG/DL (70-100); LIPASE 105 U/L (73-393); POTASSIUM SERUM 3.8 MEQ/L (3.5-5.1); SODIUM LEVEL 141 MEQ/L (136-145); TOTAL PROTEIN 7.1 GM/DL (6.4-8.2)
[2018-06-16 16:29] LABS: HEMATOCRIT 44.3 % (42.0-52.0); HEMOGLOBIN 14.8 g/dl (13.5-17.5)
[2018-06-16] MEDS: NS 1,000 ML IV (18:00)
[2018-06-16] MEDS ORDERED: ONDANSETRON 4MG/2ML VIAL (J2405) IV (18:15)
[2018-06-16] MEDS: PANTOPRAZOLE SODIUM 40 MG in D5W 50 ML IV ×2 (18:15→22:11)
[2018-06-16] MEDS: D5W/0.9% SODIUM CHLORIDE 1,000 ML IV (19:00)
[2018-06-16] MEDS ORDERED: ONDANSETRON 4 MG TAB (S0181) PO (19:15)
[2018-06-16] MEDS ORDERED: OMEPRAZOLE 20 MG CAP PO (21:00)
[2018-06-16] MEDS: METOPROLOL TART 50 MG TAB PO (22:03)
[2018-06-16] MEDS: MORPHINE 4 MG/ML 1ML VIAL/SYRINGE (J2270) IV (22:04)
[2018-06-16] MEDS: TERAZOSIN 1 MG CAP PO (22:12)
[2018-06-17] MEDS: MORPHINE 4 MG/ML 1ML VIAL/SYRINGE (J2270) IV (02:52)
[2018-06-17] MEDS: D5W/0.9% SODIUM CHLORIDE 1,000 ML IV ×2 (05:21→19:20)
[2018-06-17 05:42] LABS: BASO % 0.4 % (0.0-1.0); EOS # 0.3 10^3/uL (0.0-0.50); EOS % 2.5 % (0.0-3.0); HEMATOCRIT 40.4 % (42.0-52.0); HEMOGLOBIN 13.2 g/dl (13.5-17.5); IMMATURE GRANULOCYTE % 0.3 % (0-3.0); LYMPH # 1.5 10^3/uL (1.5-4.5); LYMPH % 13.8 % (24.0-44.0); MEAN CORPUSCULAR HEMOGLOBIN 30.7 pg (27.0-33.0); MEAN CORPUSCULAR HGB CONC 32.7 g/dl (32.0-36.5); MONO # 1.3 10^3/uL (0.0-0.8); MONO % 12.1 % (0.0-5.0); NEUTROPHILS # 7.8 10^3/uL (1.8-7.7); NEUTROPHILS % 70.9 % (36.0-66.0); PLATELET COUNT, AUTOMATED 172 10^3/uL (150-450); RED CELL DISTRIBUTION WIDTH 13.1 % (11.5-14.5)
[2018-06-17 06:21] LABS: ALKALINE PHOSPHATASE 47 U/L (45-117); ALT/SGPT 13 U/L (12-78); ANION GAP 8 MEQ/L (8-16); AST/SGOT 6 U/L (7-37); BILIRUBIN,TOTAL 1.1 MG/DL (0.2-1.0); BLOOD UREA NITROGEN 14 MG/DL (7-18); CALCIUM LEVEL 8.1 MG/DL (8.8-10.2); CARBON DIOXIDE LEVEL 25 MEQ/L (21-32); CHLORIDE LEVEL 109 MEQ/L (98-107); GLOMERULAR FILTRATION RATE > 60.0 (>42); GLUCOSE, FASTING 100 MG/DL (70-100); MAGNESIUM LEVEL 1.2 MG/DL (1.8-2.4); POTASSIUM SERUM 3.3 MEQ/L (3.5-5.1); SODIUM LEVEL 142 MEQ/L (136-145)
[2018-06-17] MEDS: POTASSIUM CHLORIDE 10 MEQ SR TABLET PO ×2 (07:31→15:45)
[2018-06-17] MEDS: MAG SULF 1GM/100ML (MAG RUN) 1 GM in APPROPRIATE DILUENT 1 EA IV ×2 (07:32→15:46)
[2018-06-17] MEDS: PANTOPRAZOLE 40MG INJ (PROTONIX) (C9113) IV ×2 (08:50→20:22)
[2018-06-17] MEDS: METOPROLOL TART 50 MG TAB PO ×2 (08:50→20:22)
[2018-06-17] MEDS: DYAZIDE 37.5/25 CAP (TRIAM/HCTZ) PO (08:50)
[2018-06-17] MEDS: ATORVASTATIN 20 MG TAB PO (08:50)
[2018-06-17 13:09] LABS: MAGNESIUM LEVEL 1.6 MG/DL (1.8-2.4)
[2018-06-17 13:09] LABS: POTASSIUM SERUM 3.7 MEQ/L (3.5-5.1)
[2018-06-17] MEDS: TERAZOSIN 1 MG CAP PO (20:23)
[2018-06-17] MEDS: LOPERAMIDE 2 MG CAP PO (20:41)
[2018-06-18] MEDS: LOPERAMIDE 2 MG CAP PO (04:22)
[2018-06-18 05:31] LABS: BASO # 0.1 10^3/uL (0.0-0.2); BASO % 0.5 % (0.0-1.0); EOS # 0.3 10^3/uL (0.0-0.50); EOS % 2.4 % (0.0-3.0); HEMATOCRIT 39.4 % (42.0-52.0); HEMOGLOBIN 13.3 g/dl (13.5-17.5); IMMATURE GRANULOCYTE % 0.3 % (0-3.0); LYMPH # 1.6 10^3/uL (1.5-4.5); LYMPH % 14.1 % (24.0-44.0); MEAN CORPUSCULAR HEMOGLOBIN 31.3 pg (27.0-33.0); MEAN CORPUSCULAR HGB CONC 33.8 g/dl (32.0-36.5); MEAN CORPUSCULAR VOLUME 92.7 fl (80.0-96.0); MONO # 1.4 10^3/uL (0.0-0.8); MONO % 13.1 % (0.0-5.0); NEUTROPHILS # 7.7 10^3/uL (1.8-7.7); NEUTROPHILS % 69.6 % (36.0-66.0); PLATELET COUNT, AUTOMATED 177 10^3/uL (150-450); RED BLOOD COUNT 4.25 10^6/uL (4.30-6.10); RED CELL DISTRIBUTION WIDTH 13.2 % (11.5-14.5)
[2018-06-18 05:47] LABS: ALKALINE PHOSPHATASE 45 U/L (45-117); ALT/SGPT 12 U/L (12-78); AST/SGOT 10 U/L (7-37); BILIRUBIN,DIRECT 0.2 MG/DL (0.0-0.2); BILIRUBIN,TOTAL 0.9 MG/DL (0.2-1.0); BLOOD UREA NITROGEN 11 MG/DL (7-18); CALCIUM LEVEL 8.5 MG/DL (8.8-10.2); CHLORIDE LEVEL 111 MEQ/L (98-107); CREATININE FOR GFR 0.89 MG/DL (0.70-1.30); SODIUM LEVEL 142 MEQ/L (136-145); TOTAL PROTEIN 6.1 GM/DL (6.4-8.2)
[2018-06-18 06:05] LABS: GLUCOSE, FASTING 121 MG/DL (70-100)
[2018-06-18] MEDS: ATORVASTATIN 20 MG TAB PO (08:22)
[2018-06-18] MEDS: METOPROLOL TART 50 MG TAB PO (08:22)
[2018-06-18] MEDS: PANTOPRAZOLE 40MG INJ (PROTONIX) (C9113) IV (08:22)
[2018-06-18] MEDS: DYAZIDE 37.5/25 CAP (TRIAM/HCTZ) PO (08:22)
[2018-06-18] MEDS: D5W/0.9% SODIUM CHLORIDE 1,000 ML IV (08:23)
[2018-06-18 09:12] LABS: MAGNESIUM LEVEL 1.4 MG/DL (1.8-2.4)
[2018-06-18] MEDS: MAG SULF 1GM/100ML (MAG RUN) 1 GM in APPROPRIATE DILUENT 1 EA IV (10:02)
[2018-06-18] MEDS: POTASSIUM CHLORIDE 10 MEQ SR TABLET PO (10:02)
[2018-06-18 15:43] LABS: POTASSIUM SERUM 3.3 MEQ/L (3.5-5.1)
[2018-06-18 15:44] LABS: ALBUMIN/GLOBULIN RATIO 0.97 (1.00-1.93); ANION GAP 9 MEQ/L (8-16); CARBON DIOXIDE LEVEL 22 MEQ/L (21-32)
[2018-06-18] MEDS ORDERED: RIVAROXABAN 20 MG TAB (XARELTO) PO (18:00)
== END 2018-06-18 11:36 | disposition home or self-care (01) | DRG 378 ==
LOC: M ED 11:01 → M ED INP 20:23 → M PCU 21:19
DX: K92.2 Gastrointestinal hemorrhage, unspecified (principal); I50.32 Chronic diastolic (congestive) heart failure; I11.0 Hypertensive heart disease with heart failure; E11.9 Type 2 diabetes mellitus without complications; K21.9 Gastro-esophageal reflux disease without esophagitis; N40.0 Benign prostatic hyperplasia without lower urinary tract symptoms; E78.5 Hyperlipidemia, unspecified; E87.6 Hypokalemia; I27.20 Pulmonary hypertension, unspecified; M54.9 Dorsalgia, unspecified; K64.4 Residual hemorrhoidal skin tags; I48.91 Unspecified atrial fibrillation; F17.210 Nicotine dependence, cigarettes, uncomplicated; I25.10 Atherosclerotic heart disease of native coronary artery without angina pectoris; I35.0 Nonrheumatic aortic (valve) stenosis; Z95.0 Presence of cardiac pacemaker; Z95.5 Presence of coronary angioplasty implant and graft; Z86.010 Personal history of colon polyps; Z79.84 Long term (current) use of oral hypoglycemic drugs; Z79.01 Long term (current) use of anticoagulants; Z79.899 Other long term (current) drug therapy

== ENCOUNTER → 2020-01-19 | Outpatient (CLI) | payer MEDICARE ==
[~2020-01-19] MED LIST changes: -AMLO5TAB2 PO; +AMLO5TAB6 PO; -ASPI81CH PO; +ASPI81CH49 PO; -CITA20TA4 PO; +CITA20TA6 PO; +FERR325T3 PO; -GABA-282 PO; -GABA-283 PO; +GABA-843 PO; +GABA-845 PO; +KLOR20TA42 PO; +LISI40TA52 PO; -LISI40TAB PO; +METF-839 PO; +METF-954 PO; +METO50TA7 PO; +MM S100C PO; +OMEP1CAP73 PO; -OMEP20CA3 PO; -POTA20TA PO; -PRAD150C PO; +PRAD150C6 PO; +TERA1CAP3 PO; -TERA1CAP46 PO; +TRIA37.5 PO; -VITA1CAP40 PO; +VITA50005 PO
--- NOTE | 2020-01-19 10:04 | REP ---
CHEST X-RAY: TWO VIEWS. HISTORY: Cough and shortness of breath. Obstructive pulmonary disease. Comparison chest x-ray: March 18, 2017. FINDINGS: A bipolar pacemaker is seen in place via the left side. The lungs are slightly hyperinflated but clear. Pleural angles are sharp. The heart is not felt to be enlarged. Question left coronary artery stent material. Some vascular calcification is seen in the aorta. There are degenerative changes in the thoracic spine. Pulmonary vasculature is not increased. IMPRESSION: Mild hyperinflation. Otherwise no active cardiopulmonary disease. Pacemaker in place. Electronically Signed by Lemuel Romero MD 01/19/2020 10:42 A
[2020-01-19 12:41] LABS: BASO # 0.1 10^3/uL (0.0-0.2); BASO % 0.6 % (0.0-1.0); EOS # 0.1 10^3/uL (0.0-0.5); EOS % 0.9 % (0.0-3.0); HEMATOCRIT 49.9 % (42.0-52.0); HEMOGLOBIN 15.9 g/dl (13.5-17.5); LYMPH # 1.4 10^3/uL (1.5-5.0); LYMPH % 12.8 % (24.0-44.0); MEAN CORPUSCULAR HEMOGLOBIN 29.1 pg (27.0-33.0); MEAN CORPUSCULAR HGB CONC 31.9 g/dl (32.0-36.5); MEAN CORPUSCULAR VOLUME 91.2 fl (80.0-96.0); MONO # 0.5 10^3/uL (0.0-0.8); MONO % 4.7 % (0.0-5.0); NEUTROPHILS # 8.8 10^3/uL (1.5-8.5); NEUTROPHILS % 80.6 % (36.0-66.0); PLATELET COUNT, AUTOMATED 218 10^3/uL (150-450); RED BLOOD COUNT 5.47 10^6/uL (4.30-6.10)
[2020-01-19 12:42] LABS: ALBUMIN 3.7 GM/DL (3.2-5.2); ALT/SGPT 23 U/L (12-78); BLOOD UREA NITROGEN 27 MG/DL (7-18); CALCIUM LEVEL 10.1 MG/DL (8.8-10.2); CARBON DIOXIDE LEVEL 28 MEQ/L (21-32); CHLORIDE LEVEL 105 MEQ/L (98-107); CREATININE FOR GFR 1.13 MG/DL (0.70-1.30); GLOMERULAR FILTRATION RATE > 60.0 (>42); GLUCOSE, FASTING 150 MG/DL (70-100); POTASSIUM SERUM 4.3 MEQ/L (3.5-5.1); SODIUM LEVEL 138 MEQ/L (136-145); TOTAL PROTEIN 7.1 GM/DL (6.4-8.2)
== END ==
LOC: M WUC 09:11
PROVIDERS: ATTEND Nurse Practitioner Family
DX: J44.1 Chronic obstructive pulmonary disease with (acute) exacerbation (principal); Z95.0 Presence of cardiac pacemaker; Z79.84 Long term (current) use of oral hypoglycemic drugs; Z79.899 Other long term (current) drug therapy

== ENCOUNTER 2021-03-27 12:36 | Emergency (ER) | payer MEDICARE, OTHER ==
[~2021-03-27] VITALS: Ht 182.9 cm; Wt 98.5 kg
[~2021-03-27 12:36] MED LIST changes: +AMLO1TAB24 PO; -AMLO5TAB6 PO; +ASPI-546 PO; -ASPI1TAB15 PO; +DRON400T PO; -DRON40TA PO; +GABA-282 PO; +GABA-283 PO; -GABA-843 PO; -GABA-845 PO; +OXYC-1 PO; -OXYC15TA76 PO
[2021-03-27] MEDS ORDERED: ALBU83IN NEB (12:49)
[2021-03-27] MEDS ORDERED: GLIP5TAB8 PO (12:49)
[2021-03-27] MEDS ORDERED: ROSU40TA4 PO (12:49)
[2021-03-27] MEDS ORDERED: PROAAER10 INH (12:49)
[2021-03-27] MEDS ORDERED: SYMB16INH INH (12:49)
[2021-03-27] MEDS ORDERED: ALPR2TAB3 PA (12:49)
[2021-03-27] MEDS ORDERED: TERA1CA PO (12:49)
[2021-03-27] MEDS ORDERED: ALLO100T PO (12:49)
[2021-03-27] MEDS ORDERED: MELA3TAB24 PO (12:49)
[2021-03-27] MEDS ORDERED: TORS100T PO (12:49)
[2021-03-27] MEDS ORDERED: K-TA10TA2 PO (12:49)
[2021-03-27] MEDS ORDERED: PLAV1TAB2 PO (12:49)
[2021-03-27] MEDS ORDERED: NS 1,000 ML IV ONE (14:20)
--- NOTE | 2021-03-27 14:42 | REP ---
INDICATION: sob. COMPARISON: 01/19/2020 FINDINGS: The superior mediastinal structures are midline. The cardiac silhouette is unremarkable in size, shape, and position. The diaphragmatic surfaces of the lungs are regular, and the costophrenic angles are clear. The pulmonary lan are clear. The imaged osseous structures are intact. The dual chamber bipolar pacemaker devices unchanged. Since the last examination an intracardiac device has been placed. IMPRESSION: There is no acute cardiopulmonary disease. <Electronically signed by Robbie Rico > 03/27/21 [id number]
[2021-03-27 14:58] LABS: BASO # 0.1 10^3/uL (0.0-0.2); BASO % 0.5 % (0.0-1.0); EOS # 0.1 10^3/uL (0.0-0.5); EOS % 0.8 % (0.0-3.0); HEMATOCRIT 49.1 % (42.0-52.0); HEMOGLOBIN 15.7 g/dl (13.5-17.5); LYMPH % 16.7 % (24.0-44.0); MEAN CORPUSCULAR HEMOGLOBIN 28.3 pg (27.0-33.0); MEAN CORPUSCULAR VOLUME 88.5 fl (80.0-96.0); MONO # 1.1 10^3/uL (0.0-0.8); MONO % 9.2 % (2.0-8.0); NEUTROPHILS # 8.7 10^3/uL (1.5-8.5); NEUTROPHILS % 72.3 % (36.0-66.0); PLATELET COUNT, AUTOMATED 266 10^3/uL (150-450); RED BLOOD COUNT 5.55 10^6/uL (4.30-6.10)
[2021-03-27 15:07] LABS: INR 2.38; PROTHROMBIN TIME 26.5 SECONDS (12.5-14.3)
[2021-03-27 15:08] LABS: PARTIAL THROMBOPLASTIN TIME 45.9 SECONDS (24.2-38.5)
[2021-03-27 15:36] LABS: ALBUMIN 3.6 GM/DL (3.2-5.2); ALT/SGPT 23 U/L (12-78); BILIRUBIN,DIRECT 0.5 MG/DL (0.0-0.2); BILIRUBIN,TOTAL 1.2 MG/DL (0.2-1.0); CK-MB VALUE MASS 1.7 NG/ML (<3.6); CPK CREATINE PHOSPHOKINASE 54 U/L (39-308); LIPASE 72 U/L (73-393); MB/CK RELATIVE INDEX 3.15 (< OR =4); NT-PRO BNP 1455 PG/ML (<125); TOTAL PROTEIN 7.2 GM/DL (6.4-8.2); TROPONIN I < 0.02 NG/ML (< 0.10)
[2021-03-27] MEDS: GASTROGRAFIN SOLUTION 30ML PO SCH ×2 (16:17→16:58)
[2021-03-27] MEDS ORDERED: PANTOPRAZOLE 40MG VIAL (C9113 PER 1) IV ONE (18:10)
[2021-03-27] MEDS ORDERED: MORPHINE 4 MG/ML 1ML VIAL/SYRINGE (J2270) IV ONE (18:10)
--- NOTE | 2021-03-27 18:24 | REPVR ---
PROCEDURE INFORMATION: Exam: CT Abdomen And Pelvis Without Contrast Exam date and time: 03/27/2021 2:58 PM Age: 75 years old Clinical indication: Abdominal pain; Localized; Upper; Additional info: Upper abd pain TECHNIQUE: Imaging protocol: Computed tomography of the abdomen and pelvis without contrast. Radiation optimization: All CT scans at this facility use at least one of these dose optimization techniques: automated exposure control; mA and/or kV adjustment per patient size (includes targeted exams where dose is matched to clinical indication); or iterative reconstruction. COMPARISON: CT ABD/PEL W/IV CONTRAST ONLY 10/29/2017 10:39 PM FINDINGS: Lungs: Clear appearing lung bases. Heart: Is the heart is normal in size and there is a prosthetic aortic valve Liver: Normal. No mass. Gallbladder and bile ducts: There are multiple small calcified gallstones in the dependent portion of the gallbladder. Normal common bile ducts. Pancreas: Normal pancreas. Spleen: Normal spleen. Adrenal glands: Normal adrenal glands. Kidneys and ureters: There is a small exophytic cyst lower pole of the left kidney. There is no evidence of hydronephrosis. Stomach and bowel: There is contrast throughout the bowel with no evidence of obstruction. There are numerous diverticula of the left colon and sigmoid colon but no evidence of diverticulitis. Appendix: The the normal appearing appendix. Intraperitoneal space: There is no evidence of pneumoperitoneum. There is no evidence of free fluid in the abdomen or pelvis. Vasculature: There is calcification of the aorta consistent with atherosclerotic changes. Lymph nodes: Unremarkable. No enlarged lymph nodes. Urinary bladder: There is mild distention of the urinary bladder. Reproductive: There is moderate enlargement of the prostate greater on the right with impression on the floor of the urinary bladder and crescent shaped calcification. Bones/joints: The the there is bridging osteophyte formation right left SI joint. Soft tissues: Unremarkable. IMPRESSION: Multiple small calcified gallstones in the dependent portion of gallbladder. COMMENTS: Consistent with the [employer]'s Incidental Findings Committee white paper (J Am Prema Radiol 2018): Any incidental renal lesion less than 1 cm or classified as too small to characterize, or any incidental cystic renal lesion characterized as simple-appearing, is likely benign. No follow-up imaging is recommended for these lesions per consensus recommendations based on imaging criteria. Electronically signed by: Joe Castellanos On 03/27/2021 18:24:22 PM
--- NOTE | 2021-03-27 20:31 | REPVR ---
PROCEDURE INFORMATION: Exam: US Abdomen, Limited; Right Upper Quadrant Exam date and time: 03/27/2021 8:01 PM Age: 75 years old Clinical indication: Abdominal pain; Epigastric; Additional info: Pain ruq TECHNIQUE: Imaging protocol: US abdomen. Real time ultrasound with image documentation. Limited exam focused on the right upper quadrant. COMPARISON: GALLBLADDER US 06/16/2018 2:32 PM FINDINGS: Liver: The liver has uniform echogenicity and no intrahepatic biliary dilatation. Gallbladder: There is no evidence of thickening of the gallbladder wall. There are gallstones and sludge near the neck of the gallbladder. Common bile duct: The common bile duct is normal in size measuring 5 mm. Pancreas: Pancreas does not appear enlarged. Right kidney: The right kidney measures 11.7 cm in length by 7 cm in thickness and there is no hydronephrosis. IMPRESSION: Sludge and possible small stones at the neck of the gallbladder. Electronically signed by: Joe Castellanos On 03/27/2021 20:31:20 PM
[2021-03-27 20:37] VITALS: BP 116/69
--- NOTE | 2021-03-28 12:58 | ED PDOC ---
Post-Departure Follow-Up gb us faxed to dr membreno for fu Damon Regan MD Mar 28, 2021 12:58
--- NOTE | 2021-03-28 20:53 | ECGEPIP ---
[facility] - ED Test Date: 2021-03-27 Pat Name: HUGH PIERRE Department: Room: - Gender: Male Rn Operating Room: [place] : 1945 Requested By: SHIRAZ Hale PA-C Order Number: [id number] Reading MD: Gabriela Chavez Measurements Intervals [place] Rate: 62 P: [place]: QRS: 54 QRSD: 196 T: 216 QT: 508 QTc: 515 Interpretive Statements Ventricular-paced rhythm similar 10/30/17 Electronically Signed on 03-28-2021 20:53:06 EDT by Gabriela Chavez
== END 2021-03-27 20:40 | disposition home or self-care (01) ==
LOC: M ED 12:36
DX: R10.9 Unspecified abdominal pain (principal); K80.20 Calculus of gallbladder without cholecystitis without obstruction; E86.0 Dehydration; I45.81 Long QT syndrome; R79.89 Other specified abnormal findings of blood chemistry; R06.02 Shortness of breath; I25.2 Old myocardial infarction; I48.91 Unspecified atrial fibrillation; I10 Essential (primary) hypertension; E78.5 Hyperlipidemia, unspecified; J44.9 Chronic obstructive pulmonary disease, unspecified; K21.9 Gastro-esophageal reflux disease without esophagitis; E11.40 Type 2 diabetes mellitus with diabetic neuropathy, unspecified; M54.9 Dorsalgia, unspecified; F43.10 Post-traumatic stress disorder, unspecified; F32.9 Major depressive disorder, single episode, unspecified; Z95.0 Presence of cardiac pacemaker; F17.200 Nicotine dependence, unspecified, uncomplicated; Z79.899 Other long term (current) drug therapy
CPT/HCPCS: 71046; 74176; 76705; 80047; 80076; 81001; 82550; 82553; 83605; 83690; 83880; 84484; 85025; 85610; 85730; 93005; 96361; 96374; 96375; 99284; C9113; J2270; Q9963

== ENCOUNTER 2021-04-12 10:00 | Inpatient (IN) | payer OTHER, MEDICARE ==
[~2021-04-12] VITALS: Ht 180.3 cm; Wt 98.3 kg
[~2021-04-12 10:00] MED LIST changes: +ALBU83IN INH; +ALLO100T PO; +ALPR2TAB3 PO; +GLIP5TAB8 PO; +MELA3TAB24 PO; +PLAV1TAB2 PO; +PROAAER10 INH; +ROSU40TA4 PO; +SYMB16INH INH; +TERA1CA PO; +TORS100T PO
[2021-04-12] MEDS ORDERED: NS 1,000 ML IV ONE (12:10)
[2021-04-12] MEDS ORDERED: ONDANSETRON 4MG/2ML VIAL IV ONE (12:10)
--- NOTE | 2021-04-12 12:46 | REP ---
INDICATION: Abdominal Pain COMPARISON: 01/19/2020 TECHNIQUE: PA and lateral. FINDINGS: The mediastinum and cardiac silhouette are within normal limits. Dual lead pacemaker and aortic valve repair noted along with prior coronary stent. The lung lan are clear and without acute consolidation, effusion, or pneumothorax. The skeletal structures are intact and normal. IMPRESSION: No acute cardiopulmonary process. <Electronically signed by Rosendo Victor > 04/12/21 [id number]
[2021-04-12 12:54] LABS: BASO # 0.1 10^3/uL (0.0-0.2); BASO % 0.4 % (0.0-1.0); EOS # 0.1 10^3/uL (0.0-0.5); EOS % 0.6 % (0.0-3.0); HEMOGLOBIN 15.9 g/dl (13.5-17.5); LYMPH # 1.6 10^3/uL (1.5-5.0); LYMPH % 9.7 % (24.0-44.0); MEAN CORPUSCULAR HEMOGLOBIN 28.5 pg (27.0-33.0); MEAN CORPUSCULAR HGB CONC 33.1 g/dl (32.0-36.5); MEAN CORPUSCULAR VOLUME 86.2 fl (80.0-96.0); MONO # 1.2 10^3/uL (0.0-0.8); MONO % 7.1 % (2.0-8.0); NEUTROPHILS # 13.2 10^3/uL (1.5-8.5); NEUTROPHILS % 81.5 % (36.0-66.0); PLATELET COUNT, AUTOMATED 288 10^3/uL (150-450); RED BLOOD COUNT 5.57 10^6/uL (4.30-6.10); WHITE BLOOD COUNT 16.1 10^3/uL (4.0-10.0)
[2021-04-12 13:03] LABS: BLOOD UREA NITROGEN 38 MG/DL (7-18); CALCIUM LEVEL 9.7 MG/DL (8.8-10.2); CARBON DIOXIDE LEVEL 26 MEQ/L (21-32); CHLORIDE LEVEL 93 MEQ/L (98-107); CREATININE FOR GFR 2.24 MG/DL (0.70-1.30); GLOMERULAR FILTRATION RATE 30.7 (>42); GLUCOSE, FASTING 56 MG/DL (70-100); SODIUM LEVEL 129 MEQ/L (136-145)
[2021-04-12 13:04] LABS: ALBUMIN 3.1 GM/DL (3.2-5.2); ALT/SGPT 13 U/L (12-78); BILIRUBIN,DIRECT 0.3 MG/DL (0.0-0.2); BILIRUBIN,TOTAL 0.8 MG/DL (0.2-1.0); CK-MB VALUE MASS 1.7 NG/ML (<3.6); CPK CREATINE PHOSPHOKINASE 39 U/L (39-308); LIPASE 108 U/L (73-393); MB/CK RELATIVE INDEX 4.36 (< OR =4); NT-PRO BNP 4149 PG/ML (<125); TOTAL PROTEIN 7.5 GM/DL (6.4-8.2); TROPONIN I < 0.02 NG/ML (< 0.10)
[2021-04-12 13:54] LABS: INR 2.62; PROTHROMBIN TIME 28.6 SECONDS (12.5-14.3)
--- NOTE | 2021-04-12 14:18 | REP ---
INDICATION: decreased renal function. COMPARISON: None. FINDINGS: Multiple ultrasonographic images of the right kidney show the right kidney to measure 10.2 x 6 x 6.2 cm. The renal cortical echotexture is diffusely increased. There is a hypoechoic 1.3 x 1.5 x 1.5 cm sized nodule in the mid polar region. There is poor corticomedullary differentiation. There is no hydronephrosis. There are no perinephric fluid collections. Multiple ultrasonographic images of the left kidney show the left kidney to measure 10.6 x 6.1 x 6 cm. The renal cortical echotexture diffusely increased. There is a hypoechoic 1.7 x 1.4 x 1.6 cm size nodule arising from the inferior pole. There is poor corticomedullary differentiation. There is no hydronephrosis. There are no perinephric fluid collections. IMPRESSION: 1. Bilateral hypoechoic renal nodules as described above. These could not be satisfactorily evaluated on the patient's prior CT of 03/27/2021 which is a non contrast enhanced exam. The patient's contrast-enhanced CT examination of 10/29/2017 did show bilateral renal cysts and today's findings likely represents the CT findings of cysts. Follow-up contrast-enhanced CT, however, is recommended to ensure stability. 2. Diffusely increased bilateral renal cortical echoes consistent with medical renal disease. 3. Other findings as described above. <Electronically signed by Robbie Rico > 04/12/21 1312
[2021-04-12 15:44] LABS: RSV AMPLIFICATION NEGATIVE (NEGATIVE)
[2021-04-12] MEDS ORDERED: ALBU83IN INH (15:53)
[2021-04-12] MEDS ORDERED: OMEP1CAP73 PO (15:53)
[2021-04-12] MEDS ORDERED: D31000TA2 PO (15:54)
[2021-04-12] MEDS ORDERED: DICL20GE TOP (15:54)
[2021-04-12] MEDS ORDERED: ALPR1TAB3 PO (15:56)
[2021-04-12] MEDS ORDERED: MAALOX 30 ML SUSP *UDC PO PRN (16:00)
[2021-04-12] MEDS ORDERED: MOM 30ML SUSPENSION UDC PO PRN (16:00)
[2021-04-12] MEDS ORDERED: ACETAMINOPHEN TAB 650MG DOSE (2X325MG) PO PRN (16:00)
[2021-04-12] MEDS ORDERED: ALBUTEROL SULFATE 2.5 MG/0.5 ML INH NEB SOLN INH PRN (16:15)
[2021-04-12] MEDS ORDERED: DEXTROSE 50% 50 ML SYRINGE IV PRN (16:15)
[2021-04-12] MEDS ORDERED: GLUCOSE 4GM CHEW TABLET PO PRN (16:15)
[2021-04-12] MEDS ORDERED: GLUCAGON INJ 1MG VIAL SC PRN (16:15)
[2021-04-12] MEDS ORDERED: ALBUTEROL 90 MCG/ACT 8GM HFA INHALER INH PRN (16:15)
[2021-04-12] MEDS ORDERED: NS 1,000 ML IV SCH (16:20)
--- NOTE | 2021-04-12 16:59 | HPEPDOC ---
General Date of Admission Apr 12, 2021 at 16:03 Date of Service: Apr 12, 2021 Attending Physician: GLENNY PHAN MD Chief Complaint The patient is a 75-year-old male admitted with a reason for visit of CLAUDIA. History of Present Illness CHIEF COMPLAINT: 75-year-old male patient with decreased appetite and weakness HISTORY OF PRESENT ILLNESS: Mr. Mccabe is a 75-year-old male patient with extensive past medical history A. fib X 2 s/p ablation on Xarelto and metoprolol, CAD s/p stenting on Plavix, aortic valve replacement, HTN, DM type II, diastolic CHF, BPH, HDL, pulmonary hypertension, H/o GI bleed presenting to the emergency department with complaining of decreased appetite with 80 pound weight loss in 2 months, nausea, weakness, bilateral lower abdominal pain 8 /10 in severity, not associated with food or bowel movement. He reports he had a fall 2 weeks ago due to weakness with out any head trauma, no loss of consciousness. He reports to have decreased oral intake and is not tolerating few foods. He denies having any vomiting, diarrhea, constipation, dark stools, shortness of breath, cough. PAST MEDICAL HISTORY: 1. Hypertensionblood pressure well controlled with medication at home 2. Diabetes mellitus on Metformin and glipizide at home 3. GERD on pantoprazole 20 mg at home 4. BPH 5. Dyslipidemia-on statin at home 6. Moderate pulmonary hypertension 7. Atrial fibrillation status post ablation x2 on Xarelto and metoprolol 8. CAD s/p stenting on Plavix, statin 9. Aortic valve replacement [likely bioprosthetic valve]-on Plavix and Xarelto 10. COPD PAST SURGICAL HISTORY: 1. Left knee arthroscopy 2. Left medial meniscectomy. 3. Left partial lateral meniscectomy 4. Pacemaker placement 5. 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 For past 53 years ETOH: Denies Illicit drug use: Denies FAMILY HISTORY: Father: at age 85 from colon cancer and emphysema Mother: at age 49 with diabetes Siblings: 2 brothers and 1 sister: Brother's both alive one 73-year-old with richard betic and other 75-year-old healthy, sister alive 71-year-old with pacemaker, s/p gastric bypass Children: Son Hereditary Diseases: None Unexpected deaths due to medical reasons: None ALLERGIES: Please see below. REVIEW OF SYSTEMS: Constitutional: Denies fever, chills, night sweats, patient lost 80 pounds in last 2 months, denies headaches. Eyes: Denies any blurry vision or double vision. ENT: Denies any dysphagia, odynophagia, ear discharge, sore throat. Cardiovascular: Denies any chest pain, palpitations, orthopnea/PND. Respiratory: Denies shortness of breath, cough,pleuritic chest pain. Gastrointestinal (GI): Denies any vomiting, diarrhea, constipation, melena, hematochezia. reports nausea Genitourinary: Denies dysuria, hematuria. Musculoskeletal: Denies any muscle pains or joint aches. Skin: Denies unsual rashes or ulcers. Hematology/Oncology: Denies any easy bleeding or bruising. Endocrine: Denies cold intolerance, heat intolerance, polydipsia, polyphagia, polyuria All other review of systems is negative. HOME MEDICATIONS: Please see below. PHYSICAL EXAMINATION: General: Patient is awake, alert, oriented times three, sitting in bed , no apparent distress. Eyes: Conjunctiva clear, pupils equal round and reactive to light and accommodation. ENT: Has hearing aids, no nasal deviation, oropharynx clear with no lesions/erythema. Neck: supple, no masses, trachea midline, no thyroid nodules, masses, tenderness or enlargement. Cardiovascular: S1, S2, normal rhythm, 2/5 systolic murmur, rub, or gallop. Respiratory: Chest is clear to auscultation bilaterally, No rhonchi, wheezes or rubs. Abdomen: Soft, bowel sounds positive, no bruits. Nontender on palpation. Extremities: No clubbing or cyanosis. No edema, no tenderness. Central nervous system (SPINNER OPEN END): Awake, alert and fully oriented. Skin: No rashes, lesions, ulcerations, subcutaneous nodules or induration. LABORATORY DATA: See below. IMAGING: Chest x-ray done on 04/12/21: Reported as no acute cardiopulmonary processes. Renal ultrasound done on 04/12/2021: Reported as:1. Bilateral hypoechoic renal nodules as described above. These could not be satisfactorily evaluated on the patient's prior CT of 03/27/2021 which is a non contrast enhanced exam. The patient's contrast-enhanced CT examination of 10/29/2017 did show bilateral renal cysts and today's findings likely represents the CT fi ndings of cysts. Follow-up contrast-enhanced CT, however, is recommended to ensure stability. 2. Diffusely increased bilateral renal cortical echoes consistent with medical renal disease. MICROBIOLOGY: Please see below. ASSESSMENT: 75-year-old gentleman with a past medical history of A. fib s/p 2 x ablation on metoprolol and Xarelto, CAD s/p stenting on Plavix,aortic valve replacement, HTN, DM type II, diastolic CHF, BPH, HDL, pulmonary hypertension who presented to ED with decreased appetite and weakness on further testing in the ED patient seems to be in CLAUDIA with a creatinine of 2.24, looks dehydrated with dry skin. He is being admitted to the hospitalist service for further management of his CLAUDIA and to evaluate his decreased appetite and weight loss. PLAN: 1. Decreased appetite and weakness: -Patient's decreased appetite might be related to a GI issue he did report not tolerating oral intake and might need further evaluation with an upper GI endoscopy to evaluate. -Given his CLAUDIA he would not be a candidate for endoscopy right away. -Need to rule out any other age-related malignancies -He might be benefited from having a low-dose CT scan done outpatient given his smoking history to rule out any malignancy of the lung. -We will get an FOBT to rule out any chronic bleeding occurring, however unlikely given his hemoglobin is stable. -We will put in a nutritional consult as well. -As of now we will keep patient on full liquid diet and will further evaluate tomorrow with speech therapy and based on that we will advance diet. -Patient has some mild elevated and white count likely due to hemoconcentration vs infection, will get procalcitonin level to rule out any infection. -A consultation for PT and OT eval is also in place. 2. CLAUDIA: -Due to decreased oral intake. -We need to calculate FENa to see if it is prerenal or postrenal. -We will start him on fluids normal saline at a rate of 120 mils per hour. -We will avoid nephrotoxic drugs[will hold allopurinol, statin 3. A. fib s/p 2X ablation: -Patient would be admitted to PCU and will be on telemetry. -We will continue metoprolol for rate control [with hold parameters for SBP less than 90 mmHg] and Xarelto for anticoagulation. 4. CAD s/p stenting: -We will continue patient on Plavix. 5. NIDDM: -On hypoglycemic protocol. -We will put patient on insulin sliding scale. 6. COPD: -We will continue his home inhalers. -We will start him on a nicotine patch. 7. GI prophylaxis: -Given the patient history of GI bleed in the past. -On blood thinners -We will put patient on pantoprazole 40 mg p.o. daily 8. DVT prophylaxis: -On Xarelto. Disposition: -Possible 2 night hospital stays. Home Medications Scheduled Albuterol Sulf (Albuterol Sulfate) 2.5 Mg/3 Ml Vial.neb, 2.5 MG INH QAM, (Reported) Allopurinol (Allopurinol) 100 Mg Tablet, 100 MG PO DAILY, (Reported) Alprazolam (Alprazolam) 1 Mg Tablet, 1 MG PO QHS, (Reported) Budesonide/Formoterol (Symbicort 160-4.5 Mcg Inhaler) 6 Gm Hfa.aer.ad, 2 PUFF INH BID, (Reported) Cholecalciferol (Vitamin D3) (Vitamin D3) 1,000 Unit Tablet, 1,000 UNITS PO BID, (Reported) Clopidogrel Bisulfate (Plavix) 75 Mg Tablet, 75 MG PO DAILY, (Reported) Glipizide (Glipizide) 5 Mg Tablet, 5 MG PO BID, (Reported) Metoprolol Tartrate (Metoprolol Tartrate) 50 Mg Tab, 50 MG PO DAILY, (Reported) Omeprazole (Omeprazole) 20 Mg Capsule.dr, 20 MG PO BID, (Reported) Potassium Chloride (K-Tab ER) 10 Meq Tablet.er, 30 MEQ PO BID, (Reported) Rivaroxaban (Xarelto) 20 Mg Tab, 20 MG PO DAILY, (Reported) Rosuvastatin Calcium (Rosuvastatin Calcium) 40 Mg Tablet, 40 MG PO QHS, (Reported) Terazosin HCl (Terazosin HCl) 1 Mg Cap, 1 MG PO QHS, (Reported) Torsemide (Torsemide) 100 Mg Tablet, 100 MG PO DAILY, (Reported) Scheduled PRN Albuterol Sulf (Albuterol Sulfate) 2.5 Mg/3 Ml Vial.neb, 2.5 MG INH Q4H PRN for SHORTNESS OF BREATH, (Reported) Albuterol Sulfate (Proair Hfa) 8.5 Gm Hfa.aer.ad, 2 PUFF INH Q4H PRN for SOB/WHEEZING, (Reported) Diclofenac Sodium (Voltaren Arthritis Pain) 1 % Gel..gram., 4 GM TOP BID PRN for SHOULDER PAIN, (Reported) APPLIED TO RIGHT SHOULDER Allergies Coded Allergies: No Known Allergies (Unverified , 03/27/21) A-FIB/CHADSVASC A-FIB History Current/History of A-Fib/PAF?: Yes Current PO Anticoag Therapy: Yes Vital Signs Vital Signs Date Time Temp Pulse Resp B/P (MAP) Pulse Ox O2 Delivery O2 Flow Rate FiO2 04/12/21 14:37 98.0 63 18 100/65 (77) 96 Room Air Laboratory Data Labs 24H Laboratory Tests 2 04/12/21 11:11: Immature Granulocyte % (Auto) 0.7, Neutrophils (%) (Auto) 81.5H, Lymphocytes (%) (Auto) 9.7L, Monocytes (%) (Auto) 7.1, Eosinophils (%) (Auto) 0.6, Basophils (%) (Auto) 0.4, Neutrophils # (Auto) 13.2H, Lymphocytes # (Auto) 1.6, Monocytes # (Auto) 1.2H, Eosinophils # (Auto) 0.1, Basophils # (Auto) 0.1, Nucleated Red Blood Cells % (auto) 0.0, Anion Gap 10, Glomerular Filtration Rate 30.7L, Calcium Level 9.7, Total Bilirubin 0.8, Direct Bilirubin 0.3H, Aspartate Amino Transf (AST/SGOT) 19, Alanine Aminotransferase (ALT/SGPT) 13, Alkaline Phosphatase 75, Total Creatine Kinase 39, Creatine Kinase MB 1.7, Creatine Kinase MB Relative Index 4.36H, Troponin I < 0.02, ZV-Utn-[id number]-Type Natriuretic Peptide 4149H, Total Protein 7.5, Albumin 3.1L, Albumin/Globulin Ratio 0.7, Lipase 108 04/12/21 12:06: Prothrombin Time 28.6H, Prothromb Time International Ratio 2.62, Activated Partial Thromboplast Time 53.0H, Urine Color YELLOW, Urine Appearance HAZY, Urine pH 5.0, Urine Specific [place] 1.008, Urine Protein 1+H, Urine Glucose (UA) NEGATIVE, Urine Ketones NEGATIVE, Urine Blood 2+H, Urine Nitrite NEGATIVE, Urine Bilirubin NEGATIVE, Urine Urobilinogen 0.2, Urine Leukocyte Esterase NEGATIVE, Urine WBC (Auto) 3, Urine RBC (Auto) 1, Urine Hyaline Casts (Auto) 1, Urine Bacteria (Auto) 1+H, Urine Squamous Epithelial Cells 0, Urine Mucus (Auto) SMALL, Urine Sperm (Auto) 04/12/21 13:18: Lactic Acid Level 1.3 04/12/21 14:55: Coronavirus (COVID-19)(PCR) NEGATIVE, Influenza Type A (RT-PCR) NEGATIVE, Influenza Type B (RT-PCR) NEGATIVE, Respiratory Syncytial Virus (PCR) NEGATIVE 04/12/21 16:23: CBC/BMP Laboratory Tests 04/12/21 11:11 Plan / VTE VTE Prophylaxis Ordered?: Yes GME ATTESTATION GME ATTESTATION My faculty preceptor for this patient encounter was physically present during th e encounter and was fully available. All aspects of the patient interview, examination, medical decision making process, and medical care plan development were reviewed and approved by the faculty preceptor. The faculty preceptor is aware and concurs with the plan as stated in the body of this note and will attest to such by his/her cosignature. ATTENDING NOTE I, Glenny Phan, have independently examined this patient and performed my own physical exam, as well as reviewed the documentation and edited where necessary. I have discussed in detail with the resident / student the findings and plan of treatment as documented by the resident / student and edited their note. I agree with their findings and treatment plan and have edited their documentation. I will continue to follow the patient during this hospital stay. Kiera Kim MD Apr 12, 2021 16:59 GLENNY PHAN MD Apr 12, 2021 21:39
[2021-04-12] MEDS ORDERED: PANTOPRAZOLE 40MG TAB (PROTONIX) PO ONE (17:00)
[2021-04-12 17:05] LABS: SODIUM,RANDOM URINE 29 MEQ/L
[2021-04-12] MEDS: HumaLOG INSULIN (NovoLOG) PER UNIT SC SCH ×2 (17:10→21:00)
[2021-04-12 17:11] LABS: THYROID STIMULATING HORMONE 1.16 uIU/ML (0.358-3.740)
[2021-04-12 17:12] LABS: CORTISOL AM 18.1 UG/DL (4.3-22.4)
[2021-04-12] MEDS ORDERED: SODIUM CHLORIDE 0.9% 1000ML IV ONE (17:30)
[2021-04-12 17:50] VITALS: BP 103/63
[2021-04-12 18:47] LABS: MAGNESIUM LEVEL 1.8 MG/DL (1.8-2.4); PHOSPHORUS LEVEL 3.8 MG/DL (2.5-4.9)
[2021-04-12] MEDS: SYMBICORT 160/4.5MCG INHALER 6GM INH SCH (19:30)
[2021-04-12 20:00] VITALS: BP 119/72
[2021-04-12] MEDS: TERAZOSIN 1 MG CAP PO SCH (21:00)
[2021-04-12] MEDS: NICOTINE 14 MG/24 HR TRANSDERMAL TD SCH (21:00)
[2021-04-12] MEDS: DOCUSATE SODIUM 100MG CAPSULE PO SCH (21:16)
[2021-04-12] MEDS: VITAMIN D 1,000 INTERNATIONAL UNITS TABLET PO SCH (21:17)
[2021-04-12] MEDS: D5W/0.9% SODIUM CHLORIDE 1,000 ML IV SCH (21:17)
[2021-04-12 22:00] VITALS: BP 106/62
[2021-04-13 04:57] LABS: BASO % 0.3 % (0.0-1.0); EOS # 0.1 10^3/uL (0.0-0.5); HEMATOCRIT 41.6 % (42.0-52.0); HEMOGLOBIN 13.5 g/dl (13.5-17.5); LYMPH # 1.6 10^3/uL (1.5-5.0); LYMPH % 13.5 % (24.0-44.0); MEAN CORPUSCULAR HGB CONC 32.5 g/dl (32.0-36.5); MEAN CORPUSCULAR VOLUME 86.3 fl (80.0-96.0); MONO # 1.2 10^3/uL (0.0-0.8); MONO % 9.9 % (2.0-8.0); NEUTROPHILS # 8.8 10^3/uL (1.5-8.5); NEUTROPHILS % 74.9 % (36.0-66.0); PLATELET COUNT, AUTOMATED 227 10^3/uL (150-450); RED BLOOD COUNT 4.82 10^6/uL (4.30-6.10); WHITE BLOOD COUNT 11.8 10^3/uL (4.0-10.0)
[2021-04-13 05:25] LABS: CALCIUM LEVEL 8.5 MG/DL (8.8-10.2); CREATININE FOR GFR 1.8 MG/DL (0.70-1.30); GLOMERULAR FILTRATION RATE 39.6 (>42); MAGNESIUM LEVEL 1.8 MG/DL (1.8-2.4); POTASSIUM SERUM 2.9 MEQ/L (3.5-5.1)
[2021-04-13 06:00] VITALS: BP 100/52
[2021-04-13] MEDS: KCL 10MEQ/100ML SWI (KRUN) 10 MEQ in IV 1 EA IV SCH ×3 (06:03→09:09)
[2021-04-13] MEDS: D5W/0.9% SODIUM CHLORIDE 1,000 ML IV SCH (06:03)
[2021-04-13] MEDS ORDERED: POTASSIUM CHLORIDE 10% LIQ 20 MEQ/15 ML UDC PO ONE (06:55)
[2021-04-13] MEDS: SYMBICORT 160/4.5MCG INHALER 6GM INH SCH ×2 (07:14→19:27)
[2021-04-13 07:17] VITALS: BP 92/52
[2021-04-13] MEDS: HumaLOG INSULIN (NovoLOG) PER UNIT SC SCH ×4 (07:30→20:55)
[2021-04-13 07:34] LABS: UREA NITROGEN RANDOM URINE 164 MG/DL
[2021-04-13] MEDS ORDERED: E-Z-PAQUE 96% w/w SUSP 176GM BTL As Ordered ONE (08:07)
[2021-04-13] MEDS ORDERED: E-Z-HD 98% w/w 340GM SUSP BTL As Ordered ONE (08:07)
[2021-04-13] MEDS ORDERED: E-Z-GAS II EFFERVESCENT PACKET (SODIUM BICARB./CITRIC ACID/SIMETHICONE) As Ordered ONE (08:07)
[2021-04-13] MEDS: NICOTINE 14 MG/24 HR TRANSDERMAL TD SCH (09:00)
[2021-04-13] MEDS: METOPROLOL TART 50 MG TAB PO SCH (09:09)
[2021-04-13] MEDS: DOCUSATE SODIUM 100MG CAPSULE PO SCH ×2 (09:09→20:27)
[2021-04-13] MEDS: CLOPIDOGREL 75 MG TAB PO SCH (09:09)
[2021-04-13] MEDS: VITAMIN D 1,000 INTERNATIONAL UNITS TABLET PO SCH ×2 (09:09→20:21)
[2021-04-13] MEDS: NS 1,000 ML IV SCH ×3 (09:10→20:21)
[2021-04-13 11:18] VITALS: BP 109/66
--- NOTE | 2021-04-13 12:50 | REP ---
INDICATION: dysphagia. COMPARISON: None. TECHNIQUE: The procedure was performed under the direct supervision of Dr. Romero. The images were reviewed with Dr. Romero. Liquid barium and gas producing crystals were given in the erect position as well as liquid barium in the prone oblique position in order to perform a double contrast upper GI and esophagram examination. A combination of fluoroscopy, spot films and last image hold technology was utilized. 1.5 minutes of fluoro time was utilized for this procedure. FINDINGS: The help aid film shows no organomegaly or pathological masses. The intestinal gas pattern is non-specific. Single view PA chest x-ray shows no change from the previous chest x-ray performed on 04/12/2021. The oral and pharyngeal stages of deglutition are unremarkable. Esophageal transport is prompt and efficient and there is no esophagitis, stricture, mucosal ring or hiatal hernia. There is gastroesophageal reflux demonstrated to the level of the thoracic inlet. Within the stomach there are thickened folds. This may represent gastritis. There is no chayo ulcer identified.. The duodenal samano are normally outlined. The mucosal folds are smooth and regular. There is no duodenitis pancreatitis peptic ulcer disease or neoplasm. The visualized portion of the proximal small bowel appears normal in course and caliber. IMPRESSION: 1. There is gastroesophageal reflux demonstrated to the level of the thoracic inlet. 2. There are thickened folds in the stomach which may represent gastritis. There is no chayo ulcer identified. <Electronically signed by Arden Rouse > 04/13/21 1212 <Electronically signed by Raul Romero > 04/13/21 0852
[2021-04-13 13:08] LABS: CALCIUM LEVEL 8.8 MG/DL (8.8-10.2); CREATININE FOR GFR 1.57 MG/DL (0.70-1.30); GLOMERULAR FILTRATION RATE 46.3 (>42)
[2021-04-13] MEDS: RIVAROXABAN 20 MG TAB (XARELTO) PO SCH (17:24)
--- NOTE | 2021-04-13 17:53 | ECGEPIP ---
[facility] - ED Test Date: 2021-04-12 Pat Name: HUGH PIERRE Department: Room: - Gender: Male Teaseler: nell : 1945 Requested By: ELIZABETH MASON PA-C Order Number: [id number] Reading MD: Gabriela Chavez Measurements Intervals [place] Rate: 60 P: ME: QRS: 9 QRSD: 192 T: 141 QT: 544 QTc: 544 Interpretive Statements Ventricular-paced rhythm similar 03/27/21 Electronically Signed on 04-13-2021 17:53:17 EDT by Gabriela Chavez
--- NOTE | 2021-04-13 18:46 | IPNPDOC ---
Text Note Date of Service The patient was seen on 04/13/21. NOTE Subjective: Patient was seen at bedside. Patient does report feeling tired, and is only able to drink water, he reports he does not want to eat any solid food not that he cannot eat but he feel nauseous if he eats. Denies any vomiting. Patient did have an esophagogram which showed no obstructing lesion. Objective: General: Patient is alert oriented x3, sitting in bed, no apparent distress. Cardiac S1 and S2 normal, systolic murmur, no rubs or gallops appreciated. Respiration clear to auscultate bilaterally, no rhonchi wheezes or rubs. Abdomen soft positive bowel movements, no tenderness on palpation. Extremities: No pedal edema noted. Skin no lesions or ulcerations appreciated. Labs: Vitals: Temperature 98.2, HR 62, RR 16, BP 100/52, oxygen 92% room air. CBC, WBC 11.8 [came down from 16.1], Hb 13.5, HCT 41.6, platelet 227. BMP NA 137, K2.9 [replaced with oral potassium], CL 102, HCO3 28, BUN 31 [down from 38], creatinine 1.8 [down from 2.24], glucose 142., MG 1.8 Patient's FENa is 2.4, FE urea is 48.3 suggesting intrinsic renal etiology. Repeat BMP done at 12 noon: NA 140, K4, CL 103, HCO3 24, BUN 27, creatinine 1.57 Patient serum osmolarity, TSH, a.m. cortisol are within normal limits. Upper GI series with esophagram: Done on 04/13/2021: Reported as: There is gastroesophageal reflux demonstrated to the level of the thoracic inlet. There is t thickened folds in the stomach which may represent gastritis there is no chayo ulcer identified. ASSESSMENT: 75-year-old gentleman with a past medical history of A. fib s/p 2 x ablation on metoprolol and Xarelto, CAD s/p stenting on Plavix,aortic valve replacement, HTN, DM type II, diastolic CHF, BPH, HDL, pulmonary hypertension who presented to ED with decreased appetite and weakness on further testing in the ED patient seems to be in CLAUDIA with a creatinine of 2.24, looks dehydrated with dry skin. He is being admitted to the hospitalist service for further management of his CLAUDIA and to evaluate his decreased appetite and weight loss. PLAN: 1. Decreased appetite and weakness: -Patient still reports to have decreased appetite he did have an esophagogram done today and reported he could only tolerate oral fluids, no masses appreciated but patient reports having nausea with solid foods and has not eaten any. -We will try to reach out to surgery tomorrow to see if he can get a scope done during this hospitalization. -Need to rule out any other age-related malignancies -He might be benefited from having a low-dose CT scan done outpatient given his smoking history to rule out any malignancy of the lung. -We will get an FOBT to rule out any chronic bleeding. -He was evaluated by speech therapy today and told he could only tolerate liquid foods. -Patient leukocytosis has been resolved after treating his dehydration. 2. CLAUDIA: -Possibly due to decreased oral intake. -Patient's FENa is 2.4, FE urea is 48.3 suggesting renal etiology -However all his other labs are being improved with fluid administration. -We will avoid nephrotoxic drugs[will hold allopurinol, statin] 3. A. fib s/p 2X ablation: -Patient would be admitted to PCU and will be on telemetry. -We will continue metoprolol for rate control [with hold parameters for SBP less than 90 mmHg] and Xarelto for anticoagulation. 4. CAD s/p stenting: -We will continue patient on Plavix. 5. NIDDM: -On hypoglycemic protocol. -We will put patient on insulin sliding scale. 6. COPD: -We will continue his home inhalers. -We will start him on a nicotine patch. 7. GI prophylaxis: -Given the patient history of GI bleed in the past. -On blood thinners -We will put patient on pantoprazole 40 mg p.o. daily 8. DVT prophylaxis: -On Xarelto. Disposition: -Based on his clinical improvement. VS,Fishbone, I+O VS, Fishbone, I+O Laboratory Tests 04/13/21 04:32 04/13/21 12:10 Vital Signs Date Time Temp Pulse Resp B/P (MAP) Pulse Ox O2 Delivery O2 Flow Rate FiO2 04/13/21 11:18 98.0 65 18 109/66 (80) 97 Room Air I&O- Last 24 Hours up to 6 AM 04/13/21 06:00 Intake Total 3680 ml Output Total 2000 ml Balance 1680 ml GME ATTESTATION GME ATTESTATION My faculty preceptor for this patient encounter was physically present during the encounter and was fully available. All aspects of the patient interview, examination, medical decision making process, and medical care plan development were reviewed and approved by the faculty preceptor. The faculty preceptor is aware and concurs with the plan as stated in the body of this note and will attest to such by his/her cosignature. ATTENDING NOTE I, Glenny Phan, have independently examined this patient and performed my own physical exam, as well as reviewed the documentation and edited where necessary. I have discussed in detail with the resident / student the findings and plan of treatment as documented by the resident / student and edited their note. I agree with their findings and treatment plan and have edited their documentation. I will continue to follow the patient during this hospital stay. Kiera Kim MD Apr 13, 2021 18:46 GLENNY PHAN MD Apr 13, 2021 21:14
[2021-04-13 20:00] VITALS: BP 108/58
[2021-04-13] MEDS: PANTOPRAZOLE 40MG TAB (PROTONIX) PO SCH (20:21)
[2021-04-13] MEDS: TERAZOSIN 1 MG CAP PO SCH (20:27)
[2021-04-14 04:00] VITALS: BP 91/58
[2021-04-14] MEDS: NS 1,000 ML IV SCH ×3 (04:11→23:30)
[2021-04-14 05:23] LABS: BASO # 0.1 10^3/uL (0.0-0.2); BASO % 0.6 % (0.0-1.0); EOS # 0.1 10^3/uL (0.0-0.5); EOS % 1.4 % (0.0-3.0); HEMATOCRIT 41.1 % (42.0-52.0); HEMOGLOBIN 13.5 g/dl (13.5-17.5); LYMPH # 1.4 10^3/uL (1.5-5.0); LYMPH % 16.1 % (24.0-44.0); MEAN CORPUSCULAR HEMOGLOBIN 28.8 pg (27.0-33.0); MEAN CORPUSCULAR HGB CONC 32.8 g/dl (32.0-36.5); MEAN CORPUSCULAR VOLUME 87.6 fl (80.0-96.0); MONO # 0.8 10^3/uL (0.0-0.8); NEUTROPHILS # 6.5 10^3/uL (1.5-8.5); NEUTROPHILS % 72.3 % (36.0-66.0); PLATELET COUNT, AUTOMATED 205 10^3/uL (150-450); RED BLOOD COUNT 4.69 10^6/uL (4.30-6.10)
[2021-04-14 05:38] LABS: CALCIUM LEVEL 8.2 MG/DL (8.8-10.2); CREATININE FOR GFR 1.39 MG/DL (0.70-1.30); GLOMERULAR FILTRATION RATE 53.3 (>42); MAGNESIUM LEVEL 1.6 MG/DL (1.8-2.4); POTASSIUM SERUM 3.2 MEQ/L (3.5-5.1)
[2021-04-14] MEDS ORDERED: POTASSIUM CHLORIDE 10 MEQ SR TABLET PO ONE ×2 (05:55→07:20)
[2021-04-14] MEDS ORDERED: MAGNESIUM OXIDE 400MG TAB (MAG-OX) PO ONE (05:55)
[2021-04-14] MEDS: SYMBICORT 160/4.5MCG INHALER 6GM INH SCH ×2 (07:26→19:51)
[2021-04-14] MEDS: HumaLOG INSULIN (NovoLOG) PER UNIT SC SCH (07:30)
[2021-04-14 08:00] VITALS: BP 95/52
[2021-04-14] MEDS: MAG SULF 1GM/100ML (MAG RUN) 1 GM in IV 1 EA IV SCH ×2 (08:41→09:49)
[2021-04-14] MEDS: DOCUSATE SODIUM 100MG CAPSULE PO SCH ×2 (08:41→20:51)
[2021-04-14] MEDS: CLOPIDOGREL 75 MG TAB PO SCH (08:41)
[2021-04-14] MEDS: PANTOPRAZOLE 40MG TAB (PROTONIX) PO SCH ×2 (08:41→20:49)
[2021-04-14] MEDS: METOPROLOL TART 50 MG TAB PO SCH (08:41)
[2021-04-14] MEDS: VITAMIN D 1,000 INTERNATIONAL UNITS TABLET PO SCH ×2 (08:41→20:49)
[2021-04-14] MEDS: NICOTINE 14 MG/24 HR TRANSDERMAL TD SCH (08:42)
[2021-04-14] MEDS: METOCLOPRAMIDE 5 MG TAB PO SCH ×3 (12:11→23:31)
--- NOTE | 2021-04-14 13:53 | IPNPDOC ---
Text Note Date of Service The patient was seen on 04/14/21. NOTE Subjective Patient seen and examined at bedside. Patient reports he is feeling about the same as yesterday. Bronchiectasis on further questioning he reports pain feels like if he is eating solid food he does have some discomfort in the stomach, nausea, feels like food is coming back into his esophagus or reflux-like symptoms so he is avoiding solid foods. Denies having any vomiting. He reports tolerating water well does not have any nausea or reflux. He reports having reflux symptoms with aiden carlos/soda. No pain or tenderness in the abdomen. Denies having any diarrhea, constipation, melena, hematochezia. Objective: General: Patient is alert oriented x3, sitting in bed, no apparent distress. Cardiac: S1 and S2 normal, no murmurs appreciated. Respiration: Clear to auscultation bilaterally, no rhonchi or wheezes appreciated. Abdomen: Soft, positive bowel sounds in all 4 quadrants, no tenderness on palpation of the 4 quadrants. Extremities: No pedal edema noted. Labs: Vitals: Temperature: 97, pulse 61, RR 16, BP 95/52 mmHg, oxygen 97% on room air WBC 9, Hb 13.5, HCT 41, platelets 205. BMP: NA 142, K3.2 [replaced orally], CL 107, HCO3 25, BUN 20, creatinine 1.39 [came down from 1.57 since yesterday], mg 1.6 [Mg run x 2] Imaging: Upper GI series with esophagram: Done on 04/13/2021: Reported as: There is gastroesophageal reflux demonstrated to the level of the thoracic inlet. There is t thickened folds in the stomach which may represent gastritis there is no chayo ulcer identified. ASSESSMENT: 75-year-old gentleman with a past medical history of A. fib s/p 2 x ablation on metoprolol and Xarelto, CAD s/p stenting on Plavix,aortic valve replacement, HTN, DM type II, diastolic CHF, BPH, HDL, pulmonary hypertension who presented to ED with decreased appetite and weakness on further testing in the ED patient seems to be in CLAUDIA with a creatinine of 2.24, looks dehydrated with dry skin. He is being admitted to the hospitalist service for further management of his CLAUDIA and to evaluate his decreased appetite and weight loss. PLAN: 1. Decreased appetite and weight loss: - Patient reports to have 80 pound weight loss in the last 2 months. - Patient did have an UGI with esophagogram done yesterday and report listed above. [Which showed no mass or obstruction] - Surgery , was consulted regarding his recent weight loss and not able to tolerate oral solids food. He did recommend starting patient on Reglan for nausea and ensure. He told he will see the patient. We highly appreciate his input and recommendations. - Need to rule out any other age-related malignancies - He might be benefited from having a low-dose CT scan done outpatient given his smoking history to rule out any malignancy of the lung. - FOBT was ordered but not done yet. - He was evaluated by speech therapy today and told he could only tolerate liquid foods. - Patient was encouraged to take as much as oral intake he can and he did show some interest in having some pudding - Patient leukocytosis has been resolved after treating his dehydration. 2. CLAUDIA: -Possibly due to decreased oral intake. -Patient's FENa is 2.4, FE urea is 48.3 suggesting renal etiology -Patient renal function is improving gradually and his creatinine today is 1.39 improving from 1.57. -We will avoid nephrotoxic drugs[will hold allopurinol, statin] 3. A. fib s/p 2X ablation: -Patient would be admitted to PCU and will be on telemetry. -We will continue metoprolol for rate control [with hold parameters for SBP less than 90 mmHg] and Xarelto for anticoagulation. 4. CAD s/p stenting: -We will continue patient on Plavix. 5. NIDDM: -On hypoglycemic protocol. -We will put patient on insulin sliding scale. 6. COPD: -We will continue home inhalers and nicotine patch 7. GI prophylaxis: -Given the patient history of GI bleed in the past. -On blood thinners -We will put patient on pantoprazole 40 mg p.o. daily 8. DVT prophylaxis: -On Xarelto. Disposition: Likely discharge tomorrow VS,Louise, I+O VS, Louise, I+O Laboratory Tests 04/14/21 04:31 Vital Signs Date Time Temp Pulse Resp B/P (MAP) Pulse Ox O2 Delivery O2 Flow Rate FiO2 04/14/21 08:41 61 95/52 04/14/21 08:00 97.0 16 97 Room Air I&O- Last 24 Hours up to 6 AM 04/14/21 06:00 Intake Total 3660 ml Output Total 900 ml Balance 2760 ml GME ATTESTATION GME ATTESTATION My faculty preceptor for this patient encounter was physically present during the encounter and was fully available. All aspects of the patient interview, examination, medical decision making process, and medical care plan development were reviewed and approved by the faculty preceptor. The faculty preceptor is aware and concurs with the plan as stated in the body of this note and will attest to such by his/her cosignature. ATTENDING NOTE I, Glenny Pahn, have independently examined this patient and performed my own physical exam, as well as reviewed the documentation and edited where necessary. I have discussed in detail with the resident / student the findings and plan of treatment as documented by the resident / student and edited their note. I agree with their findings and treatment plan and have edited their documentation. I will continue to follow the patient during this hospital stay. Kiera Kim MD Apr 14, 2021 13:53 GLENNY PHAN MD Apr 14, 2021 15:47
[2021-04-14 16:00] VITALS: BP 129/73
[2021-04-14] MEDS: RIVAROXABAN 20 MG TAB (XARELTO) PO SCH (17:15)
[2021-04-14 20:00] VITALS: BP 100/51
[2021-04-14 20:49] VITALS: BP 100/51
[2021-04-14] MEDS: TERAZOSIN 1 MG CAP PO SCH (20:49)
[2021-04-15 04:00] VITALS: BP 91/55
[2021-04-15 04:58] LABS: BASO % 0.4 % (0.0-1.0); EOS # 0.1 10^3/uL (0.0-0.5); EOS % 0.6 % (0.0-3.0); HEMATOCRIT 37.4 % (42.0-52.0); HEMOGLOBIN 12.2 g/dl (13.5-17.5); LYMPH # 0.9 10^3/uL (1.5-5.0); LYMPH % 8.7 % (24.0-44.0); MEAN CORPUSCULAR HEMOGLOBIN 28.7 pg (27.0-33.0); MEAN CORPUSCULAR HGB CONC 32.6 g/dl (32.0-36.5); MONO % 9.3 % (2.0-8.0); NEUTROPHILS # 8.5 10^3/uL (1.5-8.5); NEUTROPHILS % 80.5 % (36.0-66.0); PLATELET COUNT, AUTOMATED 178 10^3/uL (150-450); RED BLOOD COUNT 4.25 10^6/uL (4.30-6.10); WHITE BLOOD COUNT 10.6 10^3/uL (4.0-10.0)
[2021-04-15 05:20] LABS: BLOOD UREA NITROGEN 12 MG/DL (7-18); CALCIUM LEVEL 7.8 MG/DL (8.8-10.2); CARBON DIOXIDE LEVEL 21 MEQ/L (21-32); CHLORIDE LEVEL 112 MEQ/L (98-107); CREATININE FOR GFR 1.08 MG/DL (0.70-1.30); GLOMERULAR FILTRATION RATE > 60.0 (>42); GLUCOSE, FASTING 108 MG/DL (70-100); MAGNESIUM LEVEL 2.1 MG/DL (1.8-2.4); POTASSIUM SERUM 3.5 MEQ/L (3.5-5.1); SODIUM LEVEL 141 MEQ/L (136-145)
[2021-04-15] MEDS: METOCLOPRAMIDE 5 MG TAB PO SCH (06:15)
[2021-04-15] MEDS: SYMBICORT 160/4.5MCG INHALER 6GM INH SCH (07:24)
[2021-04-15 08:00] VITALS: BP 98/58
[2021-04-15] MEDS: NICOTINE 14 MG/24 HR TRANSDERMAL TD SCH (09:00)
[2021-04-15] MEDS: DOCUSATE SODIUM 100MG CAPSULE PO SCH (09:39)
[2021-04-15] MEDS: VITAMIN D 1,000 INTERNATIONAL UNITS TABLET PO SCH (09:40)
[2021-04-15] MEDS: CLOPIDOGREL 75 MG TAB PO SCH (09:40)
[2021-04-15] MEDS: PANTOPRAZOLE 40MG TAB (PROTONIX) PO SCH (09:40)
[2021-04-15] MEDS: METOPROLOL TART 50 MG TAB PO SCH (09:42)
[2021-04-15] MEDS ORDERED: METO5TAB2 PO (11:09)
--- NOTE | 2021-04-15 17:03 | DS.PDOC ---
Discharge Summary General Date of Admission Apr 12, 2021 at 16:03 Date of Discharge April 15, 2021 Attending Physician: ABDON PHAN MD Discharge Summary PROCEDURES PERFORMED DURING STAY: None. ADMITTING DIAGNOSES: Loss of appetite, weakness, CLAUDIA Hypertensionblood pressure well controlled with medication at home Diabetes mellitus on Metformin and glipizide at home GERD on pantoprazole 20 mg at home BPH Dyslipidemia-on statin at home Moderate pulmonary hypertension Atrial fibrillation status post ablation x2 on Xarelto and metoprolol CAD s/p stenting on Plavix, statin Aortic valve replacement [likely bioprosthetic valve]-on Plavix and Xarelto COPD DISCHARGE DIAGNOSES: Hypertensionblood pressure well controlled with medication at home Diabetes mellitus on Metformin and glipizide at home GERD on pantoprazole 20 mg at home BPH Dyslipidemia-on statin at home Moderate pulmonary hypertension Atrial fibrillation status post ablation x2 on Xarelto and metoprolol CAD s/p stenting on Plavix, statin Aortic valve replacement [likely bioprosthetic valve]-on Plavix and Xarelto COPD COMPLICATIONS/CHIEF COMPLAINT: CLAUDIA. HISTORY OF PRESENT ILLNESS: 75-year-old male patient who presented to the ED with decreased appetite and weakness which has been going on since 2 months and has lost 80 pounds in 2 months. In the ED further investigation showed patient is dehydrated has dry skin and is in CLAUDIA. Patient was admitted under hospitalist service for further management and evaluation. HOSPITAL COURSE: 1. Decreased appetite and weight loss: - Patient reports to have 80 pound weight loss in the last 2 months. - Patient did have an UGI with esophagogram done [Which showed no mass or obstruction] - Surgery , was consulted regarding his recent weight loss and not able to tolerate oral solids food. He did recommend starting patient on Reglan for nausea and ensure. -He was seen by Dr. Esposito And he recommended EGD and colonoscopy to be done as outpatient. - Need to rule out any other age-related malignancies - He might be benefited from having a low-dose CT scan done outpatient given his smoking history to rule out any malignancy of the lung. - Patient leukocytosis has been resolved after treating his dehydration. 2. CLAUDIA: -Possibly due to decreased oral intake. -Patient's FENa is 2.4, FE urea is 48.3 suggesting renal etiology -Patient creatinine was back to baseline on the day of discharge. -We will avoid nephrotoxic drugs[will hold allopurinol, statin] - Will hold diuretics on discharge until seen by his primary care provider or radio interference investigator 3. A. fib s/p 2X ablation: -Patient would be admitted to PCU and will be on telemetry. -We will continue metoprolol for rate control [with hold parameters for SBP less than 90 mmHg] and Xarelto for anticoagulation. 4. CAD s/p stenting: -We will continue patient on Plavix. 5. NIDDM: -On hypoglycemic protocol. -We will put patient on insulin sliding scale. 6. COPD: -We will continue home inhalers and nicotine patch 7. GI prophylaxis: -Given the patient history of GI bleed in the past. -On blood thinners -We will put patient on pantoprazole 40 mg p.o. daily 8. DVT prophylaxis: -On Xarelto. DISCHARGE MEDICATIONS: Please see below. ALLERGIES: Please see below. PHYSICAL EXAMINATION ON DISCHARGE: VITAL SIGNS: Please see below. General: Patient is alert oriented x3, sitting in bed, no apparent distress. Cardiac: S1 and S2 normal, no murmurs appreciated. Respiration: Clear to auscultation bilaterally, no rhonchi or wheezes appreciated. Abdomen: Soft, positive bowel sounds in all 4 quadrants, no tenderness on palpation of the 4 quadrants. Extremities: No pedal edema noted. LABORATORY DATA: Please see below. IMAGING: Imaging: Upper GI series with esophagram: Done on 04/13/2021: Reported as: There is gastroesophageal reflux demonstrated to the level of the thoracic inlet. There is t thickened folds in the stomach which may represent gastritis there is no chayo ulcer identified. PROGNOSIS: Fair ACTIVITY: As tolerated. DIET: Consistent carbohydrate diet DISCHARGE PLAN: DISPOSITION: 01 Home, Self-Care. DISCHARGE INSTRUCTIONS: -Follow-up with PCP in 3 to 5 days. -Follow-up with surgery for EGD and colonoscopy to be done as early as possible -Continue taking Reglan for nausea. - Will stop the use of torsemide until seen by his primary care provider or radio interference investigator this week ITEMS TO FOLLOWUP ON ON OUTPATIENT: Follow-up with PCP in 3 to 5 days Follow-up with surgery in 1 week DISCHARGE CONDITION: Stable. TIME SPENT ON DISCHARGE: 40 minutes Vital Signs/I&Os Vital Signs Date Time Temp Pulse Resp B/P (MAP) Pulse Ox O2 Delivery O2 Flow Rate FiO2 7/3/21 08:00 97.3 62 17 98/58 (71) 98 Room Air I&O- Last 24 Hours up to 6 AM 04/15/21 06:00 Intake Total 4810 ml Balance 4810 ml Laboratory Data Labs 24H Laboratory Tests 2 04/15/21 04:37: Immature Granulocyte % (Auto) 0.5, Neutrophils (%) (Auto) 80.5H, Lymphocytes (%) (Auto) 8.7L, Monocytes (%) (Auto) 9.3H, Eosinophils (%) (Auto) 0.6, Basophils (%) (Auto) 0.4, Neutrophils # (Auto) 8.5, Lymphocytes # (Auto) 0.9L, Monocytes # (Auto) 1.0H, Eosinophils # (Auto) 0.1, Basophils # (Auto) 0.0, Nucleated Red Blood Cells % (auto) 0.0, Anion Gap 8, Glomerular Filtration Rate > 60.0, Calcium Level 7.8L, Magnesium Level 2.1 CBC/BMP Laboratory Tests 04/15/21 04:37 Discharge Medications Scheduled Albuterol Sulf (Albuterol Sulfate) 2.5 Mg/3 Ml Vial.neb, 2.5 MG INH QAM, (Reported) Allopurinol (Allopurinol) 100 Mg Tablet, 100 MG PO DAILY, (Reported) Alprazolam (Alprazolam) 1 Mg Tablet, 1 MG PO QHS, (Reported) Budesonide/Formoterol (Symbicort 160-4.5 Mcg Inhaler) 6 Gm Hfa.aer.ad, 2 PUFF INH BID, (Reported) Cholecalciferol (Vitamin D3) (Vitamin D3) 1,000 Unit Tablet, 1,000 UNITS PO BID, (Reported) Clopidogrel Bisulfate (Plavix) 75 Mg Tablet, 75 MG PO DAILY, (Reported) Glipizide (Glipizide) 5 Mg Tablet, 5 MG PO BID, (Reported) Metoprolol Tartrate (Metoprolol Tartrate) 50 Mg Tab, 50 MG PO DAILY, (Reported) Omeprazole (Omeprazole) 20 Mg Capsule.dr, 20 MG PO BID, (Reported) Potassium Chloride (K-Tab ER) 10 Meq Tablet.er, 30 MEQ PO BID, (Reported) Rivaroxaban (Xarelto) 20 Mg Tab, 20 MG PO DAILY, (Reported) Rosuvastatin Calcium (Rosuvastatin Calcium) 40 Mg Tablet, 40 MG PO QHS, (Reported) Terazosin HCl (Terazosin HCl) 1 Mg Cap, 1 MG PO QHS, (Reported) Scheduled PRN Albuterol Sulf (Albuterol Sulfate) 2.5 Mg/3 Ml Vial.neb, 2.5 MG INH Q4H PRN for SHORTNESS OF BREATH, (Reported) Albuterol Sulfate (Proair Hfa) 8.5 Gm Hfa.aer.ad, 2 PUFF INH Q4H PRN for SOB/WHEEZING, (Reported) Diclofenac Sodium (Voltaren Arthritis Pain) 1 % Gel..gram., 4 GM TOP BID PRN for SHOULDER PAIN, (Reported) APPLIED TO RIGHT SHOULDER Metoclopramide HCl (Metoclopramide HCl) 5 Mg Tablet, 5 MG PO Q6HP PRN for NAUSEA Allergies Coded Allergies: No Known Allergies (Unverified , 03/27/21) Kiera Kim MD Apr 15, 2021 17:03 ABDON PHAN MD Apr 15, 2021 17:55
== END 2021-04-15 12:08 | disposition home health service (06) | DRG 684 ==
LOC: M ED 10:00 → M ED INP 16:03 → CANRESERV 16:34 → ENRESERV 16:34 → M PCU 17:51
PROVIDERS: ADMIT Internal Medicine; ATTEND Internal Medicine
DX: N17.9 Acute kidney failure, unspecified (principal); R63.0 Anorexia; I10 Essential (primary) hypertension; E11.9 Type 2 diabetes mellitus without complications; K21.9 Gastro-esophageal reflux disease without esophagitis; N40.0 Benign prostatic hyperplasia without lower urinary tract symptoms; E78.5 Hyperlipidemia, unspecified; I27.20 Pulmonary hypertension, unspecified; R53.1 Weakness; I48.91 Unspecified atrial fibrillation; I25.10 Atherosclerotic heart disease of native coronary artery without angina pectoris; Z95.3 Presence of xenogenic heart valve; J44.9 Chronic obstructive pulmonary disease, unspecified; Z95.0 Presence of cardiac pacemaker; F17.210 Nicotine dependence, cigarettes, uncomplicated; Z95.5 Presence of coronary angioplasty implant and graft; Z79.01 Long term (current) use of anticoagulants; Z79.84 Long term (current) use of oral hypoglycemic drugs; Z79.899 Other long term (current) drug therapy; Z20.822 Contact with and (suspected) exposure to COVID-19

== ENCOUNTER → 2021-04-28 | Outpatient (CLI) | payer OTHER ==
[~2021-04-28] MED LIST changes: +ALPR1TAB3 PO; +D31000TA2 PO; +DICL20GE TOP; +METO5TAB2 PO
== END ==
LOC: M LABSMTC 09:34
PROVIDERS: ATTEND Anesthesiology
DX: Z01.812 Encounter for preprocedural laboratory examination (principal); Z20.822 Contact with and (suspected) exposure to COVID-19

== ENCOUNTER 2021-05-03 06:40 | Day surgery (SDC) | payer MEDICARE ==
[~2021-05-03] VITALS: Ht 182.9 cm; Wt 85.3 kg
[~2021-05-03 06:40] MED LIST changes: +NS 1,000 ML IV ONE
[2021-05-03] MEDS ORDERED: fentaNYL 100 MCG/2 ML INJECTION (J3010) As Ordered ONE (07:58)
[2021-05-03] MEDS ORDERED: LIDOCAINE 2% 100MG/5ML SDV (FOR ANES.) As Ordered ONE (08:01)
[2021-05-03] MEDS ORDERED: propofoL 500 MG/50 ML VIAL As Ordered ONE (08:40)
[2021-05-03] MEDS ORDERED: ePHEDrine SULFATE 25 MG/5 ML(5MG/ML) SYRINGE As Ordered ONE (08:49)
--- NOTE | 2021-05-03 09:21 | ROOR ---
Patient Name: Prateek Mccabe Procedure Date: 05/03/2021 8:16 AM Date of : 1945 Age: 75 Room: [facility] Gender: Male Note Status: Finalized Procedure: Upper GI endoscopy Indications: Weight loss Providers: DO Priya Woods MD: Manoj Mac MD Requesting Provider: Medicines: Propofol per Anesthesia Complications: No immediate complications. Procedure: Pre-Anesthesia Assessment: - Prior to the procedure, a History and Physical was performed, and patient medications and allergies were reviewed. The patient is competent. The risks and benefits of the procedure and the sedation options and risks were discussed with the patient. All questions were answered and informed consent was obtained. Patient identification and proposed procedure were verified by the physician, the nurse, the resolution expert and the aviation safety equipment technician in the endoscopy suite. Mental Status Examination: alert and oriented. Airway Examination: normal oropharyngeal airway and neck mobility. Respiratory Examination: clear to auscultation. CV Examination: normal. Prophylactic Antibiotics: The patient does not require prophylactic antibiotics. Prior Anticoagulants: The patient has taken no previous anticoagulant or antiplatelet agents. ASA Grade Assessment: III - A patient with severe systemic disease. After reviewing the risks and benefits, the patient was deemed in satisfactory condition to undergo the procedure. The anesthesia plan was to use monitored anesthesia care (MAC). Immediately prior to administration of medications, the patient was re-assessed for adequacy to receive sedatives. The heart rate, respiratory rate, oxygen saturations, blood pressure, adequacy of pulmonary ventilation, and response to care were monitored throughout the procedure. The physical status of the patient was re-assessed after the procedure. The Endoscope was introduced through the mouth, and advanced to the second part of duodenum. The upper GI endoscopy was accomplished without difficulty. The patient tolerated the procedure well. Findings: Scattered moderate inflammation characterized by congestion (edema), erythema and friability was found in the entire examined stomach. Biopsies were taken with a cold forceps for histology. Estimated blood loss was minimal. Impression: - Gastritis. Biopsied. Recommendation: - Patient has a contact number available for emergencies. The signs and symptoms of potential delayed complications were discussed with the patient. Return to normal activities tomorrow. Written discharge instructions were provided to the patient. - Await pathology results. - Return to my office at appointment to be scheduled. Procedure Code(s): --- Professional --- 98958, Esophagogastroduodenoscopy, flexible, transoral; with biopsy, single or multiple Diagnosis Code(s): --- Professional --- K29.70, Gastritis, unspecified, without bleeding R63.4, Abnormal weight loss CPT copyright 2019 [employer]. All rights reserved. The codes documented in this report are preliminary and upon insurance coder review may be revised to meet current compliance requirements. Titus Esposito DO 05/03/2021 9:20:36 AM Electronically signed by Titus Esposito DO Number of Addenda: 0 Note Initiated On: 05/03/2021 8:16 AM Estimated Blood Loss: Estimated blood loss: none.
--- NOTE | 2021-05-03 09:26 | ROOR ---
Patient Name: Prateek Mccabe Procedure Date: 05/03/2021 8:17 AM Date of : 1945 Age: 75 Room: [facility] Gender: Male Note Status: Finalized Procedure: Colonoscopy Indications: Weight loss Providers: DO Priya Woods MD: Manoj Mac MD Requesting Provider: Medicines: Propofol per Anesthesia Complications: No immediate complications. Procedure: Pre-Anesthesia Assessment: - Prior to the procedure, a History and Physical was performed, and patient medications and allergies were reviewed. The patient is competent. The risks and benefits of the procedure and the sedation options and risks were discussed with the patient. All questions were answered and informed consent was obtained. Patient identification and proposed procedure were verified by the physician, the nurse, the medical physics teacher and the senior telecommunications technician in the endoscopy suite. Mental Status Examination: alert and oriented. Airway Examination: normal oropharyngeal airway and neck mobility. Respiratory Examination: clear to auscultation. CV Examination: normal. Prophylactic Antibiotics: The patient does not require prophylactic antibiotics. Prior Anticoagulants: The patient has taken no previous anticoagulant or antiplatelet agents. ASA Grade Assessment: III - A patient with severe systemic disease. After reviewing the risks and benefits, the patient was deemed in satisfactory condition to undergo the procedure. The anesthesia plan was to use monitored anesthesia care (MAC). Immediately prior to administration of medications, the patient was re-assessed for adequacy to receive sedatives. The heart rate, respiratory rate, oxygen saturations, blood pressure, adequacy of pulmonary ventilation, and response to care were monitored throughout the procedure. The physical status of the patient was re-assessed after the procedure. The Colonoscope was introduced through the anus and advanced to the cecum, identified by appendiceal orifice and ileocecal valve. The colonoscopy was performed without difficulty. The patient tolerated the procedure well. Findings: Multiple semi-pedunculated polyps were found in the transverse colon and ascending colon. The polyps were 4 to 10 mm in size. These polyps were removed with a hot snare. Resection and retrieval were complete. Estimated blood loss was minimal. A less than 5 mm polyp was found in the ascending colon. The polyp was semi-pedunculated. The polyp was removed with a jumbo cold forceps. Resection and retrieval were complete. To prevent bleeding after the polypectomy, one hemostatic clip was successfully placed. There was no bleeding at the end of the procedure. A few small-mouthed diverticula were found in the sigmoid colon. Non-bleeding internal hemorrhoids were found during retroflexion. The hemorrhoids were Grade II (internal hemorrhoids that prolapse but reduce spontaneously). Impression: - Multiple 4 to 10 mm polyps in the transverse colon and in the ascending colon, removed with a hot snare. Resected and retrieved. - One less than 5 mm polyp in the ascending colon, removed with a jumbo cold forceps. Resected and retrieved. Clip was placed. - Diverticulosis in the sigmoid colon. - Non-bleeding internal hemorrhoids. Recommendation: - Patient has a contact number available for emergencies. The signs and symptoms of potential delayed complications were discussed with the patient. Return to normal activities tomorrow. Written discharge instructions were provided to the patient. - Await pathology results. - Repeat colonoscopy in 1 year for surveillance of multiple polyps. - Return to my office at appointment to be scheduled. Procedure Code(s): --- Professional --- 58057, Colonoscopy, flexible; with removal of tumor(s), polyp(s), or other lesion(s) by snare technique 42159, 59, Colonoscopy, flexible; with biopsy, single or multiple Diagnosis Code(s): --- Professional --- K63.5, Polyp of colon K64.1, Second degree hemorrhoids R63.4, Abnormal weight loss K57.30, Diverticulosis of large intestine without perforation or abscess without bleeding CPT copyright 2019 [employer]. All rights reserved. The codes documented in this report are preliminary and upon tube washer review may be revised to meet current compliance requirements. Titus Esposito DO 05/03/2021 9:25:53 AM Electronically signed by Titus Esposito DO Number of Addenda: 0 Note Initiated On: 05/03/2021 8:17 AM Estimated Blood Loss: Estimated blood loss was minimal.
[2021-05-03 09:49] VITALS: BP 118/55
[2021-05-03] MEDS ORDERED: PHENYLephrine 500MCG 5ML (100MCG/ML) SYRINGE As Ordered ONE (11:16)
== END 2021-05-03 09:51 | disposition home or self-care (01) ==
LOC: M OPP 06:40
PROVIDERS: ATTEND Surgery
DX: K57.30 Diverticulosis of large intestine without perforation or abscess without bleeding (principal); K64.1 Second degree hemorrhoids; Z86.010 Personal history of colon polyps; R19.7 Diarrhea, unspecified; Z80.0 Family history of malignant neoplasm of digestive organs; D12.2 Benign neoplasm of ascending colon; D12.3 Benign neoplasm of transverse colon; K29.70 Gastritis, unspecified, without bleeding; K63.4 Enteroptosis; R11.0 Nausea; R63.4 Abnormal weight loss; Z79.899 Other long term (current) drug therapy
CPT/HCPCS: 43239; 45380; 45385; 88305; J2370; J3010

== ENCOUNTER 2021-05-05 07:07 | Inpatient (IN) | payer MEDICARE ==
[~2021-05-05] VITALS: Ht 182.9 cm; Wt 92.0 kg
[~2021-05-05 07:07] MED LIST changes: -NS 1,000 ML IV ONE
[2021-05-05] MEDS ORDERED: MORPHINE 4 MG/ML 1ML VIAL/SYRINGE (J2270) IV ONE (08:10)
[2021-05-05] MEDS ORDERED: ONDANSETRON 4MG/2ML VIAL IV ONE (08:10)
[2021-05-05 08:55] LABS: BASO # 0.1 10^3/uL (0.0-0.2); BASO % 0.4 % (0.0-1.0); EOS % 0.1 % (0.0-3.0); HEMATOCRIT 43.6 % (42.0-52.0); HEMOGLOBIN 14.6 g/dl (13.5-17.5); MEAN CORPUSCULAR HEMOGLOBIN 28.2 pg (27.0-33.0); MEAN CORPUSCULAR HGB CONC 33.5 g/dl (32.0-36.5); MEAN CORPUSCULAR VOLUME 84.3 fl (80.0-96.0); MONO # 1.1 10^3/uL (0.0-0.8); MONO % 7.8 % (2.0-8.0); NEUTROPHILS # 11.8 10^3/uL (1.5-8.5); NEUTROPHILS % 84.1 % (36.0-66.0); PLATELET COUNT, AUTOMATED 152 10^3/uL (150-450); RED BLOOD COUNT 5.17 10^6/uL (4.30-6.10)
[2021-05-05] MEDS ORDERED: NS 500 ML IV ONE (09:00)
[2021-05-05] MEDS ORDERED: KCL 10MEQ/100ML SWI (KRUN) 10 MEQ in IV 1 EA IV ONE ×2 (09:05→11:00)
[2021-05-05 09:15] LABS: ALBUMIN 2.9 GM/DL (3.2-5.2); BILIRUBIN,DIRECT 0.4 MG/DL (0.0-0.2); BILIRUBIN,TOTAL 1.1 MG/DL (0.2-1.0); TOTAL PROTEIN 6.5 GM/DL (6.4-8.2)
--- NOTE | 2021-05-05 09:26 | REP ---
INDICATION: colonoscopy 2 days, sev lower abd pain leukocytosis COMPARISON: Comparison abdominal CT imaging is from March 27, 2021.. TECHNIQUE: Helical scanning is acquired and 3 mm axial images were reformatted. Coronal and sagittal MPR images were generated and reviewed. FINDINGS: Preliminary digital garbage depot worker radiograph demonstrates an unremarkable bowel gas pattern. There is a metallic linear density projecting over the right colon. On axial CT images, the lung bases are clear. There is no evidence of pleural effusion or lung base infiltrate. A pacemaker is noted in the right heart and there is evidence of an aortic valve replacement. Mitral annular calcification and coronary artery vascular calcification are noted. There is no evidence of free intraperitoneal air to suggest perforation. No ascites is visible. There is no focal liver or spleen lesion. No abnormality is noted in the pancreas. Cholelithiasis is again noted with small granular opacities in the dependent portion the gallbladder. Normal adrenal glands are seen. The kidneys appear morphologically intact. There is a peripheral cyst of the lower pole of the left kidney unchanged. No retroperitoneal mass or adenopathy is seen. Normal caliber aorta. The linear opacity seen on the garbage depot worker view is noted on axial CT images to be within the ascending colon consistent with a endoscopically placed mucosal clip. No focal mural thickening, bowel obstruction, or free air is seen. There is left colonic diverticulosis without CT evidence of diverticulitis. There are prostate calcifications. Urinary bladder and seminal vesicles are unremarkable. No pelvic mass or adenopathy is seen. IMPRESSION: 1. No evidence of free intraperitoneal air or ascites. 2. Left colonic diverticulosis without CT evidence of diverticulitis. 3. Endoscopically placed mucosal clip in the ascending colon. 4. Cholelithiasis. No acute intra-abdominal abnormality seen <Electronically signed by Raul Romero > 05/05/21 [id number]
--- NOTE | 2021-05-05 09:46 | REP ---
INDICATION: ro free air, colonoscopy 2 days ago severe pain. COMPARISON: Comparison chest x-ray April 12, 2021.. TECHNIQUE: Upright chest, upright abdomen, and supine abdomen films. FINDINGS: Upright chest radiograph is unremarkable. There is no evidence of infiltrate or free subdiaphragmatic air. Heart size is normal. Pulmonary vasculature is not increased. Pleural angles are sharp. A pacemaker is visible in the right heart and the patient is status post aortic valve replacement. There are left coronary artery stents. A respiratory inhaler is noted superimposed on the left chest. Supine and erect views of the abdomen demonstrate a normal bowel gas pattern. The psoas margins and the flank stripes are intact. There is no evidence of mass, organomegaly, or pathologic calcification. There is a an endoscopically placed mucosal clip in the right colon as seen on CT. IMPRESSION: Negative acute abdominal series. <Electronically signed by Raul Romero > 05/05/21 [id number]
[2021-05-05] MEDS ORDERED: fentaNYL 100 MCG/2 ML INJECTION (J3010) IV ONE (10:20)
[2021-05-05 10:49] LABS: MAGNESIUM LEVEL 1.7 MG/DL (1.8-2.4)
[2021-05-05] MEDS ORDERED: DEXTROSE 50% 50 ML SYRINGE IV PRN (10:50)
[2021-05-05] MEDS ORDERED: GLUCOSE 4GM CHEW TABLET PO PRN (10:50)
[2021-05-05] MEDS ORDERED: ACETAMINOPHEN TAB 650MG DOSE (2X325MG) PO PRN (10:50)
[2021-05-05] MEDS ORDERED: GLUCAGON INJ 1MG VIAL SC PRN (10:50)
[2021-05-05] MEDS ORDERED: METO5TAB2 PO (11:08)
--- NOTE | 2021-05-05 11:38 | REP ---
INDICATION: CLAUDIA. COMPARISON: CT abdomen pelvis 05/05/2021 TECHNIQUE: Standard sonography of the kidneys with some color imaging. FINDINGS: Sonographic evaluation of the kidneys demonstrate the right 11 x 5.1 x 5.9 cm. There is a lobulated contour to the kidney some of which is due to peripheral cysts; in the upper pole 12 x 9 x 8 mm and in the lower pole 1.5 x 1 x 1.4 cm. There is no hydronephrosis or hydroureter. Sinus lipomatosis is seen. No definite abnormal calcifications. Left kidney is 11 x 5.6 x 6.5 cm. There are 3 peripheral cysts; 1 in the upper pole cortex 1.1 x 1.1 x 1 cm, laterally in the interpolar region 1.1 x 0.8 x 1.2 cm and inferiorly and medially is a 1.6 x 1.6 x 1.3 cm cyst. There is no hydronephrosis, hydroureter nor any solid renal mass. Both kidneys show cortex less echogenic than the adjacent liver. Bladder shows some mild trabeculations. There is evidence for bilateral ureteral jet phenomenon. No bladder debris or gross mass. There is mucosal fold to the anterior superior bladder. IMPRESSION: 1. Bilateral peripheral renal cysts without solid mass, hydronephrosis, atrophy or other acute renal finding. The cortical echogenicity is normal. 2. Bladder with some trabeculation of the samano and a mucosal fold anterior and superiorly, no stone, mass or debris. Bilateral ureteral jets were observed. <Electronically signed by Mc Motley > 05/05/21 0215
[2021-05-05] MEDS: NS 1,000 ML IV SCH ×2 (11:42→17:32)
[2021-05-05] MEDS ORDERED: ALBUTEROL SULFATE 2.5 MG/0.5 ML INH NEB SOLN INH PRN (11:55)
[2021-05-05] MEDS ORDERED: traMADol 50 MG TAB PO PRN (11:55)
[2021-05-05] MEDS ORDERED: MAG SULF 1GM/100ML (MAG RUN) 1 GM in IV 1 EA IV ONE (12:00)
--- NOTE | 2021-05-05 13:07 | HPE ---
HISTORY AND PHYSICAL DATE OF ADMISSION: 05/05/2021 Patient is seen at 11:30 a.m. in the emergency room on 05/05/2021 by me. CHIEF COMPLAINT: Abdominal pain with nausea and vomiting. HISTORY OF PRESENT ILLNESS: Mr. Mccabe is a 75-year-old gentleman who has a past medical history of atrial fibrillation, status post ablation, for which he is on Xarelto, ventricular paced. He has a history of coronary artery disease with stenting as well as aortic valve replacement with bioprosthetic valve. He is a hda-bsoedux-zkthvsdxx diabetic who also has chronic diastolic heart failure. Patient has had increasing abdominal pain, which started early this morning. This has been associated with nausea and vomiting. The pain is localized in the lower abdominal quadrants and sharp in nature. At the moment I saw him in the emergency room, it has been improved after intravenous (IV) morphine. Pertinent history is that the patient recently had a colonoscopy with polypectomies done [address] Esposito. This was done to evaluate his ongoing weight loss. Patient claims he has had a 70-80 pound weight loss over the last 2 months and has had diminished appetite. He denies having any bleeding. His hemoglobin levels have been fine. A CT of the abdomen and pelvis was done in the emergency room without contrast. This showed no evidence of any acute abdominal pathology. Diagnostic findings indicated the patient had an acute kidney injury with a creatinine of 2, hypokalemia with a potassium of 2.6, hypomagnesia with a magnesium of 1.7, and some mild leukocytosis. For these reasons he is admitted to the hospitalist service for further evaluation. ALLERGIES: No known drug allergies (NKDA). MEDICAL HISTORY: Notable for: 1. Hypertension. 2. Kmj-keobwxe-yuiviscsz diabetes mellitus, type 2. 3. Gastroesophageal reflux disease (GERD). 4. BPH. 5. Hyperlipidemia. 6. Pulmonary hypertension, moderate in character. 7. Atrial fibrillation, status post ablation. 8. Chronic anticoagulation with Xarelto. 9. Coronary artery disease with stenting. 10. Aortic valve replacement. 11. Chronic obstructive pulmonary disease (COPD), not oxygen or steroid dependent. PAST SURGICAL HISTORY: Notable for: 1. Left knee arthroscopy. 2. Left partial lateral meniscectomy. 3. Pacemaker placement. 4. Aortic valve replacement. 5. Left medial meniscectomy. SOCIAL HISTORY: Patient is . He lives at home with his and his son. 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 He smokes about a half a pack per day. Does not use any alcohol or illicit drugs. He lists himself as a DO NOT RESUSCITATE with his , Sunita, being his surrogate medical decision maker. Mother at age 49 from complications of diabetes. Father in his mid 80s from complications of colon cancer and emphysema, and he also had prostate cancer. REVIEW OF SYSTEMS: Positive for weight loss, which has been ongoing for the last several months, dry heaves, and abdominal pain. Remainder of systems reviewed with patient are negative. On examination today, the patient's temperature is 96.2, pulse is 66, respirations 18, blood pressure is 130/73, oxygen saturation is 97% on room air. General: The patient is alert and oriented times three. He is resting comfortable on a stretcher. He reports his abdominal pain is improved following IV morphine. His skin is intact and warm to touch. He has some mild upper extremity bruising, which appears to be in various stages of healing. His head is atraumatic. His pupils are symmetric and react to light. Oropharynx is clear. Oral mucosa is fairly dry. His neck is supple. No palpable lymphadenopathy. Lungs sounds are appreciated without rales, wheezes, or rhonchi. Heart is S1, S2, Loud S2 consistent with aortic valve replacement. His abdomen is soft with some mild tenderness. Abdomen is not distended. He has active bowel sounds in all four quadrants. Extremities without any cyanosis, clubbing, or edema. Neurologic exam: Cranial nerves II-XII are grossly intact without any focal neurologic deficits. The patient's gait is not tested. LABORATORY DATA: Glucose 151, sodium 135, potassium 2.6, chloride 89, bicarbonate 25, BUN 29, creatinine is 2, lactic acid 1.2. Magnesium is 1.7. Bilirubin is 1.1, AST 17, ALT 15, alkaline phosphatase 80, albumin 2.9, lipase 83. White blood cell count is 14,000, hemoglobin 14.6, hematocrit 43.6, platelet count 152,000. COVID swab is pending at this time. IMAGING STUDIES: CT of the abdomen and pelvis showed no evidence of free intraperitoneal air or ascites. Left colonic diverticulosis with CT evidence of diverticulitis. Endoscopically placed mucosa clip in the ascending colon. Cholelithiasis. No acute intra-abdominal abnormality is seen. Renal ultrasound shows bilateral peripheral renal cysts without solid mass, hydronephrosis, atrophy, or other acute renal finding. Bladder with some trabeculation of the wall and mucosal fold anterior and superior. No stone, mass, or debris. Bilateral ureteral jets were observed. Patient's EKG showed a ventricular paced rhythm. A KUB showed negative acute abdominal series. Chest x-ray was unremarkable. IMPRESSION: 1. Acute kidney injury, likely secondary to colon prep. 2. Hypokalemia. 3. Hypomagnesia. PLAN: 1. Patient will be admitted to inpatient status. He will be monitored on telemetry given his hypokalemia. His potassium will be supplemented. We will check a fractional secretion of sodium ratio. Patient's magnesium will be supplemented also. 2. Leukocytosis. This is likely secondary to reactive. I do not feel he has an infection. No antibiotics will be administered at this time. 3. Abdominal pain. It appears the patient is likely having abdominal pain syndrome. We will use Tramadol and IV morphine for symptom management. General surgery has been notified by the emergency room (ER) department. We will consult Dr. Rubio for any further recommendations, although it does not appear that there is any acute surgical event going on. 4. Yyn-fwwsfnq-gkbnroqvj diabetes mellitus, type 2. Patient's metformin and glipizide will be held, and he will be placed on a sliding scale as well as diabetic diet. 5. Chronic obstructive pulmonary disease (COPD) without exacerbation. This is stable. Patient will have his nebulizers ordered. 6. Coronary artery disease, status post stenting, as well as chronic atrial fibrillation. Patient is currently ventricular (V) paced. We will hold his Xarelto given his renal dysfunction. We will continue with his Plavix. Once his kidneys improve, we can resume his Xarelto in the morning. Patient will be a DO NOT RESUSCITATE, DO NOT INTUBATE per my conversation with him.
[2021-05-05] MEDS: MORPHINE 2 MG/ML 1ML VIAL (J2270) IV PRN ×2 (13:30→19:56)
[2021-05-05] MEDS: METOPROLOL TART 50 MG TAB PO SCH (14:56)
[2021-05-05] MEDS: CLOPIDOGREL 75 MG TAB PO SCH (14:56)
[2021-05-05 15:01] LABS: RSV AMPLIFICATION NEGATIVE (NEGATIVE)
[2021-05-05] MEDS: VITAMIN D 1,000 INTERNATIONAL UNITS TABLET PO SCH ×2 (15:31→19:54)
[2021-05-05] MEDS: allopurinoL 100 MG TAB PO SCH (15:31)
[2021-05-05 16:45] VITALS: BP 139/79
[2021-05-05 18:15] LABS: APPEARANCE, URINE HAZY (CLEAR); BACTERIA, URINE AUTO NEGATIVE (NEGATIVE); BILIRUBIN, URINE AUTO NEGATIVE (NEGATIVE); BLOOD, URINE BLOOD 2+ (NEGATIVE); COLOR, URINE YELLOW (YELLOW); GLUCOSE, URINE (UA) AUTO NEGATIVE (NEGATIVE); KETONE, URINE AUTO TRACE mg/dL (NEGATIVE); LEUKOCYTE ESTERASE, URINE AUTO NEGATIVE (NEGATIVE); MUCUS, URINE SMALL (NEGATIVE); NITRITE, URINE AUTO NEGATIVE (NEGATIVE); PROTEIN, URINE AUTO 1+ mg/dL (NEGATIVE); RBC, URINE AUTO 4 /HPF (0-3); SPECIFIC GRAVITY URINE AUTO 1.009 (1.002-1.035); SQUAMOUS EPITHELIAL CELL UR AU 0 /HPF (0-6); UROBILINOGEN, URINE AUTO 0.2 mg/dL (0.0-2.0); WBC, URINE AUTO 3 /HPF (0-3)
[2021-05-05 18:37] LABS: CREATININE,RANDOM URINE 85.3 MG/DL; SODIUM,RANDOM URINE < 10 MEQ/L
[2021-05-05] MEDS: SYMBICORT 160/4.5MCG INHALER 6GM INH SCH (19:39)
[2021-05-05] MEDS: ALPRAZolam 0.5 MG TAB PO SCH (19:55)
[2021-05-05 20:01] VITALS: BP 120/66
[2021-05-05] MEDS: HumaLOG INSULIN (NovoLOG) PER UNIT SC SCH (21:00)
[2021-05-06] VITALS (10 sets, daily range): BP systolic 102–125; BP diastolic 57–70
[2021-05-06] MEDS: MORPHINE 2 MG/ML 1ML VIAL (J2270) IV PRN ×4 (00:33→16:17)
[2021-05-06 05:54] LABS: HEMATOCRIT 39.1 % (42.0-52.0); HEMOGLOBIN 12.7 g/dl (13.5-17.5); MEAN CORPUSCULAR HEMOGLOBIN 27.7 pg (27.0-33.0); MEAN CORPUSCULAR HGB CONC 32.5 g/dl (32.0-36.5); MEAN CORPUSCULAR VOLUME 85.4 fl (80.0-96.0); PLATELET COUNT, AUTOMATED 126 10^3/uL (150-450); RED BLOOD COUNT 4.58 10^6/uL (4.30-6.10); WHITE BLOOD COUNT 11.4 10^3/uL (4.0-10.0)
[2021-05-06 06:21] LABS: CALCIUM LEVEL 8.5 MG/DL (8.8-10.2); CREATININE FOR GFR 1.58 MG/DL (0.70-1.30); MAGNESIUM LEVEL 1.8 MG/DL (1.8-2.4); POTASSIUM SERUM 2.9 MEQ/L (3.5-5.1)
[2021-05-06] MEDS: KCL 20MEQ in NS 1000ML 1,000 ML IV SCH ×2 (07:46→17:51)
[2021-05-06] MEDS: SYMBICORT 160/4.5MCG INHALER 6GM INH SCH ×2 (07:48→20:08)
[2021-05-06] MEDS: VITAMIN D 1,000 INTERNATIONAL UNITS TABLET PO SCH ×2 (08:59→20:17)
[2021-05-06] MEDS: allopurinoL 100 MG TAB PO SCH (08:59)
[2021-05-06] MEDS ORDERED: POTASSIUM CHLORIDE 10 MEQ SR TABLET PO ONE (09:00)
[2021-05-06] MEDS: CLOPIDOGREL 75 MG TAB PO SCH (09:00)
[2021-05-06] MEDS: METOPROLOL TART 50 MG TAB PO SCH (09:23)
--- NOTE | 2021-05-06 11:59 | CR.PDOC ---
General Surgery Consultation Date of Consultation 05/05/21 History and Physical CONSULT REPORT FOR: hospitalist service (Dr. Christensen) REASON FOR CONSULTATION: abdominal pain 2 days after colonoscopy HISTORY OF PRESENT ILLNESS: Patient is a 75 M who drove himself to the emergency room early this morning complaining of severe abdominal pain. He had endoscopy and colonoscopy done by Dr. Esposito 2 days prior for work-up for his complaints of unexplained weight loss, abdominal fullness, anorexia. He reports he was not having any pain after the procedure and the day after. His pain started abruptly last evening and built up from there. He is pointing to the right and left of the infraumbilical area. He reports that this is constant. No associated nausea or vomiting or diarrhea or bloody bowel movements. This persisted and worsened early in the morning and he was doubled over. He then drove about an hour to the emergency room. He denies any prior episodes of similar symptoms. No associated fevers or chills. No sick contacts or recent travel. He was worked up in the emergency room essentially had a nonrevealing work-up save for mild leukocytosis. At the time that I saw him he tells me his pain is better with the narcotic pain medication but not fully resolved. He points to the right paramedian area, left paramedian area where he hurts most around the umbilicus. Putting pressure around the area somewhat makes it better, not worse. He denies any pain, discomfort over the right upper quadrant area or epigastric area. PAST MEDICAL HISTORY: 1. Hypertension 2. Diabetes 3. GERD 4. BPH 5. Atrial fibrillation status post ablation x2 on Xarelto 6. CAD status post stenting on Plavix and statins 7. History of aortic valve replacement . PAST SURGICAL HISTORY: INCLUDES: 1. Left knee arthroscopy 2. Pacemaker placement 3. Aortic valve replacement 4. Upper endoscopy and colonoscopy 2 days prior. ALLERGIES: Please see below. HOME MEDICATIONS: Please see below. REVIEW OF SYSTEMS: Patient is reporting prominent symptoms of weight loss, nothing tastes well for him even the prior foods that he enjoys like hamburger or [place] fries. He would take a few bites and he would feel that he would throw up thereafter so he would stop eating. He denies any chronic abdominal pain. He has a significant cardiac history including aortic valve replacement history. He has a pacemaker. He is on anticoagulation for atrial fibrillation as well as Plavix and statins. He denies any ongoing chest pain, shortness of breath. He denies any fevers or chills. He denies any dysuria or hematuria. PHYSICAL EXAMINATION: VITALS SIGNS: Please see below. GENERAL APPEARANCE: Patient still looks mildly uncomfortable, laying on his right side. SKIN: Warm and dry. HEENT: Normocephalic atraumatic. LUNGS: Clear to auscultation bilaterally. No wheezing appreciated. HEART: No chest wall abnormalities. Regular rate and rhythm with no murmurs appreciated. ABDOMEN: Abdomen is nondistended, soft, relatively flat. Loose skin and pannus from weight loss. He has some mild vague tenderness only on deep palpation around the umbilicus without any rebound or guarding slightly radiates to the right paramedian area.. EXTREMITIES: No significant extremity edema ANCILLARIES: . LABORATORY DATA: Please see below. IMAGING STUDIES: CT scan abdomen and pelvis. I reviewed the study and relatively nonrevealing. He has no evidence of a clip that was placed over at the early ascending colon. There is no evidence of any ongoing inflammation, perforation, free fluid related to the recent colonoscopy colonoscopy IMPRESSION AND PLAN: Abdominal pain Unclear etiology. Seems to be possibly gas trapping from the colonoscopy but he is relatively nondistended. He has had a recent endoscopy showing chronic gastritis. Path from the biopsies are pending. His symptoms are well away from the epigastric area. He also has evidence of cholelithiasis with no ongoing signs of inflammation on CT and his symptoms are nowhere near the right upper quadrant area. Does not seem to correlate with possibility of appendicitis. Examination shows a fairly benign abdomen save for some area of tenderness deep in the or at the umbilical area. Which may possibly correlate where where the clip was but there is no signs of any inflammation there. I agree that there is no need for antibiotics. Watchful waiting for the symptoms to either resolve or further develop that we can characterize the source. For now I think he can eat if he wants to eat. I do not see any need for urgent or emergent surgical intervention at this point. Vital Signs Vital Signs Date Time Temp Pulse Resp B/P (MAP) Pulse Ox O2 Delivery O2 Flow Rate FiO2 05/05/21 13:40 17 05/05/21 08:00 05/05/21 07:07 96.2 66 97 Room Air Laboratory Data Labs 24H Laboratory Tests 2 05/05/21 08:39: Immature Granulocyte % (Auto) 0.6, Neutrophils (%) (Auto) 84.1H, Lymphocytes (%) (Auto) 7.0L, Monocytes (%) (Auto) 7.8, Eosinophils (%) (Auto) 0.1, Basophils (%) (Auto) 0.4, Neutrophils # (Auto) 11.8H, Lymphocytes # (Auto) 1.0L, Monocytes # (Auto) 1.1H, Eosinophils # (Auto) 0.0, Basophils # (Auto) 0.1, Nucleated Red Blood Cells % (auto) 0.0, Magnesium Level 1.7L, Total Bilirubin 1.1H, Direct Bilirubin 0.4H, Aspartate Amino Transf (AST/SGOT) 17, Alanine Aminotransferase (ALT/SGPT) 15, Alkaline Phosphatase 80, Total Protein 6.5, Albumin 2.9L, Albumin/Globulin Ratio 0.8, Lipase 83 05/05/21 08:43: POC Glucose (Misc Panel) 151H, POC Sodium (Misc Panel) 135L, POC Potassium (Misc Panel) 2.6*L, POC Chloride (Misc Panel) 89L, POC Total CO2 (Misc Panel) 25.0, POC Blood Urea Nitrogen (Misc Panel 29H, POC Ionized Calcium (Misc Panel) 4.1L, POC Creatinine (Misc Panel) 2.0H, POC Hematocrit (Misc Panel) 47.0 05/05/21 10:40: Lactic Acid Level 1.2 05/05/21 14:07: Coronavirus (COVID-19)(PCR) NEGATIVE, Influenza Type A (RT-PCR) NEGATIVE, Influenza Type B (RT-PCR) NEGATIVE, Respiratory Syncytial Virus (PCR) NEGATIVE CBC/BMP Laboratory Tests 05/05/21 08:39 Microbiology Microbiology 05/05/21 Blood Culture, Received Pending 05/05/21 Blood Culture, Received Pending Home Medications Scheduled Albuterol Sulf (Albuterol Sulfate) 2.5 Mg/3 Ml Vial.neb, 2.5 MG INH QAM, (Reported) Allopurinol (Allopurinol) 100 Mg Tablet, 100 MG PO DAILY, (Reported) Alprazolam (Alprazolam) 1 Mg Tablet, 1 MG PO QHS, (Reported) Budesonide/Formoterol (Symbicort 160-4.5 Mcg Inhaler) 6 Gm Hfa.aer.ad, 2 PUFF INH BID, (Reported) Cholecalciferol (Vitamin D3) (Vitamin D3) 1,000 Unit Tablet, 1,000 UNITS PO BID, (Reported) Clopidogrel Bisulfate (Plavix) 75 Mg Tablet, 75 MG PO DAILY, (Reported) Glipizide (Glipizide) 5 Mg Tablet, 5 MG PO BID, (Reported) Metoprolol Tartrate (Metoprolol Tartrate) 50 Mg Tab, 50 MG PO DAILY, (Reported) Omeprazole (Omeprazole) 20 Mg Capsule.dr, 20 MG PO BID, (Reported) Potassium Chloride (K-Tab ER) 10 Meq Tablet.er, 30 MEQ PO BID, (Reported) Rivaroxaban (Xarelto) 20 Mg Tab, 20 MG PO DAILY, (Reported) Rosuvastatin Calcium (Rosuvastatin Calcium) 40 Mg Tablet, 40 MG PO QHS, (Reported) Terazosin HCl (Terazosin HCl) 1 Mg Cap, 1 MG PO QHS, (Reported) Scheduled PRN Albuterol Sulf (Albuterol Sulfate) 2.5 Mg/3 Ml Vial.neb, 2.5 MG INH Q4H PRN for SHORTNESS OF BREATH, (Reported) Albuterol Sulfate (Proair Hfa) 8.5 Gm Hfa.aer.ad, 2 PUFF INH Q4H PRN for SOB/WHEEZING, (Reported) Diclofenac Sodium (Voltaren Arthritis Pain) 1 % Gel..gram., 4 GM TOP BID PRN for SHOULDER PAIN, (Reported) APPLIED TO RIGHT SHOULDER Metoclopramide HCl (Metoclopramide HCl) 5 Mg Tablet, 5 MG PO Q6H PRN for NAUSEA, (Reported) Allergies Coded Allergies: No Known Allergies (Unverified , 03/27/21) RITU LOWRY MD May 05, 2021 15:52
--- NOTE | 2021-05-06 12:00 | IPNPDOC ---
Subjective Date Seen The patient was seen on 05/06/21. Subjective Chief Complaint/HPI Prateek reports improvement in his abdominal pain, is not having any nausea or vomiting. Reports that he is a poor appetite Objective Physical Examination General Exam: Positive: Alert, No Acute Distress Eye Exam: Positive: PERRLA, Conjunctiva & lids normal, EOMI; Negative: Sclera icteric Chest Exam: Positive: Clear to auscultation, Normal air movement Abdomen Exam: Positive: Normal bowel sounds, Soft; Negative: Tenderness, Hepatospenomegaly Extremity Exam: Positive: Normal pulses; Negative: Clubbing, Cyanosis, Edema Assessment /Plan Assessment # CLAUDIA with hypokalemia - continue IVFs and potassium repletion - likely home in am # Leukocytosis reactive - wbc has decreased # Abd pain syndrome - d/w gen surgery - tramadol prn # NIDDM - stable continue SS # COPD - stable w/o exacerbation - nebs prn # Chronic afib # CAD with h/o stents - resume xarelto, continue plavix Dispo: home in am Plan/VTE VTE Prophylaxis Ordered?: Yes VTE Exclusion Mechanical Proph: Other VTE Exclusion Pharmacological: Other VS, I&O, 24H, Fishbone Vital Signs/I&O Vital Signs Date Time Temp Pulse Resp B/P (MAP) Pulse Ox O2 Delivery O2 Flow Rate FiO2 05/06/21 11:31 97.5 59 18 113/65 (81) 98 Room Air I&O- Last 24 Hours up to 6 AM 05/06/21 05:59 Intake Total 1368 ml Output Total 1100 ml Balance 268 ml Laboratory Data 24H LABS Laboratory Tests 2 05/05/21 14:07: Coronavirus (COVID-19)(PCR) NEGATIVE, Influenza Type A (RT-PCR) NEGATIVE, Influe nza Type B (RT-PCR) NEGATIVE, Respiratory Syncytial Virus (PCR) NEGATIVE 05/05/21 17:30: Bedside Glucose (Misc Panel) 104 05/05/21 17:41: Urine Color YELLOW, Urine Appearance HAZY, Urine pH 5.0, Urine Specific [place] 1.009, Urine Protein 1+H, Urine Glucose (Auto)(UA) NEGATIVE, Urine Ketones (Auto) TRACEH, Urine Blood 2+H, Urine Nitrite NEGATIVE, Urine Bilirubin NEGATIVE, Urine Urobilinogen 0.2, Urine Leukocyte Esterase (Auto) NEGATIVE, Urine WBC (Auto) 3, Urine RBC (Auto) 4H, Urine Hyaline Casts (Auto) 1, Urine Bacteria (Auto) NEGATIVE, Urine Squamous Epithelial Cells 0, Urine Mucus (Auto) SMALL, Urine Sperm (Auto) , Urine Random Creatinine 85.3, Urine Random Sodium < 10 05/05/21 21:11: Bedside Glucose (Misc Panel) 119H 05/06/21 05:20: Nucleated Red Blood Cells % (auto) 0.0, Anion Gap 11, Glomerular Filtration Rate 46.0, Calcium Level 8.5L, Magnesium Level 1.8 CBC/BMP Laboratory Tests 05/06/21 05:20 Microbiology Microbiology 05/05/21 Blood Culture - Preliminary, Resulted No growth after 24 hours . All specim... 05/05/21 Blood Culture - Preliminary, Resulted No growth after 24 hours . All specim... ABDELRAHMAN ESTES MD May 06, 2021 12:00
--- NOTE | 2021-05-06 12:02 | IPNPDOC ---
Text Note Date of Service The patient was seen on 05/06/21. NOTE I followed up on Mr. Brown today. He looks more comfortable. He still says he has discomfort right around the bottom of the umbilicus. He still reports no appetite. He has not vomited. The loss of appetite, loss of taste is a chronic symptom of unclear etiology. Vital signs stable. Examination Patient looks much more comfortable Abdomen is flat, soft, nondistended. Nontender on palpation throughout. Labs reviewed, improving leukocytosis Impression and plan Anorexia and weight loss of unclear etiology which is chronic Evidence for chronic gastritis on endoscopy, on upper GI series that was done earlier this month. I would suggest increasing his PPI dose to twice daily. Patient wishes to go home. I will leave the decision up to the hospitalist service no surgical I do not see any further development of any symptom or syndrome that for him to require any surgical intervention at this time. I would suggest for him to follow-up with Dr. Esposito with his ongoing symptoms. VS,Judebone, I+O VS, Fishbone, I+O Laboratory Tests 05/06/21 05:20 Vital Signs Date Time Temp Pulse Resp B/P (MAP) Pulse Ox O2 Delivery O2 Flow Rate FiO2 05/06/21 11:31 97.5 59 18 113/65 (81) 98 Room Air I&O- Last 24 Hours up to 6 AM 05/06/21 06:00 Intake Total 1368 ml Output Total 1100 ml Balance 268 ml RITU LOWRY MD May 06, 2021 12:02
[2021-05-06] MEDS: PANTOPRAZOLE 40MG TAB (PROTONIX) PO SCH ×2 (12:58→20:17)
[2021-05-06] MEDS: PIPERACILLIN/TAZOBACTAM SOD 3.375 GM in D5W MINI-BAG PLUS 50 ML IV SCH (16:04)
[2021-05-06] MEDS: RIVAROXABAN 15 MG TAB (XARELTO) PO SCH (17:51)
[2021-05-06] MEDS: HumaLOG INSULIN (NovoLOG) PER UNIT SC SCH (20:16)
[2021-05-06] MEDS: ALPRAZolam 0.5 MG TAB PO SCH (20:17)
[2021-05-06] MEDS: POTASSIUM CHLORIDE 10 MEQ SR TABLET PO SCH (20:18)
--- NOTE | 2021-05-06 21:16 | ECGEPIP ---
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
[2021-05-07] VITALS: BP 91/51
[2021-05-07] MEDS: PIPERACILLIN/TAZOBACTAM SOD 3.375 GM in D5W MINI-BAG PLUS 50 ML IV SCH ×4 (00:15→18:24)
[2021-05-07] MEDS: KCL 20MEQ in NS 1000ML 1,000 ML IV SCH (03:49)
[2021-05-07 04:00] VITALS: BP 98/58
[2021-05-07 04:51] LABS: BASO % 0.2 % (0.0-1.0); EOS % 0.1 % (0.0-3.0); HEMOGLOBIN 12.1 g/dl (13.5-17.5); LYMPH # 0.9 10^3/uL (1.5-5.0); LYMPH % 5.6 % (24.0-44.0); MEAN CORPUSCULAR HEMOGLOBIN 27.9 pg (27.0-33.0); MEAN CORPUSCULAR HGB CONC 32.7 g/dl (32.0-36.5); MEAN CORPUSCULAR VOLUME 85.3 fl (80.0-96.0); MONO # 1.4 10^3/uL (0.0-0.8); MONO % 8.5 % (2.0-8.0); NEUTROPHILS # 14.1 10^3/uL (1.5-8.5); NEUTROPHILS % 84.8 % (36.0-66.0); PLATELET COUNT, AUTOMATED 112 10^3/uL (150-450); RED BLOOD COUNT 4.34 10^6/uL (4.30-6.10); WHITE BLOOD COUNT 16.7 10^3/uL (4.0-10.0)
[2021-05-07 05:17] LABS: BLOOD UREA NITROGEN 16 MG/DL (7-18); CARBON DIOXIDE LEVEL 25 MEQ/L (21-32); CHLORIDE LEVEL 105 MEQ/L (98-107); CREATININE FOR GFR 1.24 MG/DL (0.70-1.30); GLOMERULAR FILTRATION RATE > 60.0 (>42); GLUCOSE, FASTING 105 MG/DL (70-100); POTASSIUM SERUM 3.6 MEQ/L (3.5-5.1); SODIUM LEVEL 138 MEQ/L (136-145)
[2021-05-07] MEDS: SYMBICORT 160/4.5MCG INHALER 6GM INH SCH ×2 (07:47→19:31)
[2021-05-07 08:00] VITALS: BP 116/57
[2021-05-07] MEDS: allopurinoL 100 MG TAB PO SCH (08:25)
[2021-05-07] MEDS: CLOPIDOGREL 75 MG TAB PO SCH (08:25)
[2021-05-07] MEDS: VITAMIN D 1,000 INTERNATIONAL UNITS TABLET PO SCH ×2 (08:25→21:06)
[2021-05-07] MEDS: PANTOPRAZOLE 40MG TAB (PROTONIX) PO SCH ×2 (08:25→21:06)
[2021-05-07] MEDS: POTASSIUM CHLORIDE 10 MEQ SR TABLET PO SCH ×2 (08:25→21:07)
[2021-05-07] MEDS: METOPROLOL TART 50 MG TAB PO SCH (08:26)
--- NOTE | 2021-05-07 09:35 | IPNPDOC ---
Subjective Date Seen The patient was seen on 05/07/21. Subjective Chief Complaint/HPI Prateek is c/o poor appetite. He's afebrile. His abd pain is improved. Objective Physical Examination General Exam: Positive: Alert, No Acute Distress Eye Exam: Positive: PERRLA, Conjunctiva & lids normal, EOMI; Negative: Sclera icteric Chest Exam: Positive: Clear to auscultation, Normal air movement Abdomen Exam: Positive: Normal bowel sounds, Soft; Negative: Tenderness, Hepatospenomegaly Extremity Exam: Positive: Normal pulses; Negative: Clubbing, Cyanosis, Edema Assessment /Plan Assessment # CLAUDIA with hypokalemia - discontinue IVFs - potassium is normal - likely home in am # GPC bacteremia (11/15) # Leukocytosis reactive - wbc increased this am - zosyn iv tid - repeat b.cx today # Abd pain syndrome - d/w gen surgery - tramadol prn # NIDDM - stable continue SS # COPD - stable w/o exacerbation - nebs prn # Chronic afib # CAD with h/o stents - resume xarelto, continue plavix # Severe-Moderate PCM - start marinol Dispo: home in am Plan/VTE VTE Prophylaxis Ordered?: Yes VTE Exclusion Mechanical Proph: Other VTE Exclusion Pharmacological: Other VS, I&O, 24H, Fishbone Vital Signs/I&O Vital Signs Date Time Temp Pulse Resp B/P (MAP) Pulse Ox O2 Delivery O2 Flow Rate FiO2 05/07/21 08:26 59 116/57 05/07/21 08:00 98.0 18 98 Room Air I&O- Last 24 Hours up to 6 AM 05/07/21 06:00 Intake Total 2510 ml Output Total 2150 ml Balance 360 ml Laboratory Data 24H LABS Laboratory Tests 2 05/06/21 12:05: Bedside Glucose (Misc Panel) 140H 05/06/21 17:22: Bedside Glucose (Misc Panel) 122H 05/06/21 20:15: Bedside Glucose (Misc Panel) 107 05/07/21 04:32: Immature Granulocyte % (Auto) 0.8, Neutrophils (%) (Auto) 84.8H, Lymphocytes (%) (Auto) 5.6L, Monocytes (%) (Auto) 8.5H, Eosinophils (%) (Auto) 0.1, Basophils (%) (Auto) 0.2, Neutrophils # (Auto) 14.1H, Lymphocytes # (Auto) 0.9L, Monocytes # (Auto) 1.4H, Eosinophils # (Auto) 0.0, Basophils # (Auto) 0.0, Nucleated Red Blood Cells % (auto) 0.0, Anion Gap 8, Glomerular Filtration Rate > 60.0, Calci um Level 8.0L CBC/BMP Laboratory Tests 05/07/21 04:32 Microbiology Microbiology 05/07/21 Blood Culture, Received Pending 05/05/21 Blood Culture - Preliminary, Resulted 05/05/21 Blood Culture - Preliminary, Resulted ABDELRAHMAN ESTES MD May 07, 2021 09:35
[2021-05-07] MEDS ORDERED: SLF 3 ML SYR IV PRN (10:05)
[2021-05-07 12:00] VITALS: BP 110/62
[2021-05-07] MEDS: DRONABINOL 2.5 MG CAP (MARINOL) PO SCH ×2 (12:14→18:29)
[2021-05-07] MEDS: SLF 3 ML SYR IV SCH ×2 (14:03→21:07)
[2021-05-07 15:51] VITALS: BP 119/57
[2021-05-07] MEDS: RIVAROXABAN 15 MG TAB (XARELTO) PO SCH (18:24)
[2021-05-07 20:00] VITALS: BP 110/57
[2021-05-07] MEDS: HumaLOG INSULIN (NovoLOG) PER UNIT SC SCH (21:00)
[2021-05-07] MEDS: ALPRAZolam 0.5 MG TAB PO SCH (21:06)
[2021-05-08] VITALS: BP 96/53
[2021-05-08] MEDS: PIPERACILLIN/TAZOBACTAM SOD 3.375 GM in D5W MINI-BAG PLUS 50 ML IV SCH ×2 (01:24→08:02)
[2021-05-08 04:00] VITALS: BP 119/56
[2021-05-08 05:38] LABS: BASO # 0.1 10^3/uL (0.0-0.2); BASO % 0.4 % (0.0-1.0); EOS # 0.1 10^3/uL (0.0-0.5); EOS % 0.4 % (0.0-3.0); HEMATOCRIT 35.5 % (42.0-52.0); HEMOGLOBIN 11.6 g/dl (13.5-17.5); LYMPH # 1.7 10^3/uL (1.5-5.0); LYMPH % 10.5 % (24.0-44.0); MEAN CORPUSCULAR HGB CONC 32.7 g/dl (32.0-36.5); MEAN CORPUSCULAR VOLUME 85.7 fl (80.0-96.0); MONO # 1.5 10^3/uL (0.0-0.8); NEUTROPHILS # 12.7 10^3/uL (1.5-8.5); NEUTROPHILS % 78.6 % (36.0-66.0); PLATELET COUNT, AUTOMATED 126 10^3/uL (150-450); RED BLOOD COUNT 4.14 10^6/uL (4.30-6.10); WHITE BLOOD COUNT 16.2 10^3/uL (4.0-10.0)
[2021-05-08] MEDS: SLF 3 ML SYR IV SCH (05:59)
[2021-05-08] MEDS: SYMBICORT 160/4.5MCG INHALER 6GM INH SCH (07:37)
[2021-05-08 07:42] VITALS: BP 109/59
[2021-05-08] MEDS: PANTOPRAZOLE 40MG TAB (PROTONIX) PO SCH (08:17)
[2021-05-08] MEDS: CLOPIDOGREL 75 MG TAB PO SCH (08:17)
[2021-05-08] MEDS: POTASSIUM CHLORIDE 10 MEQ SR TABLET PO SCH (08:17)
[2021-05-08] MEDS: allopurinoL 100 MG TAB PO SCH (08:17)
[2021-05-08] MEDS: DRONABINOL 2.5 MG CAP (MARINOL) PO SCH (08:17)
[2021-05-08] MEDS: VITAMIN D 1,000 INTERNATIONAL UNITS TABLET PO SCH (08:18)
[2021-05-08 09:00] VITALS: BP 109/59
[2021-05-08] MEDS: METOPROLOL TART 50 MG TAB PO SCH (09:00)
[2021-05-08] MEDS ORDERED: CEFU50TA PO (10:41)
[2021-05-08] MEDS ORDERED: DRON2.5C11 PO (10:41)
[2021-05-08] MEDS ORDERED: TRAM50TA2 PO (10:41)
--- NOTE | 2021-05-09 14:17 | DSES ---
DISCHARGE SUMMARY DATE OF ADMISSION: 05/05/2021 DATE OF DISCHARGE: 05/08/2021 DISCHARGE DIAGNOSES: 1. Acute kidney injury with hypokalemia. 2. Streptococcus parasanguinis bacteremia. 3. Abdominal pain syndrome. 4. [id number] diabetes mellitus, type 2. 5. Chronic atrial fibrillation with chronic anticoagulation. PROCEDURES PERFORMED DURING HOSPITALIZATION: None. CONSULTANTS ON THE CASE: Dr. Rubio, general surgery DISPOSITION: Patient discharged home. CONDITION AT DISCHARGE: Stable. DISCHARGE INSTRUCTIONS: Patient is instructed to take oral antibiotics for an additional 6 days. He is to followup with his primary care physician (PCP) in approximately 1 week. He is to take Marinol appetite stimulant. RELEVANT LABORATORIES: Blood cultures times two grew Streptococcus parasanguinis. Repeat blood cultures showed no growth. COVID swab was negative. White count 16,000, hemoglobin 11.6, hematocrit 35, platelet count 126,000. Sodium 138, potassium 3.6, chloride 105, bicarbonate 25, anion gap 8, BUN 16, creatinine 1.24, lactic acid is 1.2, calcium 8, magnesium 1.7. IMAGING STUDIES OBTAINED DURING HOSPITAL STAY: Abdominal x-ray, which showed no acute pathology. CT of the abdomen and pelvis, which showed no acute intra-abdominal pathology. Renal ultrasound, which showed no acute pathology either. DISCHARGE MEDICATIONS: - cefuroxime 500 mg twice a day for 6 days - Marinol 2.5 mg with meals - Tramadol 50 mg every 6 hours as needed for pain - albuterol nebulizer every 4 hours as needed for shortness of breath - allopurinol 100 mg daily - alprazolam 1 mg at bedtime - budesonide two puffs twice a day - cholecalciferol 1000 units twice a day - Plavix 75 mg daily - Voltaren gel 4 grams topical twice a day for shoulder pain - glipizide 5 mg twice a day - Reglan 5 mg every 6 hours as needed for nausea - metoprolol tartrate 50 mg daily - omeprazole 20 mg twice a day - potassium chloride 30 mEq twice a day - Xarelto 20 mg daily - rosuvastatin 40 mg at bedtime - terazosin 1 mg by mouth at bedtime HOSPITAL COURSE: Prateek Mccabe is a 75-year-old gentleman who had recently undergone an outpatient colonoscopy with Dr. Esposito to investigate ongoing weight loss that he had been experiencing. He underwent polypectomies at that time. He presented to the hospital with generalized weakness and abdominal pain. He was found to have acute kidney injury. CT of the abdomen and pelvis done in the emergency room failed to show any acute pathology. Dr. Rubio of general surgery was consulted. He saw the patient and did not feel he had a surgical abdomen. Patient was hydrated with intravenous (IV) fluids. Blood cultures drawn upon admission did grow Streptococcus parasanguinis. Patient was transitioned to Zosyn once this was found out. Culture and sensitivities indicated that this was sensitive to cephalosporin. Patient was transitioned to the oral agent at the time of discharge and discharged home in stable condition. At the time of discharge, the patient's temperature is 97.7, pulse 66 and regular, respirations 20, blood pressure 109/59, oxygen saturation 95% on room air. General: The patient is alert and oriented times three. He appears his stated age. He is in no acute distress. Skin is intact and warm to touch without rash. Head is atraumatic. Pupils symmetric and reactive to light. Oropharynx is clear. Neck is supple. Lung sounds present without rales or rhonchi. Heart is S1, S2. No audible murmurs, rubs, or gallops. Abdomen is soft, nontender, nondistended. Extremities without any cyanosis, clubbing or edema. A total of 30 minutes spent completing all discharge paperwork.
== END 2021-05-08 12:30 | disposition home or self-care (01) | DRG 683 ==
LOC: M ED 07:40 → M ED INP 10:47 → ENRESERV 15:30 → M PCU 16:45
PROVIDERS: ADMIT Internal Medicine; ATTEND Internal Medicine
DX: N17.9 Acute kidney failure, unspecified (principal); I48.20 Chronic atrial fibrillation, unspecified; R78.81 Bacteremia; I27.20 Pulmonary hypertension, unspecified; J44.9 Chronic obstructive pulmonary disease, unspecified; E83.42 Hypomagnesemia; E11.9 Type 2 diabetes mellitus without complications; R63.0 Anorexia; E87.6 Hypokalemia; I10 Essential (primary) hypertension; Z66 Do not resuscitate; K21.9 Gastro-esophageal reflux disease without esophagitis; N40.0 Benign prostatic hyperplasia without lower urinary tract symptoms; E78.5 Hyperlipidemia, unspecified; K29.50 Unspecified chronic gastritis without bleeding; B95.5 Unspecified streptococcus as the cause of diseases classified elsewhere; R63.4 Abnormal weight loss; I25.10 Atherosclerotic heart disease of native coronary artery without angina pectoris; Z95.5 Presence of coronary angioplasty implant and graft; Z95.3 Presence of xenogenic heart valve; Z79.01 Long term (current) use of anticoagulants; Z95.0 Presence of cardiac pacemaker; F17.200 Nicotine dependence, unspecified, uncomplicated; Z86.010 Personal history of colon polyps; Z20.822 Contact with and (suspected) exposure to COVID-19

== ENCOUNTER → 2022-02-24 | Outpatient (CLI) | payer MEDICARE ==
[~2022-02-24] MED LIST changes: +BAYE81TA10 PO; +CEFU50TA PO; -D31000TA2 PO; +DRON2.5C11 PO; -KLOR20TA42 PO; +MELA3TAB30 PO; +METF-1191 PO; -METF-954 PO; +MIRT1TAB16 PO; +OMEP40CA4 PO; +POTA-141 PO; +SPIR1CAP INH; +TORS10TA3 PO; +TRAM50TA2 PO; +VITA100093 PO
== END ==
LOC: M LABSMTC 09:29
PROVIDERS: ATTEND Anesthesiology
DX: Z11.52 Encounter for screening for COVID-19 (principal); Z20.828 Contact with and (suspected) exposure to other viral communicable diseases

== ENCOUNTER 2022-03-01 08:41 | Day surgery (SDC) | payer MEDICARE ==
[~2022-03-01] VITALS: Ht 180.3 cm; Wt 79.7 kg
[~2022-03-01 08:41] MED LIST changes: +ALBU2.5V10 INH; -ALBU83IN INH; +LR 1,000 ML IV ONE
[2022-03-01] MEDS ORDERED: LIDOCAINE 1% SDV 30ML VIAL As Ordered ONE (10:21)
[2022-03-01] MEDS ORDERED: BACITRACIN OINTMENT 30GM TUBE As Ordered ONE (10:21)
[2022-03-01] MEDS ORDERED: ISOVUE-300 61% 50ML VIAL As Ordered ONE (10:21)
[2022-03-01] MEDS ORDERED: ONDANSETRON 4MG/2ML VIAL As Ordered ONE (10:43)
[2022-03-01] MEDS ORDERED: LIDOCAINE 2% 100MG/5ML SDV (FOR ANES.) As Ordered ONE (10:43)
[2022-03-01] MEDS ORDERED: propofoL 200 MG/20 ML VIAL As Ordered ONE (10:43)
[2022-03-01] MEDS ORDERED: fentaNYL 100 MCG/2 ML INJECTION As Ordered ONE (10:44)
[2022-03-01] MEDS ORDERED: MIDAZOLAM INJ 2MG/2ML VIAL (J2250 PER 1MG) As Ordered ONE (10:44)
[2022-03-01] MEDS ORDERED: ceFAZolin SOD 2 GM in IV 1 EA IV ONE (11:00)
[2022-03-01] MEDS ORDERED: ceFAZolin 2 GM/D5W 50 ML IV BAG (J0690 PER 500MG) As Ordered ONE (11:27)
[2022-03-01] MEDS ORDERED: ceFAZolin 1GM VIAL (J0690 PER 500MG) As Ordered ONE (11:28)
[2022-03-01 12:56] VITALS: BP 145/65
== END 2022-03-01 12:58 | disposition home or self-care (01) ==
LOC: M SDC 08:41
PROVIDERS: ATTEND Internal Medicine Cardiovascular Disease
DX: Z45.010 Encounter for checking and testing of cardiac pacemaker pulse generator [battery] (principal); I44.2 Atrioventricular block, complete; I48.20 Chronic atrial fibrillation, unspecified; I11.9 Hypertensive heart disease without heart failure; I25.9 Chronic ischemic heart disease, unspecified; I35.9 Nonrheumatic aortic valve disorder, unspecified; Z95.5 Presence of coronary angioplasty implant and graft; Z95.2 Presence of prosthetic heart valve; J44.9 Chronic obstructive pulmonary disease, unspecified; I65.29 Occlusion and stenosis of unspecified carotid artery; E11.9 Type 2 diabetes mellitus without complications; E78.5 Hyperlipidemia, unspecified; E46 Unspecified protein-calorie malnutrition; Z79.899 Other long term (current) drug therapy; Z79.01 Long term (current) use of anticoagulants; Z79.82 Long term (current) use of aspirin; Z79.51 Long term (current) use of inhaled steroids
CPT/HCPCS: 33227; C1786; J0690; J2250; J2405; J3010

== ENCOUNTER → 2022-10-31 | Outpatient (CLI) | payer MEDICARE, OTHER ==
[~2022-10-31] MED LIST changes: +CLOP75TA99 PO; -LR 1,000 ML IV ONE; -PLAV1TAB2 PO
== END ==
LOC: M PLALAB 10:12
PROVIDERS: ATTEND Physical Medicine & Rehabilitation
DX: M47.817 Spondylosis without myelopathy or radiculopathy, lumbosacral region (principal)

== ENCOUNTER → 2023-01-10 | Outpatient (CLI) | payer OTHER, MEDICARE ==
[~2023-01-10] MED LIST changes: +ISOVUE-300 61% 100ML VIAL As Ordered ONE; +LIDOCAINE 1% MDV 20ML VIAL As Ordered ONE
== END ==
LOC: M RAD 11:26
PROVIDERS: ATTEND Nurse Practitioner Family
DX: M75.101 Unspecified rotator cuff tear or rupture of right shoulder, not specified as traumatic (principal)
CPT/HCPCS: 23350; 73201; 77002; Q9967

== ENCOUNTER 2023-03-07 09:25 | Day surgery (SDC) | payer MEDICARE, OTHER ==
[~2023-03-07] VITALS: Ht 180.3 cm; Wt 84.4 kg
[~2023-03-07 09:25] MED LIST changes: +BSS IRRIG/VANCO(10MG)/TOBRA(5MG)/EPINEPH(1:1000-0.5CC)500ML BAG-ORONLY IR ONE; +CEFUROXIME 1MG/0.1ML INTRACAMERAL INJ As Ordered ONE; -ISOVUE-300 61% 100ML VIAL As Ordered ONE; -LIDOCAINE 1% MDV 20ML VIAL As Ordered ONE; +LIDOCAINE 1% SDV 5ML VIAL As Ordered ONE; +LIDOCAINE 3.5 % 1ML OPHTH TOPICAL GEL OU ONE; +OFLOXACIN 0.3 % (OCUFLOX) OPTH SOL 5ML OD ONE; +PHENYLEPHRINE 10% OPHTH SOL 5ML OD PRN; +XARE10TA PO
[2023-03-07] MEDS ORDERED: fentaNYL 100 MCG/2 ML INJECTION As Ordered ONE (09:41)
[2023-03-07] MEDS ORDERED: MIDAZOLAM INJ 2MG/2ML VIAL As Ordered ONE (09:41)
[2023-03-07] MEDS: CYCLOPENTOLATE 1% OPHTH SOLN 2ML BTL OD SCH ×2 (10:32→10:33)
[2023-03-07] MEDS: PHENYLEPHRINE 2.5% OPHTH SOL 2ML OD SCH (10:33)
[2023-03-07] MEDS: TROPICAMIDE 1% OPHTH SOLN 15ML OD SCH (10:33)
[2023-03-07 11:33] VITALS: BP 121/67
== END 2023-03-07 11:51 | disposition home or self-care (01) ==
LOC: M SDC 09:25
PROVIDERS: ATTEND Ophthalmology
DX: H25.11 Age-related nuclear cataract, right eye (principal); I48.91 Unspecified atrial fibrillation; I10 Essential (primary) hypertension; E78.5 Hyperlipidemia, unspecified; Z95.0 Presence of cardiac pacemaker; I25.2 Old myocardial infarction; I25.10 Atherosclerotic heart disease of native coronary artery without angina pectoris; Z79.899 Other long term (current) drug therapy; F17.200 Nicotine dependence, unspecified, uncomplicated
CPT/HCPCS: 66984; J0697; J2250; J3010; V2632

== ENCOUNTER → 2023-08-14 | Outpatient (CLI) | payer OTHER, MEDICARE ==
[~2023-08-14] MED LIST changes: -BSS IRRIG/VANCO(10MG)/TOBRA(5MG)/EPINEPH(1:1000-0.5CC)500ML BAG-ORONLY IR ONE; -CEFUROXIME 1MG/0.1ML INTRACAMERAL INJ As Ordered ONE; -GABA-283 PO; +GABA-284 PO; +GLIP5TAB17 PO; -GLIP5TAB8 PO; -K-TA10TA2 PO; -LIDOCAINE 1% SDV 5ML VIAL As Ordered ONE; -LIDOCAINE 3.5 % 1ML OPHTH TOPICAL GEL OU ONE; -OFLOXACIN 0.3 % (OCUFLOX) OPTH SOL 5ML OD ONE; -PHENYLEPHRINE 10% OPHTH SOL 5ML OD PRN; +POTA-165 PO
== END ==
LOC: M RAD 09:34
PROVIDERS: ATTEND Physical Medicine & Rehabilitation
DX: M47.27 Other spondylosis with radiculopathy, lumbosacral region (principal)

== ENCOUNTER 2024-05-20 16:32 | Emergency (ER) | payer OTHER, MEDICARE ==
[~2024-05-20] VITALS: Ht 182.9 cm; Wt 96.8 kg
[~2024-05-20 16:32] MED LIST changes: -ROSU40TA4 PO; +ROSU40TA63 PO
[2024-05-20 18:30] LABS: VENOUS BASE EXCESS 4.4 (-2.0-2.0); VENOUS HCO3 29.8 MMOL/L (23.0-27.0); VENOUS O2 SATURATION 68.4 % (60.0-80.0); VENOUS PARTIAL PRESSURE CO2 48.7 mmHg (38.0-50.0); VENOUS PARTIAL PRESSURE O2 34.9 mmHg (30.0-50.0); VENOUS PH 7.405 UNITS (7.330-7.430); VENOUS STANDARD HCO3 27.9 MMOL/L; VENOUS TOTAL CO2 31.3 MMOL/L (24.0-28.0)
[2024-05-20 18:37] LABS: BASO # 0.1 10^3/uL (0.0-0.2); BASO % 0.5 % (0.0-1.0); EOS # 0.3 10^3/uL (0.0-0.5); EOS % 2.8 % (0.0-3.0); HEMATOCRIT 28.4 % (42.0-52.0); LYMPH % 8.2 % (24.0-44.0); MEAN CORPUSCULAR HEMOGLOBIN 30.8 pg (27.0-33.0); MEAN CORPUSCULAR HGB CONC 31.7 g/dl (32.0-36.5); MEAN CORPUSCULAR VOLUME 97.3 fl (80.0-96.0); MONO % 8.8 % (2.0-8.0); NEUTROPHILS # 9.1 10^3/uL (1.5-8.5); NEUTROPHILS % 78.8 % (36.0-66.0); PLATELET COUNT, AUTOMATED 202 10^3/uL (150-450); RED BLOOD COUNT 2.92 10^6/uL (4.30-6.10); WHITE BLOOD COUNT 11.6 10^3/uL (4.0-10.0)
[2024-05-20 18:58] LABS: ALBUMIN 2.6 G/DL (3.2-5.2); BILIRUBIN,DIRECT 0.3 MG/DL (<0.4); BILIRUBIN,TOTAL 0.7 MG/DL (0.3-1.2); CALCIUM LEVEL 8.8 MG/DL (8.3-10.6); CREATININE FOR GFR 2.27 MG/DL (0.70-1.30); POTASSIUM SERUM 4.2 MMOL/L (3.5-5.1); TOTAL PROTEIN 5.6 G/DL (5.7-8.2)
[2024-05-20 18:59] LABS: CK-MB VALUE MASS 2.5 NG/ML (<3.6)
[2024-05-20] MEDS: CEFEPIME HCL 2 GM in D5W MINI-BAG PLUS 50 ML IV ONE (19:01)
[2024-05-20] MEDS: MORPHINE 4 MG/ML 1ML VIAL IV ONE ×2 (19:01→20:13)
[2024-05-20 19:02] LABS: THYROID STIMULATING HORMONE 1.633 uIU/ML (0.55-4.78)
[2024-05-20 19:03] LABS: FREE T4 0.85 NG/DL (0.89-1.76)
[2024-05-20 19:21] LABS: MB/CK RELATIVE INDEX 8.92 (< OR =4)
[2024-05-20 20:54] LABS: INR 1.12; PARTIAL THROMBOPLASTIN TIME 39.8 SECONDS (24.8-34.2); PROTHROMBIN TIME 14.1 SECONDS (12.5-14.5)
[2024-05-20 21:45] VITALS: BP 134/68; TEMP 98; O2SAT 94
[2024-05-20] MEDS: PANTOPRAZOLE 40MG VIAL IV ONE (21:52)
== END 2024-05-20 21:59 | disposition short-term general hospital (02) ==
LOC: EDBD 16:32 → M ED 16:32
DX: J18.9 Pneumonia, unspecified organism (principal); D62 Acute posthemorrhagic anemia; R79.89 Other specified abnormal findings of blood chemistry; I48.91 Unspecified atrial fibrillation; I25.119 Atherosclerotic heart disease of native coronary artery with unspecified angina pectoris; E11.9 Type 2 diabetes mellitus without complications; K21.9 Gastro-esophageal reflux disease without esophagitis; N40.0 Benign prostatic hyperplasia without lower urinary tract symptoms; I10 Essential (primary) hypertension; J44.9 Chronic obstructive pulmonary disease, unspecified; F17.210 Nicotine dependence, cigarettes, uncomplicated; Z79.899 Other long term (current) drug therapy
CPT/HCPCS: 71045; 80048; 80076; 82550; 82553; 82803; 83880; 84439; 84443; 84484; 85025; 85610; 85730; 87040; 87486; 87581; 87633; 87798; 93005; 93041; 94760; 96374; 96375; 96376; 99285; J0692; J2470

== ENCOUNTER 2024-05-25 19:27 | Emergency (ER) | payer OTHER, MEDICARE ==
[~2024-05-25] VITALS: Ht 182.9 cm; Wt 86.4 kg
[~2024-05-25 19:27] MED LIST changes: -ROSU40TA63 PO; +ROSU40TA81 PO
[2024-05-25 20:43] LABS: BASO # 0.1 10^3/uL (0.0-0.2); BASO % 0.6 % (0.0-1.0); EOS # 3.2 10^3/uL (0.0-0.5); EOS % 18.8 % (0.0-3.0); HEMATOCRIT 28.3 % (42.0-52.0); HEMOGLOBIN 9.1 g/dl (13.5-17.5); LYMPH % 11.6 % (24.0-44.0); MEAN CORPUSCULAR HEMOGLOBIN 31.5 pg (27.0-33.0); MEAN CORPUSCULAR HGB CONC 32.2 g/dl (32.0-36.5); MEAN CORPUSCULAR VOLUME 97.9 fl (80.0-96.0); MONO # 1.3 10^3/uL (0.0-0.8); MONO % 7.7 % (2.0-8.0); NEUTROPHILS # 10.4 10^3/uL (1.5-8.5); NEUTROPHILS % 60.9 % (36.0-66.0); PLATELET COUNT, AUTOMATED 162 10^3/uL (150-450); RED BLOOD COUNT 2.89 10^6/uL (4.30-6.10); WHITE BLOOD COUNT 17.1 10^3/uL (4.0-10.0)
[2024-05-25 20:52] LABS: INR 1.05; PROTHROMBIN TIME 13.4 SECONDS (12.5-14.5)
[2024-05-25 21:05] LABS: CK-MB VALUE MASS 2.2 NG/ML (<3.6)
[2024-05-25 21:06] LABS: MB/CK RELATIVE INDEX 6.47 (< OR =4)
[2024-05-25 21:07] LABS: ALBUMIN 2.5 G/DL (3.2-5.2); BILIRUBIN,DIRECT 0.2 MG/DL (<0.4); BILIRUBIN,TOTAL 0.6 MG/DL (0.3-1.2); CALCIUM LEVEL 8.3 MG/DL (8.3-10.6); GLOMERULAR FILTRATION RATE 21.8 (>42); POTASSIUM SERUM 3.9 MMOL/L (3.5-5.1); TOTAL PROTEIN 5.4 G/DL (5.7-8.2)
[2024-05-25 21:58] VITALS: BP 117/58; TEMP 97.6; O2SAT 97
== END 2024-05-25 23:03 | disposition left against medical advice (07) ==
LOC: M ED 19:27
DX: Z53.21 Procedure and treatment not carried out due to patient leaving prior to being seen by health care provider (principal)

== ENCOUNTER → 2024-11-24 | Outpatient (CLI) | payer OTHER, MEDICARE ==
[~2024-11-24] MED LIST changes: +GABA-1172 PO; -GABA-282 PO; -TERA1CA PO; +TERA1CAP62 PO
== END ==
LOC: M RAD 10:26
PROVIDERS: ATTEND Internal Medicine Nephrology
DX: I12.0 Hypertensive chronic kidney disease with stage 5 chronic kidney disease or end stage renal disease (principal); N18.6 End stage renal disease

== ENCOUNTER → 2025-02-10 | Outpatient (CLI) | payer MEDICARE, OTHER ==
[~2025-02-10] MED LIST changes: -DRON2.5C11 PO; +DRON2.5C17 PO; +GLIP2.5T46 PO; -GLIP2.5T6 PO
== END ==
LOC: M WHC 07:26
PROVIDERS: ATTEND Internal Medicine
DX: N50.89 Other specified disorders of the male genital organs (principal); N62 Hypertrophy of breast; N50.819 Testicular pain, unspecified; N63.20 Unspecified lump in the left breast, unspecified quadrant
CPT/HCPCS: 76870; 77066; G0279